=== PATIENT | female | born 1990 | race Caucasian/White ===

== ENCOUNTER → 2020-03-11 13:27 | Outpatient (BNVA) | payer OTHER, SELFPAY | PROVIDERS: PCP Internal Medicine; Referring Provider Internal Medicine; Visit Provider Nurse Practitioner | DX: K90.41 Non-celiac gluten sensitivity (principal); K58.9 Irritable bowel syndrome, unspecified; R10.9 Unspecified abdominal pain; R11.0 Nausea; K64.9 Unspecified hemorrhoids | CPT/HCPCS: 99214 ==

== ENCOUNTER → 2020-04-02 14:13 | Outpatient (BNVA) | payer OTHER, SELFPAY | PROVIDERS: PCP Internal Medicine; Visit Provider Nurse Practitioner | DX: K58.9 Irritable bowel syndrome, unspecified (principal); K90.41 Non-celiac gluten sensitivity; K62.89 Other specified diseases of anus and rectum; R11.0 Nausea; K64.9 Unspecified hemorrhoids | CPT/HCPCS: 99212 ==

== ENCOUNTER → 2020-09-30 09:20 | Outpatient (BNVA) | payer OTHER, SELFPAY | PROVIDERS: PCP Internal Medicine; Referring Provider Internal Medicine; Visit Provider Psychiatry & Neurology Neurology | DX: G47.00 Insomnia, unspecified (principal); G47.62 Sleep related leg cramps; G47.19 Other hypersomnia | CPT/HCPCS: 99202 ==

== ENCOUNTER → 2020-11-05 20:01 | Outpatient (REF) | payer OTHER, SELFPAY | LOC: HO.SL 20:01 | PROVIDERS: Visit Provider Psychiatry & Neurology Neurology | DX: G47.00 Insomnia, unspecified (principal); G47.19 Other hypersomnia; G47.62 Sleep related leg cramps | CPT/HCPCS: 95810 ==

== ENCOUNTER → 2020-12-16 08:35 | Outpatient (BNVA) | payer OTHER, SELFPAY | PROVIDERS: PCP Internal Medicine; Visit Provider Psychiatry & Neurology Neurology ==

== ENCOUNTER → 2020-12-23 13:14 | Outpatient (BNVA) | payer OTHER, SELFPAY | PROVIDERS: Visit Provider Nurse Practitioner ==

== ENCOUNTER 2021-05-12 06:43 | Outpatient (REF) | payer OTHER, SELFPAY ==
[2021-05-12 11:25] LABS: MANUAL DIFF FLAG NO
[2021-05-12 11:36] LABS: Basophils Absolute Auto 0.1 X10*3/uL (0.0-0.2); Basophils Percent Auto 0.4 % (0-2); Eosinophils Absolute Auto 0.3 X10*3/uL (0.0-0.4); Eosinophils Percent Auto 2.6 % (0-4); Hematocrit 42.6 % (37.0-47.0); Hemoglobin 14.6 g/dl (12.0-16.0); Imm Gran Abs Auto 0.03 X10*3/uL (0.00-0.03); Imm Gran Pct Auto 0.3 % (0.0-0.4); Lymphocytes Absolute Auto 4.6 X10*3/uL (1.2-4.9); Mean Corpuscular HGB Conc 34.3 g/dl (31.0-35.0); Mean Corpuscular Hemoglobin 31.3 pg (27.0-33.0); Mean Corpuscular Volume 91.4 fL (80.0-98.0); Monocytes Absolute Auto 0.6 X10*3/uL (0.1-1.2); Monocytes Percent Auto 5.3 % (2-11); Neutrophils Absolute Auto 6.4 x10*3/uL (2.0-8.3); Neutrophils Percent Auto 53.4 % (45-73); Platelet Count 386 X10*3/uL (160-400); Red Blood Count 4.66 X10*6/uL (4.20-5.50); Red Cell Distribution Width 12.5 % (11.0-16.0)
[2021-05-12 12:06] LABS: Alanine Aminotransferase 15 U/L (0-31); Albumin Level 4.3 g/dL (3.5-5.0); Alkaline Phosphatase 36 U/L (39-117); Anion Gap 13 (12-20); Aspartate Amino Transferase 12 U/L (5-31); Bilirubin Total 0.8 mg/dL (0.0-1.0); Blood Urea Nitrogen 8 mg/dL (9-16); Calcium 9.7 mg/dL (8.4-10.2); Carbon Dioxide 25 mmol/L (22-29); Chloride 108 mmol/L (96-108); Cholesterol 188 mg/dL; Estimated Glomerular Filt Rate > 60; Glucose Fasting 79 mg/dL (60-99); HDL Cholesterol 34 mg/dL; LDL Cholesterol Calculated 133 mg/dl; Potassium 4.2 mmol/L (3.3-5.1); Sodium 142 mmol/L (135-145); Total Protein 7.4 g/dL (6.5-8.0); Triglycerides 105 mg/dL
[2021-05-12 12:28] LABS: TSH reflex Free T4 1.72 uIU/mL (0.32-4.0)
== END 2021-05-12 06:44 | disposition home or self-care (01) ==
LOC: HO.HMGCLDS 06:43
PROVIDERS: PCP Internal Medicine; Visit Provider Internal Medicine
DX: E66.01 Morbid (severe) obesity due to excess calories (principal); G44.89 Other headache syndrome; M45.9 Ankylosing spondylitis of unspecified sites in spine; R52 Pain, unspecified
CPT/HCPCS: 36415; 80053; 80061; 84443; 85025

== ENCOUNTER 2022-10-09 10:45 | Outpatient (REF) | payer BC, SELFPAY ==
[2022-10-09 13:30] LABS: MANUAL DIFF FLAG NO
[2022-10-09 13:33] LABS: Basophils Absolute Auto 0.1 X10*3/uL (0.0-0.2); Basophils Percent Auto 0.7 % (0-2); Eosinophils Absolute Auto 0.1 X10*3/uL (0.0-0.4); Eosinophils Percent Auto 1.9 % (0-4); Hematocrit 41.9 % (37.0-47.0); Hemoglobin 14.4 g/dl (12.0-16.0); Imm Gran Abs Auto 0.02 X10*3/uL (0.00-0.03); Imm Gran Pct Auto 0.3 % (0.0-0.4); Lymphocytes Absolute Auto 3.3 X10*3/uL (1.2-4.9); Lymphocytes Percent Auto 44.8 % (20-40); Mean Corpuscular HGB Conc 34.4 g/dl (31.0-35.0); Mean Corpuscular Hemoglobin 30.6 pg (27.0-33.0); Mean Corpuscular Volume 89.1 fL (80.0-98.0); Mean Platelet Volume 9.3 fL (9.4-12.3); Monocytes Absolute Auto 0.5 X10*3/uL (0.1-1.2); Neutrophils Absolute Auto 3.3 x10*3/uL (2.0-8.3); Neutrophils Percent Auto 45.3 % (45-73); Platelet Count 323 X10*3/uL (160-400); Red Cell Distribution Width 12.4 % (11.0-16.0); White Blood Count 7.3 X10*3/uL (4.8-10.8)
[2022-10-09 14:00] LABS: Alanine Aminotransferase 27 U/L (0-31); Albumin Level 4.3 g/dL (3.5-5.0); Alkaline Phosphatase 35 U/L (39-117); Anion Gap 13 (12-20); Aspartate Amino Transferase 19 U/L (5-31); Bilirubin Total 0.9 mg/dL (0.0-1.0); Blood Urea Nitrogen 9 mg/dL (9-16); Calcium 9.7 mg/dL (8.4-10.2); Carbon Dioxide 25 mmol/L (22-29); Chloride 107 mmol/L (96-108); Cholesterol 189 mg/dL; Estimated Glomerular Filt Rate > 60; Glucose Fasting 86 mg/dL (60-99); HDL Cholesterol 36 mg/dL; LDL Cholesterol Calculated 130 mg/dl; Potassium 4.5 mmol/L (3.3-5.1); Sodium 140 mmol/L (135-145); Total Protein 7.2 g/dL (6.5-8.0); Triglycerides 115 mg/dL
[2022-10-09 14:15] LABS: TSH reflex Free T4 1.21 uIU/mL (0.32-4.0)
== END 2022-10-09 10:46 | disposition home or self-care (01) ==
LOC: HO.HMGCLDS 10:45
PROVIDERS: PCP Internal Medicine; Visit Provider Internal Medicine
DX: E66.09 Other obesity due to excess calories (principal); F33.9 Major depressive disorder, recurrent, unspecified; F41.1 Generalized anxiety disorder; F43.10 Post-traumatic stress disorder, unspecified; G89.29 Other chronic pain; M45.9 Ankylosing spondylitis of unspecified sites in spine; Z91.09 Other allergy status, other than to drugs and biological substances
CPT/HCPCS: 36415; 80053; 80061; 84443; 85025

== ENCOUNTER 2023-01-14 07:46 | Outpatient (AMB) | payer BC, SELFPAY ==
[2023-01-14 07:49] VITALS: BP 106/64; PULSE 84; O2SAT 98; BMI 44.5
--- NOTE | 2023-01-14 07:49 | MHC.PC.OV ---
Vital Signs 01/14/23 07:49 Height 5 ft Weight 228 lb BMI 44.5 BP 106/64 Blood Pressure Location Rt brachial Position Sitting Pulse 84 Pulse Source Pulse Oximeter Pulse Oximetry (%) 98 Oxygen Delivery Method Room Air Intake Visit Reasons: 3m follow up- need earliest Intake Note: Pt is here today for 3 months follow up visit. Allergies naproxen Allergy (Mild, Verified 01/14/23 07:51) hives etanercept [Enbrel] Adverse Reaction (Mild, Verified 01/14/23 07:51) injection site reaction methotrexate Adverse Reaction (Mild, Verified 01/14/23 07:51) rash, hairloss tizanidine Adverse Reaction (Mild, Verified 01/14/23 07:51) Unknown Medication List - Last Reconciled 01/14/23 by Jah Rodríguez MD adalimumab (Humira) 40 mg subcut Q2W cetirizine 10 mg PO DAILY 90 days clotrimazole-betamethasone 1-0.05 % 1 appl topical ONCE 30 days dicyclomine 20 mg (2 x 10 mg) PO QID 30 days L norgest/e.estradiol-e.estrad 0.15 mg-30 mcg (84)/10 mcg (7) 1 tab PO DAILY lamotrigine 200 mg PO DAILY lamotrigine 25 mg PO DAILY montelukast 10 mg PO DAILY 90 days ondansetron HCl 4 mg PO Q8H PRN pregabalin 150 mg PO BID propranolol 20 mg PO BID PRN 90 days tramadol 50 mg PO DAILY 90 days tramadol 50 mg PO DAILY 90 days Tobacco use date assessed: 01/14/23 Dental Screening Dental Screen Date: 01/14/23 Did you have a dental visit in the last 12 months?: Yes Did you have a dental problem in the last 6 months where you did not have access to dental care?: No Was dental information given to patient?: Patient has dentist HPI 3m follow up- need earliest HPI Details Patient is a 32-year-old female came in for 3 month follow-up appointment on pain management She is in a process to make appointment with Dr. Haskins Rheumatology at [facility], currently taking Humira Patient is on tramadol 50 mg daily for lower back pain secondary to ankylosing spondylitis? Medication has been helping her she is complying with the treatment plan.? Her IBS is flaring off and on causing bloating sensation in the abdomen diarrhea alternating with constipation She said that she was evaluated by Gastroenterology 2 years ago and she would like to go back and talk to them. Referral placed. Her other medications are propranolol for anxiety through Psychiatry Montelukast for allergies Lamotrigine through Psychiatry Maddie, by the air crew officer in [place]. Until she get establish with new air crew officer Dicyclomine for IBS Cetirizine for allergies Patient's BMI is above 40, she is requesting assistance , I have sent message to our dietitian to book appointment for the patient Patient is to return for follow-up in 3 months [facility] Medical History Ankylosing spondylitis Anxiety, generalized Chronic pain Depression, major, recurrent Difficulty sleeping Encounter for control pills maintenance Headache syndrome Pain management PTSD (post-traumatic stress disorder) Surgical History History of carpal tunnel surgery of right wrist History of wisdom tooth extraction Hx of cholecystectomy Hx of colonoscopy (~2011) Family History Father Obesity HTN (hypertension) Mother Asthma Obesity HTN (hypertension) Atrial fibrillation Stomach problems Brother No problems noted. 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 1. Little interest or pleasure in doing things: several days 2. Feeling down, depressed, or hopeless: several days 3. Trouble falling or staying asleep, or sleeping too much: nearly every day 4. Feeling tired or having little energy: nearly every day 5. Poor appetite or overeating: more than half the days 6. Feeling bad about yourself - or that you are a failure or have let yourself or your family down: not at all 7. Trouble concentrating on things, such as reading the newspaper or watching television: more than half the days 8. Moving or speaking so slowly that other people could have noticed. Or the opposite - being so fidgety or restless that you have been moving around a lot more than usual: not at all 9. Thoughts that you would be better off or of hurting yourself in some way: not at all Total score: 12 Depression Screening Interpretation: Positive 80741 - PHQ-9 Billing: Yes Source: Developed by Drs. Rosas Ravi, Nelly Jacobs, Corey Wallace and colleagues, with an educational parveen from [employer]. Thrive Questionnaire Date Thrive assessed: 07/01/21 JESSICA-7 AMB Questionnaire JESSICA-7 Date JESSICA - 7 assessed: 07/01/21 Source: Developed by Drs. Rosas Ravi, Nelly Jacobs, Corey Wallace and colleagues, with an educational parveen from [employer]. Review of Systems Const Denies chills and Denies fever(s) ENT Denies epistaxis and Denies nasal discharge Card Denies chest pain Resp Denies chest congestion, Denies cough and Denies hemoptysis Skin/Breast Denies rash Neuro Reports no additional complaints Psych Reports no additional complaints Endo Reports no additional complaints Physical exam (Primary Care) Vital Signs: Last Vital Signs Pulse 84 01/14/23 07:49 BP 106/64 01/14/23 07:49 Pulse Ox 98 01/14/23 07:49 Oxygen Delivery Method Room Air 01/14/23 07:49 BMI result Body Mass Index 44.5 Tobacco/Smoking Status: Tobacco use Status Tobacco use date assessed 10/06/22 10/06/22 13:26 Patient Tobacco Use Status Former Tobacco user 11/03/22 08:40 e-Cigarette/Vaping Use Currently Using 10/06/22 13:26 Depression Screening Interpretation: Positive Thrive Assessment: Date of Thrive Assessment Date Thrive assessed 07/01/21 10/06/22 13:26 Const General: cooperative, comfortable and no acute distress Orientation/consciousness: patient oriented x3 HENMT Head: Yes normocephalic Eyes General: appearance normal, both eyes and all related structures Neck Neck: Yes supple Resp Effort & Inspection: normal respiratory effort, no cough and no stridor Cardio Rhythm: regular rhythm Heart sounds: S1 normal heart sound present and S2 normal heart sound present Skin General skin exam: turgor normal Neuro General: patient oriented x3, tone normal and moves all extremities Extrem Right lower extremity: no edema Left lower extremity: no edema Assessment and Plan Assessment & Plan (1) Chronic pain: Code(s): G89.29 - Other chronic pain Qualifiers: Chronic pain type: chronic pain syndrome Qualified Code(s): G89.4 - Chronic pain syndrome (2) Ankylosing spondylitis: Comment: Management through air crew officer Code(s): M45.9 - Ankylosing spondylitis of unspecified sites in spine Qualifiers: Ankylosing spondylitis location: lumbar region Qualified Code(s): M45.6 - Ankylosing spondylitis lumbar region (3) Depression, major, recurrent: Comment: Management through Psychiatry Code(s): F33.9 - Major depressive disorder, recurrent, unspecified (4) Anxiety, generalized: Comment: Management through Psychiatry Code(s): F41.1 - Generalized anxiety disorder (5) Pain management: Code(s): R52 - Pain, unspecified (6) Environmental allergies: Code(s): Z91.09 - Other allergy status, other than to drugs and biological substances (7) PTSD (post-traumatic stress disorder): Code(s): F43.10 - Post-traumatic stress disorder, unspecified (8) IBS (irritable bowel syndrome): Code(s): K58.9 - Irritable bowel syndrome without diarrhea Qualifiers: Irritable bowel syndrome type: with both diarrhea and constipation Qualified Code(s): K58.2 - Mixed irritable bowel syndrome (9) Morbid obesity due to excess calories: Code(s): E66.01 - Morbid (severe) obesity due to excess calories (10) Bloating symptom: Code(s): R14.0 - Abdominal distension (gaseous) Plan Patient is a 32-year-old female came in for 3 month follow-up appointment on pain management She is in a process to make appointment with Dr. Haskins Rheumatology at [facility], currently taking Humira Patient is on tramadol 50 mg daily for lower back pain secondary to ankylosing spondylitis? Medication has been helping her she is complying with the treatment plan.? Her IBS is flaring off and on causing bloating sensation in the abdomen diarrhea alternating with constipation She said that she was evaluated by Gastroenterology 2 years ago and she would like to go back and talk to them. Referral placed. Her other medications are propranolol for anxiety through Psychiatry Montelukast for allergies Lamotrigine through Psychiatry Maddie, by the air crew officer in [place]. Until she get establish with new air crew officer Dicyclomine for IBS Cetirizine for allergies Patient's BMI is above 40, she is requesting assistance , I have sent message to our dietitian to book appointment for the patient Patient is to return for follow-up in 3 months Orders: Referrals Gastroenterology Referral K58.9 - Irritable bowel syndrome without diarrhea, R14.0 - Abdominal distension (gaseous) Medications: Refilled tramadol 50 mg PO DAILY 90 days 90 tabs 0RF G44.89 - Other headache syndrome, K58.9 - Irritable bowel syndrome without diarrhea, M45.9 - Ankylosing spondylitis of unspecified sites in spine, R52 - Pain, unspecified Coding Level of Care Code Est Pt Level 4 (52481) Diagnoses Chronic pain G89.4 Chronic pain type: chronic pain syndrome Ankylosing spondylitis M45.6 Ankylosing spondylitis location: lumbar region Depression, major, recurrent F33.9 Anxiety, generalized F41.1 Pain management R52 Environmental allergies Z91.09 PTSD (post-traumatic stress disorder) F43.10 IBS (irritable bowel syndrome) K58.2 Irritable bowel syndrome type: with both diarrhea and constipation Morbid obesity due to excess calories E66.01 Bloating symptom R14.0
== END 2023-01-14 09:00 | disposition home or self-care (01) ==
PROVIDERS: PCP Internal Medicine; Visit Provider Internal Medicine
DX: K58.2 Mixed irritable bowel syndrome (principal); F33.9 Major depressive disorder, recurrent, unspecified; F43.10 Post-traumatic stress disorder, unspecified; E66.01 Morbid (severe) obesity due to excess calories; M45.6 Ankylosing spondylitis lumbar region; Z91.09 Other allergy status, other than to drugs and biological substances; Z68.41 Body mass index [BMI] 40.0-44.9, adult; G89.4 Chronic pain syndrome; F41.1 Generalized anxiety disorder; R52 Pain, unspecified; R14.0 Abdominal distension (gaseous)
CPT/HCPCS: 99214

== ENCOUNTER 2023-02-11 14:42 | Outpatient (AMB) | payer BC, SELFPAY ==
[2023-02-11 15:35] VITALS: BP 122/90; PULSE 74; O2SAT 98; BMI 46.5
--- NOTE | 2023-02-11 15:35 | AM.OFFWIN_ITS ---
Intake Vital Signs 02/11/23 15:35 Height 5 ft Weight 238 lb BMI 46.5 BP 122/90 H Blood Pressure Location Rt brachial Position Sitting Pulse 74 Pulse Source Pulse Oximeter Pulse Oximetry (%) 98 Oxygen Delivery Method Room Air Intake Visit Reasons: EP LT Foot infection Intake Note: Patient here for left foot toes infected for a while. she had very bad eczema on the left foot and after that was treated she developed yellowing toe nails. pt denies any pain, Patient Tobacco Use Status: Former Tobacco user Quit Date: 2018 Allergies naproxen Allergy (Mild, Verified 02/11/23 15:38) hives etanercept [Enbrel] Adverse Reaction (Mild, Verified 02/11/23 15:38) injection site reaction methotrexate Adverse Reaction (Mild, Verified 02/11/23 15:38) rash, hairloss tizanidine Adverse Reaction (Mild, Verified 02/11/23 15:38) Unknown Do you need a note to return to daycare/school/sports/work: No HPI HPI Comments History of Present Illness Details This is a 32-year-old female who presents to the office today for sick visit. Patient complaining of yellowing of her toenails for the past several weeks to months. She states she was treated for eczema on her foot several months ago and that seemed to resolve. However, she started to get worsening yellowing of her toenails since then. She otherwise feels well. [facility] Medical History Ankylosing spondylitis Anxiety, generalized Chronic pain Depression, major, recurrent Difficulty sleeping Encounter for control pills maintenance Headache syndrome Pain management PTSD (post-traumatic stress disorder) Surgical History History of carpal tunnel surgery of right wrist History of wisdom tooth extraction Hx of cholecystectomy Hx of colonoscopy (~2011) Family History Father Obesity HTN (hypertension) Mother Asthma Obesity HTN (hypertension) Atrial fibrillation Stomach problems Brother No problems noted. 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 Cognitive needs: No Hearing needs: No Vision needs: Yes Review of Systems Const All systems reviewed & are unremarkable except as noted in HPI and below Reports no additional complaints Eyes Reports no additional complaints ENT Reports no additional complaints Card Reports no additional complaints Resp Reports no additional complaints GI Reports no additional complaints Reports no additional complaints Musc Reports no additional complaints Skin/Breast Reports system reviewed and no additional complaints, except as documented Neuro Reports no additional complaints Psych Reports no additional complaints Endo Reports no additional complaints Abhishek/Lymph Reports no additional complaints Aller/Immun Reports no additional complaints Physical Exam Vital Signs: Last Vital Signs Pulse 74 02/11/23 15:35 BP 122/90 H 02/11/23 15:35 Pulse Ox 98 02/11/23 15:35 Oxygen Delivery Method Room Air 02/11/23 15:35 BMI result Body Mass Index 46.5 Const Other: Vital signs reviewed. Constitutional: Non-toxic appearing. No acute distress. Well-developed and well-nourished. HEENT: Normocephalic and atraumatic. Skin: Warm and dry. No rashes or lesions noted. Yellowing of all 5 toenails of the right foot. No erythema. No drainage. No paronychia. Neck: Full and painless range of motion. No cervical lymphadenopathy. Cardio: Regular rate and rhythm. No murmurs, gallops, or rubs. No lower extremity edema. No JVD. Pulmonary: No respiratory distress. No accessory muscle usage. Clear to auscultation bilaterally without wheezing, crackles, or rhonchi. Gastrointestinal: Soft, nontender, and nondistended in all 4 quadrants. Normoactive bowel sounds in all 4 quadrants. Genitourinary: No CVA tenderness. Musculoskeletal: Normal range of motion in joints throughout the body. No deformity or other signs of injury. Neuro: Alert and oriented x4. Cranial nerves 2-12 grossly intact. No focal deficits appreciated. Psych: Normal mood and affect. Assessment & Plan Assessment & Plan (1) Onychomycosis: Code(s): B35.1 - Tinea unguium Plan: This is a 32-year-old female presenting with yellowing of all 5 of her right toenails. History and physical most consistent with onychomycosis. Patient sent home on p.o. terbinafine 250 mg daily times 12 weeks. Patient advised to follow- up here or go to the emergency room for persistent/ worsening symptoms. Patient verbalizes her understanding and she is in agreement with the plan. Medications: New terbinafine HCl 250 mg PO DAILY 84 tabs 0RF Coding Level of Care Code Est Pt Level 3 (73081) Diagnoses Onychomycosis B35.1
== END 2023-02-11 16:17 | disposition home or self-care (01) ==
PROVIDERS: PCP Internal Medicine; Visit Provider Physician Assistant Medical
DX: B35.1 Tinea unguium (principal)
CPT/HCPCS: 99213

== ENCOUNTER 2023-02-16 07:47 | Outpatient (AMB) | payer BC, SELFPAY ==
--- NOTE | 2023-02-16 07:53 | MHC.OFFVIS ---
Intake Vital Signs 02/16/23 07:59 Height 5 ft Weight 227 lb BMI 44.3 BP 137/77 Blood Pressure Location Lt brachial Position Sitting Pulse 75 Intake Visit Reasons: follow up Intake Note: Patient follow up for cramping. Patient cc: abdominal cramping with bloating, between diarrhea and constipation and swallowing problems on and off. Arterial Embalmer Required: No Accompanied by: Self / Same As Patient Allergies naproxen Allergy (Mild, Verified 02/16/23 07:52) hives etanercept [Enbrel] Adverse Reaction (Mild, Verified 02/16/23 07:52) injection site reaction methotrexate Adverse Reaction (Mild, Verified 02/16/23 07:52) rash, hairloss tizanidine Adverse Reaction (Mild, Verified 02/16/23 07:52) Unknown HPI follow up HPI Details Assessment & Plan (1) IBS (irritable bowel syndrome): Code(s): K58.9 - Irritable bowel syndrome without diarrhea Plan: She tells me that she has been doing fairly well. Lately she has been more constipated than having diarrhea which she says is better for her point use. She asks why this could be and I tell her variety of factors could be a play including diet, hydration, stress levels or even new medications. She seems to think that it may have something to do with new medications. She has requesting a refill of her dicyclomine 10 mg which is always been effective for her for cramping. She takes 1 and sometimes 2 at a time so we will give her the 10 mg dose and I have no problem keeping this in her tool belt. Despite the increased constipation she has not had more trouble with hemorrhoids. At this time she has had no weight loss and no alarm signs and no other symptoms and is satisfied with the regimen. She is agreeable to a 6 month follow-up (2) Hemorrhoids: Code(s): K64.9 - Unspecified hemorrhoids (3) Abdominal pain: Code(s): R10.9 - Unspecified abdominal pain Qualifiers: Abdominal location: right upper quadrant Qualified Code(s): R10.11 - Right upper quadrant pain (4) Gluten intolerance: Code(s): K90.41 - Non-celiac gluten sensitivity (5) Abdominal cramping: Code(s): R10.9 - Unspecified abdominal pain (6) Nausea: Code(s): R11.0 - Nausea Medications: New dicyclomine 20 mg (2 x 10 mg) PO QID 30 days 240 caps 6RF K58.9 - Irritable bowel syndrome wit hout diarrhea, R10 .9 - Unspecified a bdominal pain TODAY'S VISIT Pt has been lost to follow up since 2020.. She had moved to [place] with a romantic partner but that did not work out she has returned to this area. 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 She says the bentyl helps when she has cramps but does not address all of her sx. She has a constant urge to defecate, and she is making multiple trips to the and she has constant bloating. If she moves her bowels immediately it will be watery stools, but if she holds it CIC will start, then she may not have a BM for 2 days and when she does move her bowels it is of varying consistencies but not very hard. If she takes the bentyl regularly she will have diarrhea which interferes with her work. She cut out gluten and this helped somewhat with cramping. She is s/p alva. I will start a trial of cholestyramine qd, get RAST testing, panc elastase, TTGA. Consider if creon is needed depending on her response. 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 She certainly seems to have some disorganization of the bowels that may be due to bile irritation or may be due to poor digestion. ROV 4 weeks. [facility] Medical History Ankylosing spondylitis Anxiety, generalized Chronic pain Depression, major, recurrent Difficulty sleeping Encounter for control pills maintenance Headache syndrome Pain management PTSD (post-traumatic stress disorder) Surgical History History of carpal tunnel surgery of right wrist History of wisdom tooth extraction Hx of cholecystectomy Hx of colonoscopy (~2011) Family History Father Obesity HTN (hypertension) Mother Asthma Obesity HTN (hypertension) Atrial fibrillation Stomach problems Brother No problems noted. 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 Cognitive needs: No Hearing needs: No Vision needs: Yes Review of Systems Const Denies fatigue, Denies fever(s), Denies night sweats, Denies poor appetite and Denies weight loss Eyes Details: glasses Reports requires corrective lenses ENT Reports Normal hearing present, Denies dental pain, Denies dysphagia, Denies hearing loss, Denies mouth pain, Denies odynophagia, Denies throat swelling, Denies tongue swelling and Reports other (Dentition adequate) Card Reports no additional complaints Resp Reports no additional complaints GI Denies abdominal pain, Denies melena, Reports bloating, Denies hematochezia, Reports constipation, Denies GI cramping, Denies dysphagia, Reports excessive flatus, Denies early satiety, Denies heartburn, Reports diarrhea, Denies nausea, Denies odynophagia, Denies vomiting and Denies hematemesis Skin/Breast Denies pruritus, Denies lesions, Denies rash and Denies jaundice Neuro Reports Normal hearing present and Denies Abnormal speech present Endo Denies fatigue Aller/Immun Denies throat swelling and Denies tongue swelling Physical Exam Vital Signs: Last Vital Signs Pulse 75 02/16/23 07:59 BP 137/77 02/16/23 07:59 BMI result Body Mass Index 44.3 Const General: cooperative, no acute distress, well developed and well groomed Nutritional Appearance: well nourished and obese morbidly obese Orientation/consciousness: oriented to person, oriented to place and oriented to time Limitations: No language barrier HEENT Head: Yes normocephalic and Yes atraumatic Eyes General: appearance normal, both eyes and all related structures Pupils: Equal, round and reactive pupils present Neck Neck: Yes normal visual inspection and Yes no lymphadenopathy Thyroid: Thyroid normal Resp Effort & Inspection: normal respiratory effort and able to speak in complete sentences Auscultation: clear to auscultation bilaterally Cardio Rate: regular rate Rhythm: regular rhythm Heart sounds: Normal, physiologic split S2 sound present Peripheral pulses: radial pulses present and posterior tibial pulses present GI Inspection: No distended, Yes Abdominal panniculus present and Yes obesity Palpation (GI): Soft to palpation, nontender, no guarding, not rigid and No hepatosplenomegaly present Percussion: Yes normal to percussion Auscultation: normal bowel sounds Rectal Exam - Female: deferred Skin General skin exam: no rashes or lesions noted, turgor normal, skin not dry, no jaundice, No spider nevi and no striae Rashes: no rashes Nails: normal Neuro General: oriented to person, oriented to place and oriented to time Cranial nerves: Yes Equal, round and reactive pupils present and Yes Normal hearing present Speech: No Abnormal speech present Extrem General: Yes normal to inspection, No clubbing, No cyanosis and No edema Psych Appearance: grossly normal and well kempt Mental Status: mental status grossly normal Speech and movement: Normal speech and movement present Affect: normal affect Attitude: cooperative Thought process: Normal thought process present and not confabulating Thought content: Normal thought content present Insight: Fair insight present (Psych) Judgement: Fair judgement present (Psych) Assessment & Plan Assessment & Plan (1) IBS (irritable bowel syndrome): Code(s): K58.9 - Irritable bowel syndrome without diarrhea Qualifiers: Irritable bowel syndrome type: with both diarrhea and constipation Qualified Code(s): K58.2 - Mixed irritable bowel syndrome Plan: .Pt has been lost to follow up since 2020.. She had moved to [place] with a romantic partner but that did not work out she has returned to this area. 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 She says the bentyl helps when she has cramps but does not address all of her sx. She has a constant urge to defecate, and she is making multiple trips to the [place] and she has constant bloating. If she moves her bowels immediately it will be watery stools, but if she holds it CIC will start, then she may not have a BM for 2 days and when she does move her bowels it is of varying consistencies but not very hard. If she takes the bentyl regularly she will have diarrhea which interferes with her work. She cut out gluten and this helped somewhat with cramping. She is s/p alva. I will start a trial of cholestyramine qd, get RAST testing, panc elastase, TTGA. Consider if creon is needed depending on her response. 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 She certainly seems to have some disorganization of the bowels that may be due to bile irritation or may be due to poor digestion. ROV 4 weeks. (2) Abdominal cramping: Code(s): R10.9 - Unspecified abdominal pain (3) Gluten intolerance: Code(s): K90.41 - Non-celiac gluten sensitivity (4) Diarrhea: Code(s): R19.7 - Diarrhea, unspecified Orders: Orders Transglutaminase IgA Today R19.7 - Diarrhea, unspecified Gliadin Ab Panel Today R19.7 - Diarrhea, unspecified Rast Allergen Today R19.7 - Diarrhea, unspecified Pancreatic Elastase-1 Today R19.7 - Diarrhea, unspecified Transglutaminase Ab IgG Today R19.7 - Diarrhea, unspecified Medications: New cholestyramine (with sugar) 4 gram administer w/meal; avoid other meds within 1hr before or 4-6hr after dose 4 grams PO DAILY 378 grams 0RF K58.9 - Irritable bowel syndrome without diarrhea Coding Level of Care Code Est Pt Level 4 (57364) Diagnoses Irritable bowel syndrome with both constipation and diarrhea K58.2 Irritable bowel syndrome type: with both diarrhea and constipation Abdominal cramping R10.9 Gluten intolerance K90.41 Diarrhea R19.7
[2023-02-16 07:59] VITALS: BP 137/77; PULSE 75; BMI 44.3
== END 2023-02-16 08:24 | disposition home or self-care (01) ==
PROVIDERS: PCP Internal Medicine; Visit Provider Nurse Practitioner
DX: K58.2 Mixed irritable bowel syndrome (principal); R10.9 Unspecified abdominal pain; K90.41 Non-celiac gluten sensitivity; R19.7 Diarrhea, unspecified
CPT/HCPCS: 99214

== ENCOUNTER → 2023-02-16 07:47 | Outpatient (BNVA) | payer BC, SELFPAY | PROVIDERS: PCP Internal Medicine; Visit Provider Nurse Practitioner ==

== ENCOUNTER 2023-03-12 08:26 | Outpatient (REF) | payer BC, OTHER, SELFPAY ==
[2023-03-14 18:24] LABS: Gliadin Deamidated IgA Ab <1.0 U/mL; Gliadin Deamidated IgG Ab <1.0 U/mL; Transglutaminase Ab IgG <1.0 U/mL; Transglutaminase IgA <1.0 U/mL
== END 2023-03-12 08:27 | disposition home or self-care (01) ==
LOC: HO.HMGCLDS 08:26
PROVIDERS: PCP Internal Medicine; Visit Provider Nurse Practitioner
DX: R19.7 Diarrhea, unspecified (principal)
CPT/HCPCS: 36415; 86003; 86258; 86364

== ENCOUNTER 2023-03-13 15:45 | Outpatient (REF) | payer BC, SELFPAY | END 2023-03-13 15:46 | disposition home or self-care (01) | LOC: HO.HMGCLNP 15:45 | PROVIDERS: Visit Provider Nurse Practitioner | DX: Z13.89 Encounter for screening for other disorder (principal) ==

== ENCOUNTER 2023-03-14 07:27 | Outpatient (REF) | payer BC, SELFPAY | END 2023-03-14 07:28 | disposition home or self-care (01) | LOC: HO.HMGCLNP 07:27 | PROVIDERS: Visit Provider Nurse Practitioner | DX: R19.7 Diarrhea, unspecified (principal) | CPT/HCPCS: 82656 ==

== ENCOUNTER → 2023-04-13 15:37 | Outpatient (BNVA) | payer BC, SELFPAY | PROVIDERS: PCP Internal Medicine; Visit Provider Nurse Practitioner ==

== ENCOUNTER → 2023-04-13 15:37 | Outpatient (AMB) | payer BC, OTHER, SELFPAY ==
--- NOTE | 2023-04-13 15:45 | A.OFFVIS_ITS ---
Intake Vital Signs 04/13/23 15:47 Height 5 ft Weight 234 lb 2.095 oz BMI 45.7 BP 133/80 Blood Pressure Location Lt brachial Position Sitting Pulse 72 Intake Visit Reasons: 2 month follow up Intake Note: Patient returns to in office visit today in 2 months follow up of labs. CC: Patient reports she continues to have abdominal cramping, diarrhea, bloating, and occasional choking with foods. She states she has not been able to take medications prescribed d/t conflict with other medications. Oncology Technician Required: No Accompanied by: Self / Same As Patient Allergies naproxen Allergy (Mild, Verified 05/25/23 10:28) hives etanercept [Enbrel] Adverse Reaction (Mild, Verified 05/25/23 10:28) injection site reaction methotrexate Adverse Reaction (Mild, Verified 05/25/23 10:28) rash, hairloss tizanidine Adverse Reaction (Mild, Verified 05/25/23 10:28) Unknown HPI 2 month follow up HPI Details Assessment & Plan (1) IBS (irritable bowel syndrome): Code(s): K58.9 - Irritable bowel syndrome without diarrhea Qualifiers: Irritable bowel syndrome type: with both diarrhea and constipation Qualified Code(s): K58.2 - Mixed irritable bowel syndrome Plan: .Pt has been lost to follow up since .. She had moved to [place] with a romantic partner but that did not work out she has returned to this area. 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 She says the bentyl helps when she has cramps but does not address all of her sx. She has a constant urge to defecate, and she is making multiple trips to the [place] and she has constant bloating. If she moves her bowels immediately it will be watery stools, but if she holds it CIC will start, then she may not have a BM for 2 days and when she does move her bowels it is of varying consistencies but not very hard. If she takes the bentyl regularly she will have diarrhea which interferes with her work. She cut out gluten and this helped somewhat with cramping. She is s/p alva. I will start a trial of cholestyramine qd, get RAST testing, panc elastase, TTGA. Consider if creon is needed depending on her response. 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 She certainly seems to have some disorganization of the bowels that may be due to bile irritation or may be due to poor digestion. ROV 4 weeks. (2) Abdominal cramping: Code(s): R10.9 - Unspecified abdominal pain (3) Gluten intolerance: Code(s): K90.41 - Non-celiac gluten sensitivity (4) Diarrhea: Code(s): R19.7 - Diarrhea, unspecified Orders: Orders Transglutaminase I gA Today R19.7 - Diarrhea, unspecified Gliadin Ab Panel Today R19.7 - Diarrhea, unspecified Rast Allergen Today R19.7 - Diarrhea, unspecified Pancreatic Elastas e-1 Today R19.7 - Diarrhea, unspecified Transglutaminase A b IgG Today R19.7 - Diarrhea, unspecified Medications: New cholestyramine ( sugar) 4 gram administer w/beverly l; avoid other med s within 1hr befor e or 4-6hr after d ose 4 grams PO DAILY 378 grams 0RF K58.9 - Irritable bowel syndrome wit hout diarrhea LABS: Laboratory Tests 03/12/23 08:38 Tiss Transglutamin IgG <1.0 Tiss Transglutamin IgA <1.0 Anti-Gliadin IgG A b <1.0 Gliadin (Deamidat) IgA <1.0 RAST panel shows only a mild allergy to sesame seeds 03/14/23-[address]: ORDERED: Pancr Elastase Test Result Flag Refere nce Si te Pancr Elastase SEE NOTE QU M PANCREATI C ELASTASE-1 >500 mcg/g TODAY'S VISIT She felt better with the cholestyramine, but with her extensive meds she had trouble getting the bid doses in. But it did help with the bloating. We will go to viji as his plays better with other meds. Obviously this would be a problem for Tristian as well. She will have occasional CIC,so viji may be a better player for this reason as well. What she experiences is feeling of incomplete evacuation and possible gas trapping. Try bentyl bid starting on her day off social know how it affects her. Stop cholestyramine for now. ROV 6 weeks. COUNT INCLUDES THE [facility] Medical History Pain management Headache syndrome Encounter for control pills maintenance PTSD (post-traumatic stress disorder) Difficulty sleeping Chronic pain Anxiety, generalized Depression, major, recurrent Ankylosing spondylitis Surgical History History of carpal tunnel surgery of right wrist History of wisdom tooth extraction Hx of cholecystectomy Hx of colonoscopy (~2011) Family History Father Obesity HTN (hypertension) Mother Asthma Obesity HTN (hypertension) Atrial fibrillation Stomach problems Brother No problems noted. 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 Cognitive needs: No Hearing needs: No Vision needs: Yes Review of Systems Const Denies fatigue, Denies fever(s), Denies night sweats, Denies poor appetite and Denies weight loss Eyes Details: glasses Reports requires corrective lenses ENT Reports Normal hearing present, Denies dental pain, Denies dysphagia, Denies hearing loss, Denies mouth pain, Denies odynophagia, Denies throat swelling, Denies tongue swelling and Reports other (Dentition adequate) Card Reports no additional complaints Resp Reports no additional complaints GI Denies abdominal pain, Denies melena, Reports bloating, Denies hematochezia, Reports constipation, Denies GI cramping, Denies dysphagia, Denies excessive flatus, Denies early satiety, Denies heartburn, Reports diarrhea, Denies nausea, Denies odynophagia, Denies vomiting and Denies hematemesis Skin/Breast Denies pruritus, Denies lesions, Denies rash and Denies jaundice Neuro Reports Normal hearing present and Denies Abnormal speech present Endo Denies fatigue Aller/Immun Denies throat swelling and Denies tongue swelling Physical Exam Vital Signs: Last Vital Signs Pulse 72 04/13/23 15:47 BP 133/80 04/13/23 15:47 BMI result Body Mass Index 45.7 Const General: cooperative, no acute distress, well developed and well groomed Nutritional Appearance: well nourished and obese morbidly obese Orientation/consciousness: oriented to person, oriented to place and oriented to time Limitations: No language barrier HEENT Head: Yes normocephalic and Yes atraumatic Eyes General: appearance normal, both eyes and all related structures Pupils: Equal, round and reactive pupils present Neck Neck: Yes normal visual inspection and Yes no lymphadenopathy Thyroid: Thyroid normal Resp Effort & Inspection: normal respiratory effort and able to speak in complete sentences Auscultation: clear to auscultation bilaterally Cardio Rate: regular rate Rhythm: regular rhythm Heart sounds: Normal, physiologic split S2 sound present Peripheral pulses: radial pulses present and posterior tibial pulses present GI Inspection: No distended, Yes Abdominal panniculus present and Yes obesity Palpation (GI): Soft to palpation, nontender, no guarding, not rigid and No hepatosplenomegaly present Percussion: Yes normal to percussion Auscultation: normal bowel sounds Rectal Exam - Female: deferred Skin General skin exam: no rashes or lesions noted, turgor normal, skin not dry, no jaundice, No spider nevi and no striae Rashes: no rashes Nails: normal Neuro General: oriented to person, oriented to place and oriented to time Cranial nerves: Yes Equal, round and reactive pupils present and Yes Normal hearing present Speech: No Abnormal speech present Extrem General: Yes normal to inspection, No clubbing, No cyanosis and No edema Psych Appearance: grossly normal and well kempt Mental Status: mental status grossly normal Speech and movement: Normal speech and movement present Affect: normal affect Attitude: cooperative Thought process: Normal thought process present and not confabulating Thought content: Normal thought content present Insight: Limited insight present (Psych) Judgement: Limited judgement present (Psych) Results Reviewed Results Reviewed: Laboratory Tests 03/12/23 08:38 Tiss Transglutamin IgG <1.0 Tiss Transglutamin IgA <1.0 Anti-Gliadin IgG Ab <1.0 Gliadin (Deamidat) IgA <1.0 RAST panel shows only a mild allergy to sesame seeds 03/14/23-[address]: ORDERED: Pancr Elastase Test Result Flag Reference Site Pancr Elastase SEE NOTE QUM PANCREATIC ELASTASE-1 >500 mcg/g Assessment & Plan Assessment & Plan (1) Diarrhea: Code(s): R19.7 - Diarrhea, unspecified Medications: New [id number] 36,000-114,000- 180,000 unit (Creon) administer with meals and/or snacks 2 caps PO BID 60 caps 6RF R19.7 - Diarrhea, unspecified Coding Level of Care Code Est Pt Level 3 (59199) Diagnoses Diarrhea R19.7
[2023-04-13 15:47] VITALS: BP 133/80; PULSE 72; BMI 45.7
== END ==
PROVIDERS: PCP Internal Medicine; Referring Provider Internal Medicine; Visit Provider Nurse Practitioner
DX: R19.7 Diarrhea, unspecified (principal)
CPT/HCPCS: 99213

== ENCOUNTER 2023-04-20 09:23 | Outpatient (AMB) | payer BC, SELFPAY ==
[2023-04-20 09:25] VITALS: BP 106/70; PULSE 90; O2SAT 98; BMI 46.1
--- NOTE | 2023-04-20 09:25 | A.OFFPC_ITS ---
Vital Signs 04/20/23 09:25 Height 5 ft Weight 236 lb BMI 46.1 BP 106/70 Blood Pressure Location Lt brachial Position Sitting Pulse 90 Pulse Source Pulse Oximeter Pulse Oximetry (%) 98 Oxygen Delivery Method Room Air Intake Visit Reasons: 3 month fu Allergies naproxen Allergy (Mild, Verified 04/20/23 09:25) hives etanercept [Enbrel] Adverse Reaction (Mild, Verified 04/20/23 09:25) injection site reaction methotrexate Adverse Reaction (Mild, Verified 04/20/23 09:25) rash, hairloss tizanidine Adverse Reaction (Mild, Verified 04/20/23 09:25) Unknown Medication List - Last Reconciled 04/20/23 by Jah Rodríguez MD adalimumab (Humira) 40 mg subcut QWEEK cetirizine 10 mg PO DAILY 90 days clotrimazole-betamethasone 1-0.05 % 1 appl topical ONCE 30 days dicyclomine 20 mg (2 x 10 mg) PO QID 30 days L norgest/e.estradiol-e.estrad 0.15 mg-30 mcg (84)/10 mcg (7) 1 tab PO DAILY lamotrigine 200 mg PO DAILY lamotrigine 25 mg PO DAILY shclov-aijfrucx-lpbmoko 36,000-114,000- 180,000 unit (Creon) 2 caps PO BID methylprednisolone 4 mg PO DAILY PRN montelukast 10 mg PO DAILY 90 days pregabalin 150 mg PO BID propranolol 20 mg PO BID PRN 90 days terbinafine HCl 250 mg PO DAILY tramadol 50 mg PO DAILY 90 days Tobacco use date assessed: 04/20/23 Dental Screening Dental Screen Date: 04/20/23 Did you have a dental visit in the last 12 months?: No Did you have a dental problem in the last 6 months where you did not have access to dental care?: No Was dental information given to patient?: Patient has dentist HPI 3 month fu HPI Details Patient is a 32-year-old female came in for 3 month follow-up appointment on pain management Ankylosing spondylitis: Treated by Dr. Haskins [facility] at [facility], currently taking Humira Patient is on tramadol 50 mg daily for lower back pain secondary to ankylosing spondylitis? Medication has been helping her she is complying with the treatment plan.? Her IBS is flaring off and on causing bloating sensation in the abdomen diarrhea alternating with constipation BMI is 46.1 patient is struggling with weight We discussed phentermine side effects today patient will read on it and will get back to me She is aware that this is a controlled medication and will require monthly visit for monitoring. She already had visit with dietitian Her other medications are propranolol for anxiety through Psychiatry Montelukast for allergies Lamotrigine through Psychiatry Lyrica, by the automatic data processing planner Dicyclomine for IBS Cetirizine for allergies She also have discolored toenails, patient was seen in urgent care and was given terbinafine for 2 months Patient says that she has finished the medication however still have discoloration. Explained to her that we do not start terbinafine before confirming the diagnosis with nail clipping And getting baseline labs to monitor liver function as medication can cause problem. And after that periodic labs are needed, usually it takes 4-6 months for toenail fungus to resolve with this medication. [facility] Medical History Pain management Headache syndrome Encounter for control pills maintenance PTSD (post-traumatic stress disorder) Difficulty sleeping Chronic pain Anxiety, generalized Depression, major, recurrent Ankylosing spondylitis Surgical History History of carpal tunnel surgery of right wrist History of wisdom tooth extraction Hx of cholecystectomy Hx of colonoscopy (~2011) Family History Father Obesity HTN (hypertension) Mother Asthma Obesity HTN (hypertension) Atrial fibrillation Stomach problems Brother No problems noted. 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 1. Little interest or pleasure in doing things: several days 2. Feeling down, depressed, or hopeless: not at all 3. Trouble falling or staying asleep, or sleeping too much: nearly every day 4. Feeling tired or having little energy: nearly every day 5. Poor appetite or overeating: more than half the days 6. Feeling bad about yourself - or that you are a failure or have let yourself or your family down: not at all 7. Trouble concentrating on things, such as reading the newspaper or watching television: nearly every day 8. Moving or speaking so slowly that other people could have noticed. Or the opposite - being so fidgety or restless that you have been moving around a lot more than usual: more than half the days 9. Thoughts that you would be better off or of hurting yourself in some way: not at all Total score: 14 Depression Screening Interpretation: Positive Depression Screening Follow-up: Existing condition and In treatment Depression Screening Done: Yes 36484 - PHQ-9 Billing: Yes Source: Developed by Drs. Rosas Ravi, Nelly Jacobs, Corey Wallace and colleagues, with an educational parveen from [employer]. Thrive Questionnaire Date Thrive assessed: 07/01/21 AUDIT C Alcohol Use Questionnaire (AUDIT-C) 1. How often do you have a drink containing alcohol?: Never 3. How often do you have six or more drinks on one occasion?: Never Total Score: 0 Score Reviewed/Action Taken: Yes JESSICA-7 AMB Questionnaire JESSICA-7 Date JESSICA - 7 assessed: 04/20/23 Feeling nervous, anxious, or on edge: 1 = Several days Not being able to stop or control worryin = Several days Worrying too much about different things: 1 = Several days Trouble relaxin = Several days Being so restless that it is hard to sit still: 2 = More than half the days Becoming easily annoyed or irritable: 1 = Several days Feeling afraid as if something awful might happen: 0 = Not at all Total JESSICA-7 score (0-4 normal; 5-9 mild; 10-14 moderate; 15-21 severe): 7 Source: Developed by Drs. Rosas Ravi, Corey Belloenke and colleagues, with an educational parveen from [employer]. JESSICA-7 Assessment Billing JESSICA-7 Assessment Tool: JESSICA-7 Assessment 87702 Review of Systems Const Denies chills and Denies fever(s) ENT Denies epistaxis and Denies nasal discharge Card Denies chest pain Resp Denies chest congestion, Denies cough and Denies hemoptysis GI Denies diarrhea and Denies nausea Skin/Breast Denies rash Neuro Reports no additional complaints Psych Reports no additional complaints Endo Reports no additional complaints Physical exam (Primary Care) Vital Signs: Last Vital Signs Pulse 90 04/20/23 09:25 BP 106/70 04/20/23 09:25 Pulse Ox 98 04/20/23 09:25 Oxygen Delivery Method Room Air 04/20/23 09:25 BMI result Body Mass Index 46.1 Tobacco/Smoking Status: Tobacco use Status Tobacco use date assessed 04/20/23 04/20/23 09:28 Patient Tobacco Use Status Former Tobacco user 04/20/23 09:28 e-Cigarette/Vaping Use Currently Using 04/20/23 09:28 PHQ-9: PHQ-9 Score PHQ-9: Total score 14 04/20/23 10:24 Depression Screening Interpretation: Positive Depression Screening Follow-up: Existing condition and In treatment Thrive Assessment: Date of Thrive Assessment Date Thrive assessed 07/01/21 04/20/23 09:28 Const General: cooperative, comfortable and no acute distress Orientation/consciousness: patient oriented x3 HENMT Head: Yes normocephalic Eyes General: appearance normal, both eyes and all related structures Neck Neck: Yes supple Resp Effort & Inspection: normal respiratory effort, no cough and no stridor Cardio Rhythm: regular rhythm Heart sounds: S1 normal heart sound present and S2 normal heart sound present Skin General skin exam: turgor normal Neuro General: patient oriented x3, tone normal and moves all extremities Extrem Right lower extremity: no edema Left lower extremity: no edema Assessment and Plan Assessment & Plan (1) Mood disorder: Code(s): F39 - Unspecified mood [affective] disorder (2) Ankylosing spondylitis: Comment: Management through automatic data processing planner Code(s): M45.9 - Ankylosing spondylitis of unspecified sites in spine Qualifiers: Ankylosing spondylitis location: lumbar region Qualified Code(s): M45.6 - Ankylosing spondylitis lumbar region (3) Morbid obesity due to excess calories: Code(s): E66.01 - Morbid (severe) obesity due to excess calories (4) Environmental allergies: Code(s): Z91.09 - Other allergy status, other than to drugs and biological substances (5) IBS (irritable bowel syndrome): Code(s): K58.9 - Irritable bowel syndrome without diarrhea Qualifiers: Irritable bowel syndrome type: with both diarrhea and constipation Qualified Code(s): K58.2 - Mixed irritable bowel syndrome (6) Mycotic toenails: Code(s): B35.1 - Tinea unguium Orders: Orders Complete Blood Count Auto Diff Today E66.01 - Morbid (severe) obesity due to excess calories, E66.09 - Other obesity due to excess calories, F39 - Unspecified mood [affective] disorder, K58.9 - Irritable bowel syndrome without diarrhea, M45.9 - Ankylosing spondylitis of unspecified sites in spine, Z91.09 - Other allergy status, other than to drugs and biological substances Comprehensive Met. Panel Today E66.01 - Morbid (severe) obesity due to excess calories, E66.09 - Other obesity due to excess calories, F39 - Unspecified mood [affective] disorder, K58.9 - Irritable bowel syndrome without diarrhea, M45.9 - Ankylosing spondylitis of unspecified sites in spine, Z91.09 - Other allergy status, other than to drugs and biological substances Medications: Refilled tramadol 50 mg PO DAILY 90 tabs 0RF 90 days G44.89 - Other headache syndrome, K58.9 - Irritable bowel syndrome without diarrhea, M45.9 - Ankylosing spondylitis of unspecified sites in spine, R52 - Pain, unspecified Coding Level of Care Code Est Pt Level 4 (04896) Diagnoses Mood disorder F39 Ankylosing spondylitis of lumbar region M45.6 Ankylosing spondylitis location: lumbar region Morbid obesity due to excess calories E66.01 Environmental allergies Z91.09 Irritable bowel syndrome with both constipation and diarrhea K58.2 Irritable bowel syndrome type: with both diarrhea and constipation Mycotic toenails B35.1 Additional Codes JESSICA-7 Assessment Billing - JESSICA-7 Assessment Tool: JESSICA-7 Assessment [id number] ([id number])
== END 2023-04-20 09:51 | disposition home or self-care (01) ==
PROVIDERS: PCP Internal Medicine; Visit Provider Internal Medicine
DX: M45.6 Ankylosing spondylitis lumbar region (principal); F39 Unspecified mood [affective] disorder; E66.01 Morbid (severe) obesity due to excess calories; Z68.42 Body mass index [BMI] 45.0-49.9, adult; Z91.09 Other allergy status, other than to drugs and biological substances; K58.2 Mixed irritable bowel syndrome; B35.1 Tinea unguium
CPT/HCPCS: 99214

== ENCOUNTER 2023-04-23 11:33 | Outpatient (REF) | payer BC, OTHER, SELFPAY ==
[2023-04-23 13:39] LABS: MANUAL DIFF FLAG NO
[2023-04-23 13:47] LABS: Basophils Percent Auto 0.5 % (0-2); Eosinophils Absolute Auto 0.2 X10*3/uL (0.0-0.4); Eosinophils Percent Auto 2.5 % (0-4); Hematocrit 43.4 % (37.0-47.0); Hemoglobin 14.9 g/dl (12.0-16.0); Imm Gran Abs Auto 0.01 X10*3/uL (0.00-0.03); Imm Gran Pct Auto 0.1 % (0.0-0.4); Lymphocytes Absolute Auto 3.5 X10*3/uL (1.2-4.9); Lymphocytes Percent Auto 41.7 % (20-40); Mean Corpuscular HGB Conc 34.3 g/dl (31.0-35.0); Mean Corpuscular Hemoglobin 30.8 pg (27.0-33.0); Mean Corpuscular Volume 89.7 fL (80.0-98.0); Mean Platelet Volume 8.9 fL (9.4-12.3); Monocytes Absolute Auto 0.5 X10*3/uL (0.1-1.2); Monocytes Percent Auto 6.4 % (2-11); Neutrophils Absolute Auto 4.1 x10*3/uL (2.0-8.3); Neutrophils Percent Auto 48.8 % (45-73); Platelet Count 323 X10*3/uL (160-400); Red Blood Count 4.84 X10*6/uL (4.20-5.50); Red Cell Distribution Width 12.4 % (11.0-16.0); White Blood Count 8.4 X10*3/uL (4.8-10.8)
[2023-04-23 13:54] LABS: Alanine Aminotransferase 24 U/L (0-31); Albumin Level 4.3 g/dL (3.5-5.0); Alkaline Phosphatase 39 U/L (39-117); Anion Gap 12 (12-20); Aspartate Amino Transferase 23 U/L (5-31); Bilirubin Total 0.5 mg/dL (0.0-1.0); Blood Urea Nitrogen 7 mg/dL (9-16); Calcium 9.7 mg/dL (8.4-10.2); Carbon Dioxide 25 mmol/L (22-29); Chloride 107 mmol/L (96-108); Estimated Glomerular Filt Rate > 60; Glucose Random 90 mg/dL (60-115); Potassium 4.4 mmol/L (3.3-5.1); Sodium 140 mmol/L (135-145); Total Protein 7.7 g/dL (6.5-8.0)
== END 2023-04-23 11:34 | disposition home or self-care (01) ==
LOC: HO.HMGCLDS 11:33
PROVIDERS: PCP Internal Medicine; Visit Provider Internal Medicine
DX: F39 Unspecified mood [affective] disorder (principal); E66.09 Other obesity due to excess calories; M45.9 Ankylosing spondylitis of unspecified sites in spine; E66.01 Morbid (severe) obesity due to excess calories; K58.9 Irritable bowel syndrome, unspecified; Z91.09 Other allergy status, other than to drugs and biological substances
CPT/HCPCS: 36415; 80053; 85025

== ENCOUNTER 2023-05-25 07:52 | Outpatient (AMB) | payer BC, MEDICAID, SELFPAY ==
--- NOTE | 2023-05-25 08:06 | MHC.OFFVIS ---
Intake Vital Signs 05/25/23 08:09 Height 5 ft Weight 229 lb 4.492 oz BMI 44.8 BP 127/73 Blood Pressure Location Lt brachial Position Sitting Pulse 75 Intake Visit Reasons: 6 week follow up Intake Note: Kayley presents in the office as a 6 week follow up. CC: She states that everything seems to be feeling better! Allergies naproxen Allergy (Mild, Verified 05/25/23 10:28) hives etanercept [Enbrel] Adverse Reaction (Mild, Verified 05/25/23 10:28) injection site reaction methotrexate Adverse Reaction (Mild, Verified 05/25/23 10:28) rash, hairloss tizanidine Adverse Reaction (Mild, Verified 05/25/23 10:28) Unknown HPI 6 week follow up HPI Details She felt better with the cholestyramine, but with her extensive meds she had trouble getting the bid doses in. But it did help with the bloating. [facility] will [facility] as his plays better with other meds. She will have occasional CIC,so creon may be a better player. She does have incomplete evac adn gas trapping. Try bentyl bid on day off. Stop cholestyramine for now. ROV 6 weeks. Assessment & Plan (1) Diarrhea: Code(s): R19.7 - Diarrhea, unspecified Medications: New nbcuab-gdfhdabk-of ylase 36,000-114,0 00- 180,000 unit ( Creon) administ er with meals and/ or snacks 2 caps PO BID 60 caps 6RF R19.7 - Diarrhea, unspecified TODAY'S VISIT She is doing fairly well with the meds except for trouble with the dosing schedule of the Creon. This prompts me to educate her that she can take 2 capsules in the morning and 2 caps at night if she wishes because study seem to indicate that this works well. She also continues on her dicyclomine with good control of her cramping. Return office visit in 6 months [facility] Medical History Pain management Headache syndrome Encounter for control pills maintenance PTSD (post-traumatic stress disorder) Difficulty sleeping Chronic pain Anxiety, generalized Depression, major, recurrent Ankylosing spondylitis Surgical History History of carpal tunnel surgery of right wrist History of wisdom tooth extraction Hx of cholecystectomy Hx of colonoscopy (~2011) Family History Father Obesity HTN (hypertension) Mother Asthma Obesity HTN (hypertension) Atrial fibrillation Stomach problems Brother No problems noted. 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 Cognitive needs: No Hearing needs: No Vision needs: Yes Review of Systems Const Denies fatigue, Denies fever(s), Denies night sweats, Denies poor appetite and Denies weight loss ENT Reports Normal hearing present, Denies dental pain, Denies dysphagia, Denies hearing loss, Denies mouth pain, Denies odynophagia, Denies throat swelling, Denies tongue swelling and Reports other (Dentition adequate) Card Reports no additional complaints Resp Reports no additional complaints GI Denies abdominal pain, Denies melena, Reports bloating, Denies hematochezia, Denies constipation, Denies GI cramping, Denies dysphagia, Denies excessive flatus, Denies early satiety, Reports heartburn, Denies diarrhea, Denies nausea, Denies odynophagia, Denies vomiting and Denies hematemesis Skin/Breast Denies pruritus, Denies lesions, Denies rash and Denies jaundice Neuro Reports Normal hearing present and Denies Abnormal speech present Endo Denies fatigue Aller/Immun Denies throat swelling and Denies tongue swelling Physical Exam Vital Signs: Last Vital Signs Pulse 75 05/25/23 08:09 BP 127/73 05/25/23 08:09 BMI result Body Mass Index 44.8 Const General: cooperative, no acute distress, well developed and well groomed Nutritional Appearance: well nourished and obese Orientation/consciousness: oriented to person, oriented to place and oriented to time Limitations: No language barrier HEENT Head: Yes normocephalic and Yes atraumatic Eyes General: appearance normal, both eyes and all related structures Pupils: Equal, round and reactive pupils present Neck Neck: Yes normal visual inspection and Yes no lymphadenopathy Thyroid: Thyroid normal Resp Effort & Inspection: normal respiratory effort and able to speak in complete sentences Auscultation: clear to auscultation bilaterally Cardio Rate: regular rate Rhythm: regular rhythm Heart sounds: Normal, physiologic split S2 sound present Peripheral pulses: radial pulses present and posterior tibial pulses present GI Inspection: No distended, Yes Abdominal panniculus present and Yes obesity Palpation (GI): Soft to palpation, nontender, no guarding, not rigid and No hepatosplenomegaly present Percussion: Yes normal to percussion Auscultation: normal bowel sounds Rectal Exam - Female: deferred Skin General skin exam: no rashes or lesions noted, turgor normal, skin not dry, no jaundice, No spider nevi and no striae Rashes: no rashes Nails: normal Neuro General: oriented to person, oriented to place and oriented to time Cranial nerves: Yes Equal, round and reactive pupils present and Yes Normal hearing present Speech: No Abnormal speech present Extrem General: Yes normal to inspection, No clubbing, No cyanosis and No edema Psych Appearance: grossly normal and well kempt Mental Status: mental status grossly normal Speech and movement: Normal speech and movement present Affect: normal affect Attitude: cooperative Thought process: Normal thought process present and not confabulating Thought content: Normal thought content present Insight: Fair insight present (Psych) Judgement: Fair judgement present (Psych) Assessment & Plan Assessment & Plan (1) Diarrhea: Code(s): R19.7 - Diarrhea, unspecified (2) Bloating symptom: Code(s): R14.0 - Abdominal distension (gaseous) (3) IBS (irritable bowel syndrome): Code(s): K58.9 - Irritable bowel syndrome without diarrhea Qualifiers: Irritable bowel syndrome type: with both diarrhea and constipation Qualified Code(s): K58.2 - Mixed irritable bowel syndrome Plan She is doing fairly well with the meds except for trouble with the dosing schedule of the Creon. This prompts me to educate her that she can take 2 capsules in the morning and 2 caps at night if she wishes because study seem to indicate that this works well. She also continues on her dicyclomine with good control of her cramping. Return office visit in 6 months Medications: Changed From wkjfhr-qloljpgl-zbblfzs 36,000-114,000- 180,000 unit administer with meals and/or snacks 2 caps PO BID 60 caps 6RF R19.7 - Diarrhea, unspecified To yxdyon-dqnmuvtu-rmwklgh 36,000-114,000- 180,000 unit (Creon) administer with meals and/or snacks 2 caps PO BID 60 caps 6RF R19.7 - Diarrhea, unspecified Refilled dicyclomine 20 mg (2 x 10 mg) PO QID 240 caps 6RF 30 days K58.9 - Irritable bowel syndrome without diarrhea, R10.9 - Unspecified abdominal pain Coding Level of Care Code Est Pt Level 3 (41110) Diagnoses Diarrhea R19.7 Bloating symptom R14.0 Irritable bowel syndrome with both constipation and diarrhea K58.2 Irritable bowel syndrome type: with both diarrhea and constipation
[2023-05-25 08:09] VITALS: BP 127/73; PULSE 75; BMI 44.8
== END 2023-05-25 08:48 | disposition home or self-care (01) ==
PROVIDERS: PCP Internal Medicine; Referring Provider Internal Medicine; Visit Provider Nurse Practitioner
DX: R19.7 Diarrhea, unspecified (principal); R14.0 Abdominal distension (gaseous); K58.2 Mixed irritable bowel syndrome
CPT/HCPCS: 99213

== ENCOUNTER → 2023-05-25 07:52 | Outpatient (BNVA) | payer BC, MEDICAID, SELFPAY | PROVIDERS: PCP Internal Medicine; Visit Provider Nurse Practitioner ==

== ENCOUNTER 2023-05-25 10:23 | Outpatient (AMB) | payer BC, OTHER, SELFPAY ==
--- NOTE | 2023-05-25 10:27 | MHC.PC.OV ---
Vital Signs 05/25/23 10:28 Height 5 ft Weight 229 lb BMI 44.7 BP 122/80 Blood Pressure Location Rt brachial Position Sitting Pulse 76 Pulse Source Pulse Oximeter Pulse Oximetry (%) 99 Oxygen Delivery Method Room Air Intake Visit Reasons: Follow Up~ Allergies naproxen Allergy (Mild, Verified 05/25/23 10:28) hives etanercept [Enbrel] Adverse Reaction (Mild, Verified 05/25/23 10:28) injection site reaction methotrexate Adverse Reaction (Mild, Verified 05/25/23 10:28) rash, hairloss tizanidine Adverse Reaction (Mild, Verified 05/25/23 10:28) Unknown Medication List - Last Reconciled 05/25/23 by Jah Rodríguez MD adalimumab (Humira) 40 mg subcut QWEEK cetirizine 10 mg PO DAILY 90 days clotrimazole-betamethasone 1-0.05 % 1 appl topical ONCE 30 days dicyclomine 20 mg (2 x 10 mg) PO QID 30 days L norgest/e.estradiol-e.estrad 0.15 mg-30 mcg (84)/10 mcg (7) 1 tab PO DAILY lamotrigine 200 mg PO DAILY lamotrigine 25 mg PO DAILY twzmhy-waezkqiz-yecwtqz 36,000-114,000- 180,000 unit (Creon) 2 caps PO BID methylprednisolone 4 mg PO DAILY PRN montelukast 10 mg PO DAILY 90 days phentermine 15 mg PO DAILY pregabalin 150 mg PO BID propranolol 20 mg PO BID PRN 90 days tramadol 50 mg PO DAILY 90 days Tobacco use date assessed: 05/25/23 Dental Screening Dental Screen Date: 05/25/23 HPI Follow Up~ HPI Details Patient is a 32-year-old female Currently she is taking phentermine 15 mg as a weight loss medication and has managed to lose weight since last visit she was 236 and now she is 229 lb Patient is tolerating medication no side effects no shortness a breath no chest pains no nausea vomiting diarrhea. Patient has ankylosing spondylitis and is seeing Dr. Haskins Rheumatology at [facility] she is taking Humira, and lamotrigine Patient is on tramadol 50 mg daily for lower back pain .? Terminal is through PCP office Abuse treatment is through Gastroenterology Her other medications are propranolol for anxiety through Psychiatry Montelukast for allergies Lamotrigine through Psychiatry Dicyclomine for IBS Cetirizine for allergies She has appointment next month for physical exam. I have sent 30 days of phentermine patient will call me when she is due for refill [facility] Medical History Pain management Headache syndrome Encounter for control pills maintenance PTSD (post-traumatic stress disorder) Difficulty sleeping Chronic pain Anxiety, generalized Depression, major, recurrent Ankylosing spondylitis Surgical History History of carpal tunnel surgery of right wrist History of wisdom tooth extraction Hx of cholecystectomy Hx of colonoscopy (~2011) Family History Father Obesity HTN (hypertension) Mother Asthma Obesity HTN (hypertension) Atrial fibrillation Stomach problems Brother No problems noted. 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 1. Little interest or pleasure in doing things: several days 2. Feeling down, depressed, or hopeless: not at all 3. Trouble falling or staying asleep, or sleeping too much: nearly every day 4. Feeling tired or having little energy: nearly every day 5. Poor appetite or overeating: more than half the days 6. Feeling bad about yourself - or that you are a failure or have let yourself or your family down: several days 7. Trouble concentrating on things, such as reading the newspaper or watching television: more than half the days 8. Moving or speaking so slowly that other people could have noticed. Or the opposite - being so fidgety or restless that you have been moving around a lot more than usual: more than half the days 9. Thoughts that you would be better off or of hurting yourself in some way: not at all Total score: 14 Depression Screening Interpretation: Positive Depression Screening Follow-up: Existing condition and In treatment Depression Screening Done: Yes Source: Developed by Drs. Rosas Ravi, Nelly Jacobs, Corey Wallace and colleagues, with an educational parveen from [employer]. Thrive Questionnaire Date Thrive assessed: 05/25/23 I am a: Patient What is your living situation today?: I have a steady place to live Within the past 12 months, did the food you bought not last and you didn't have the money to get more?: Never true Within the past 12 months, did you worry whether your food would run out before you got money to buy more?: Never true Do you have trouble paying for medicines?: No Do you have trouble getting transportation to medical appointments?: No Do you have trouble paying your heating and electricity bill?: No Do you have trouble taking care of your child, family member or friend?: No Do you have trouble with day-to-day activities such as bathing, preparing meals, shopping, managing finances, etc.?: No Are you currently unemployed and looking for a job?: No Are you interested in more education?: No Please select the resources that you would like help with: None Currently or been in a relationship where the following occur: no concerns reported AUDIT C Alcohol Use Questionnaire (AUDIT-C) 1. How often do you have a drink containing alcohol?: Monthly or less 2. How many drinks containing alcohol do you have on a typical day when you are drinking?: 1 or 2 3. How often do you have six or more drinks on one occasion?: Never Total Score: 1 Score Reviewed/Action Taken: No JESSICA-7 AMB Questionnaire JESSICA-7 Date JESSICA - 7 assessed: 05/25/23 Feeling nervous, anxious, or on edge: 1 = Several days Not being able to stop or control worryin = Several days Worrying too much about different things: 1 = Several days Trouble relaxin = Several days Being so restless that it is hard to sit still: 2 = More than half the days Becoming easily annoyed or irritable: 2 = More than half the days Feeling afraid as if something awful might happen: 0 = Not at all Total JESSICA-7 score (0-4 normal; 5-9 mild; 10-14 moderate; 15-21 severe): 8 Source: Developed by Drs. Rosas Ravi, Nelly Jacobs, Corey Wallace and colleagues, with an educational parveen from [employer]. JESSICA-7 Assessment Billing JESSICA-7 Assessment Tool: JESSICA-7 Assessment 47139 Review of Systems Const Denies chills and Denies fever(s) ENT Denies epistaxis and Denies nasal discharge Card Denies chest pain Resp Denies chest congestion, Denies cough and Denies hemoptysis GI Denies diarrhea and Denies nausea Skin/Breast Denies rash Neuro Reports no additional complaints Psych Reports no additional complaints Endo Reports no additional complaints Physical exam (Primary Care) Vital Signs: Last Vital Signs Pulse 76 05/25/23 10:28 BP 122/80 05/25/23 10:28 Pulse Ox 99 05/25/23 10:28 Oxygen Delivery Method Room Air 05/25/23 10:28 BMI result Body Mass Index 44.7 Tobacco/Smoking Status: Tobacco use Status Tobacco use date assessed 05/25/23 05/25/23 10:29 Patient Tobacco Use Status Former Tobacco user 05/25/23 10:29 e-Cigarette/Vaping Use Former Use 05/25/23 10:34 Depression Screening Interpretation: Positive Depression Screening Follow-up: Existing condition and In treatment Thrive Assessment: Date of Thrive Assessment Date Thrive assessed 05/25/23 05/25/23 10:34 Currently or been in a relationship where the following occur: no concerns reported Const General: cooperative, comfortable and no acute distress Orientation/consciousness: patient oriented x3 HENMN Head: Yes normocephalic Eyes General: appearance normal, both eyes and all related structures Neck Neck: Yes supple Resp Effort & Inspection: normal respiratory effort, no cough and no stridor Cardio Rhythm: regular rhythm Heart sounds: S1 normal heart sound present and S2 normal heart sound present Skin General skin exam: turgor normal Neuro General: patient oriented x3, tone normal and moves all extremities Extrem Right lower extremity: no edema Left lower extremity: no edema Assessment and Plan Assessment & Plan (1) Morbid obesity due to excess calories: Code(s): E66.01 - Morbid (severe) obesity due to excess calories (2) Mood disorder: Code(s): F39 - Unspecified mood [affective] disorder (3) Ankylosing spondylitis: Comment: Management through fall intern Code(s): M45.9 - Ankylosing spondylitis of unspecified sites in spine Qualifiers: Ankylosing spondylitis location: lumbar region Qualified Code(s): M45.6 - Ankylosing spondylitis lumbar region (4) Environmental allergies: Code(s): Z91.09 - Other allergy status, other than to drugs and biological substances (5) IBS (irritable bowel syndrome): Code(s): K58.9 - Irritable bowel syndrome without diarrhea Qualifiers: Irritable bowel syndrome type: with both diarrhea and constipation Qualified Code(s): K58.2 - Mixed irritable bowel syndrome (6) Chronic pain: Code(s): G89.29 - Other chronic pain Qualifiers: Chronic pain type: chronic pain syndrome Qualified Code(s): G89.4 - Chronic pain syndrome (7) Depression, major, recurrent: Comment: Management through Psychiatry Code(s): F33.9 - Major depressive disorder, recurrent, unspecified Qualifiers: Active/Remission status: in partial remission Qualified Code(s): F33.41 - Major depressive disorder, recurrent, in partial remission (8) Anxiety, generalized: Comment: Management through Psychiatry Code(s): F41.1 - Generalized anxiety disorder (9) Pain management: Code(s): R52 - Pain, unspecified (10) PTSD (post-traumatic stress disorder): Comment: Management through Psychiatry Code(s): F43.10 - Post-traumatic stress disorder, unspecified Plan Patient is a 32-year-old female Currently she is taking phentermine 15 mg as a weight loss medication and has managed to lose weight since last visit she was 236 and now she is 229 lb Patient is tolerating medication no side effects no shortness a breath no chest pains no nausea vomiting diarrhea. Patient has ankylosing spondylitis and is seeing Dr. Haskins Rheumatology at [facility] she is taking Humira, and lamotrigine Patient is on tramadol 50 mg daily for lower back pain .? Terminal is through PCP office Abuse treatment is through Gastroenterology Her other medications are propranolol for anxiety through Psychiatry Montelukast for allergies Lamotrigine through Psychiatry Dicyclomine for IBS Cetirizine for allergies She has appointment next month for physical exam. I have sent 30 days of phentermine patient will call me when she is due for refill Medications: Refilled phentermine must administer 2 hours after breakfast 15 mg PO DAILY 30 caps 0RF montelukast 10 mg PO DAILY 90 days 30 tabs 0RF Z91.09 - Other allergy status, other than to drugs and biological substances montelukast 10 mg PO DAILY 90 days 30 tabs 0RF Z91.09 - Other allergy status, other than to drugs and biological substances Coding Level of Care Code Est Pt Level 4 (93075) Diagnoses Morbid obesity due to excess calories E66.01 Mood disorder F39 Ankylosing spondylitis of lumbar region M45.6 Ankylosing spondylitis location: lumbar region Environmental allergies Z91.09 Irritable bowel syndrome with both constipation and diarrhea K58.2 Irritable bowel syndrome type: with both diarrhea and constipation Chronic pain syndrome G89.4 Chronic pain type: chronic pain syndrome Recurrent major depressive disorder, in partial remission F33.41 Active/Remission status: in partial remission Anxiety, generalized F41.1 Pain management R52 PTSD (post-traumatic stress disorder) F43.10 Additional Codes JESSICA-7 Assessment Billing - JESSICA-7 Assessment Tool: JESSICA-7 Assessment 07995 ([id number])
[2023-05-25 10:28] VITALS: BP 122/80; PULSE 76; O2SAT 99; BMI 44.7
== END 2023-05-25 12:18 | disposition home or self-care (01) ==
PROVIDERS: PCP Internal Medicine; Visit Provider Internal Medicine
DX: M45.6 Ankylosing spondylitis lumbar region (principal); E66.01 Morbid (severe) obesity due to excess calories; F39 Unspecified mood [affective] disorder; Z68.41 Body mass index [BMI] 40.0-44.9, adult; F33.41 Major depressive disorder, recurrent, in partial remission; Z91.09 Other allergy status, other than to drugs and biological substances; K58.2 Mixed irritable bowel syndrome; G89.4 Chronic pain syndrome; F41.1 Generalized anxiety disorder; R52 Pain, unspecified; F43.10 Post-traumatic stress disorder, unspecified
CPT/HCPCS: 99214

== ENCOUNTER 2023-06-25 10:00 | Outpatient (AMB) | payer BC, OTHER, SELFPAY ==
[2023-06-25 10:48] VITALS: BP 122/80; PULSE 80; TEMP 36.7; O2SAT 98
--- NOTE | 2023-06-25 10:48 | AM.OFFWIN_ITS ---
Intake Vital Signs 06/25/23 10:48 Height 5 ft BMI Reason not done Patient refused/unable BP 122/80 Blood Pressure Location Rt brachial Position Sitting Pulse 80 Pulse Source Pulse Oximeter Temp 98.0 F Temp Source Oral Pulse Oximetry (%) 98 Oxygen Delivery Method Room Air Intake Visit Reasons: EP congestion runny nose ears/headache [id number] Intake Note: pt is here for c.o congestion, runny nose, headache, sore throat Patient Tobacco Use Status: Former Tobacco user Quit Date: 2018 Allergies naproxen Allergy (Mild, Verified 06/25/23 10:49) hives etanercept [Enbrel] Adverse Reaction (Mild, Verified 06/25/23 10:49) injection site reaction methotrexate Adverse Reaction (Mild, Verified 06/25/23 10:49) rash, hairloss tizanidine Adverse Reaction (Mild, Verified 06/25/23 10:49) Unknown Do you need a note to return to daycare/school/sports/work: Yes HPI HPI Comments History of Present Illness Details This is a 32-year-old female who presents to the office complaining of viral URI symptoms x2 days. She reports mild nasal/sinus congestion, rhinorrhea, sore throat, and headache. She denies any fevers. 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 She recently tested positive for COVID-19 approximately 3 weeks ago. She states that those symptoms actually resolved with she then started to develop viral URI symptoms again yesterday. [facility] Medical History Pain management Headache syndrome Encounter for control pills maintenance PTSD (post-traumatic stress disorder) Difficulty sleeping Chronic pain Anxiety, generalized Depression, major, recurrent Ankylosing spondylitis Surgical History History of carpal tunnel surgery of right wrist History of wisdom tooth extraction Hx of cholecystectomy Hx of colonoscopy (~2011) Family History Father Obesity HTN (hypertension) Mother Asthma Obesity HTN (hypertension) Atrial fibrillation Stomach problems Brother No problems noted. 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 Cognitive needs: No Hearing needs: No Vision needs: Yes Review of Systems Const All systems reviewed & are unremarkable except as noted in HPI and below Reports no additional complaints Eyes Reports no additional complaints ENT Reports no additional complaints Card Reports no additional complaints Resp Reports no additional complaints GI Reports no additional complaints Reports no additional complaints Musc Reports no additional complaints Skin/Breast Reports system reviewed and no additional complaints, except as documented Neuro Reports no additional complaints Psych Reports no additional complaints Endo Reports no additional complaints Abhishek/Lymph Reports no additional complaints Aller/Immun Reports no additional complaints Physical Exam Vital Signs: Last Vital Signs Temp 98.0 F 06/25/23 10:48 Pulse 80 06/25/23 10:48 BP 122/80 06/25/23 10:48 Pulse Ox 98 06/25/23 10:48 Oxygen Delivery Method Room Air 06/25/23 10:48 Const Other: Vital signs reviewed. Constitutional: Non-toxic appearing. No acute distress. Well-developed and well-nourished. HEENT: Normocephalic and atraumatic. Mild effusion behind bilateral tympanic membranes with tympanic membranes are not erythematous or edematous. She has mild posterior pharyngeal erythema without exudates, swelling, or masses. Skin: Warm and dry. No rashes or lesions noted. Neck: Full and painless range of motion. No cervical lymphadenopathy. Cardio: Regular rate and rhythm. No murmurs, gallops, or rubs. No lower extremity edema. No JVD. Pulmonary: No respiratory distress. No accessory muscle usage. Clear to auscultation bilaterally without wheezing, crackles, or rhonchi. Gastrointestinal: Soft, nontender, and nondistended in all 4 quadrants. Musculoskeletal: Normal range of motion in joints throughout the body. No deformity or other signs of injury. Neuro: Alert and oriented x4. Cranial nerves 2-12 grossly intact. No focal deficits appreciated. Psych: Normal mood and affect. Assessment & Plan Assessment & Plan (1) Viral URI: Code(s): J06.9 - Acute upper respiratory infection, unspecified Plan: This is a 32-year-old female who presented to the office complaining of recurrent viral URI symptoms x2 days. On physical examination, she has a small amount of fluid behind bilateral tympanic membranes as well as mild posterior pharyngeal erythema but her physical exam is otherwise benign and her vital signs are stable. Patient was reassured that this is likely a viral illness and this is likely self-limiting. Recommended symptomatic management including rest, increased fluids, advil/tylenol for pain/fever, and over the counter throat lozenges/decongestants. COVID/flu/RSV sent. Patient advised to follow up here or go to the emergency room for worsening/persistent symptoms. Patient verbalized understanding and is agreeable with the plan. Orders: Orders SARS-CoV2/FLU/RSV Today R09.89 - Other specified symptoms and signs involving the circulatory and respiratory systems Coding Level of Care Code Est Pt Level 3 (71790) Diagnoses Viral URI J06.9
== END 2023-06-25 12:24 | disposition home or self-care (01) ==
PROVIDERS: PCP Internal Medicine; Visit Provider Physician Assistant Medical
DX: J06.9 Acute upper respiratory infection, unspecified (principal)
CPT/HCPCS: 99213

== ENCOUNTER 2023-06-25 13:43 | Outpatient (REF) | payer BC, OTHER, SELFPAY ==
[2023-06-25 14:44] LABS: Influenza A PCR NEGATIVE (Negative); Influenza B PCR NEGATIVE (Negative); Resp Syncy Virus RNA Qual PCR NEGATIVE (Negative); SARS COV2 PCR INHOUSE POSITIVE (Negative)
== END 2023-06-25 13:44 | disposition home or self-care (01) ==
LOC: HO.LNP 13:43
PROVIDERS: Visit Provider Physician Assistant Medical
DX: Z11.52 Encounter for screening for COVID-19 (principal); Z20.822 Contact with and (suspected) exposure to COVID-19; R09.89 Other specified symptoms and signs involving the circulatory and respiratory systems
CPT/HCPCS: 0241U

== ENCOUNTER 2023-07-19 08:51 | Outpatient (AMB) | payer BC, SELFPAY ==
[2023-07-19 08:54] VITALS: BP 126/84; PULSE 91; O2SAT 99; BMI 43.2
--- NOTE | 2023-07-19 08:54 | MHC.PC.OV ---
Vital Signs 07/19/23 08:54 Height 5 ft Weight 221 lb BMI 43.2 BP 126/84 Blood Pressure Location Rt brachial Position Sitting Pulse 91 Pulse Source Pulse Oximeter Pulse Oximetry (%) 99 Oxygen Delivery Method Room Air Intake Visit Reasons: PE Allergies naproxen Allergy (Mild, Verified 07/19/23 08:56) hives etanercept [Enbrel] Adverse Reaction (Mild, Verified 07/19/23 08:56) injection site reaction methotrexate Adverse Reaction (Mild, Verified 07/19/23 08:56) rash, hairloss tizanidine Adverse Reaction (Mild, Verified 07/19/23 08:56) Unknown Medication List - Last Reconciled 07/19/23 by Jah Rodríguez MD adalimumab (Humira) 40 mg subcut QWEEK cetirizine 10 mg PO DAILY 90 days clotrimazole-betamethasone 1-0.05 % 1 appl topical ONCE 30 days dicyclomine 20 mg (2 x 10 mg) PO QID 30 days L norgest/e.estradiol-e.estrad 0.15 mg-30 mcg (84)/10 mcg (7) 1 tab PO DAILY lamotrigine 200 mg PO DAILY lamotrigine 25 mg PO DAILY unbpqy-hmglyekl-kcyoltc 36,000-114,000- 180,000 unit (Creon) 2 caps PO BID methylprednisolone 4 mg PO DAILY PRN montelukast 10 mg PO DAILY 90 days phentermine 15 mg PO DAILY pregabalin 150 mg PO BID propranolol 20 mg PO BID PRN 90 days tramadol 50 mg PO DAILY 90 days Tobacco use date assessed: 07/19/23 Dental Screening Dental Screen Date: 07/19/23 Did you have a dental visit in the last 12 months?: No Did you have a dental problem in the last 6 months where you did not have access to dental care?: No Was dental information given to patient?: Patient has dentist HPI PE HPI Details Patient is a 33-year-old female came in today for physical examination Patient says that she has noticed she is getting a more acne and also excessive facial hair She would like hormone checked Patient has appointment with OBPOLLYN coming up, she will talk about PCOS Currently she is taking phentermine 15 mg as a weight loss medication patient is tolerating medication She is gradually losing weight Patient has ankylosing spondylitis and is seeing Dr. Haskins Rheumatology at [facility] she is taking Humira, and lamotrigine Patient is on tramadol 50 mg daily for lower back pain .? Terminal is through PCP office Her other medications are propranolol for anxiety through Psychiatry Montelukast for allergies Lamotrigine through Psychiatry Dicyclomine for IBS through Gastroenterology Cetirizine for allergies Patient says that her allergies are not controlled even though she is taking 2 medications she constantly having clear nasal discharge She would like to see an door core assembler for allergy testing Follow-up 4 weeks for weight management 1 year for physical exam [facility] Medical History Pain management Headache syndrome Encounter for control pills maintenance PTSD (post-traumatic stress disorder) Difficulty sleeping Chronic pain Anxiety, generalized Depression, major, recurrent Ankylosing spondylitis Surgical History History of carpal tunnel surgery of right wrist History of wisdom tooth extraction Hx of cholecystectomy Hx of colonoscopy (~2011) Family History Father Obesity HTN (hypertension) Mother Asthma Obesity HTN (hypertension) Atrial fibrillation Stomach problems Brother No problems noted. 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 1. Little interest or pleasure in doing things: several days 2. Feeling down, depressed, or hopeless: not at all 3. Trouble falling or staying asleep, or sleeping too much: nearly every day 4. Feeling tired or having little energy: nearly every day 5. Poor appetite or overeating: more than half the days 6. Feeling bad about yourself - or that you are a failure or have let yourself or your family down: not at all 7. Trouble concentrating on things, such as reading the newspaper or watching television: several days 8. Moving or speaking so slowly that other people could have noticed. Or the opposite - being so fidgety or restless that you have been moving around a lot more than usual: several days 9. Thoughts that you would be better off or of hurting yourself in some way: not at all Total score: 11 Depression Screening Interpretation: Positive Depression Screening Follow-up: Existing condition and In treatment Depression Screening Done: Yes 83550 - PHQ-9 Billing: Yes Source: Developed by Drs. Rosas Ravi, Nelly Jacobs, Corey Wallace and colleagues, with an educational parveen from [employer] Reviewed. Thrive Questionnaire Date Thrive assessed: 07/19/23 I am a: Patient What is your living situation today?: I have a steady place to live Within the past 12 months, did the food you bought not last and you didn't have the money to get more?: Never true Within the past 12 months, did you worry whether your food would run out before you got money to buy more?: Never true Do you have trouble paying for medicines?: No Do you have trouble getting transportation to medical appointments?: No Do you have trouble paying your heating and electricity bill?: No Do you have trouble taking care of your child, family member or friend?: No Do you have trouble with day-to-day activities such as bathing, preparing meals, shopping, managing finances, etc.?: No Are you currently unemployed and looking for a job?: No Are you interested in more education?: No Please select the resources that you would like help with: None Currently or been in a relationship where the following occur: no concerns reported THRIVE Score: 0 AUDIT C Alcohol Use Questionnaire (AUDIT-C) 1. How often do you have a drink containing alcohol?: Monthly or less 2. How many drinks containing alcohol do you have on a typical day when you are drinking?: 1 or 2 3. How often do you have six or more drinks on one occasion?: Never Total Score: 1 Score Reviewed/Action Taken: Yes JESSICA-7 AMB Questionnaire JESSICA-7 Date JESSIAC - 7 assessed: 07/19/23 Feeling nervous, anxious, or on edge: 1 = Several days Not being able to stop or control worryin = Several days Worrying too much about different things: 1 = Several days Trouble relaxin = More than half the days Being so restless that it is hard to sit still: 2 = More than half the days Becoming easily annoyed or irritable: 1 = Several days Feeling afraid as if something awful might happen: 0 = Not at all Total JESSICA-7 score (0-4 normal; 5-9 mild; 10-14 moderate; 15-21 severe): 8 Source: Developed by Drs. Rosas Ravi, Nelly Jacobs, Corey Wallace and colleagues, with an educational parveen from [employer] Reviewed. JESSICA-7 Assessment Billing JESSICA-7 Assessment Tool: JESSICA-7 Assessment 78243 (In treatment) Review of Systems Const Denies chills, Denies fever(s) and Denies headache(s) Eyes Denies blurry vision ENT Denies headache(s), Denies nasal discharge, Denies nasal obstruction, Denies odynophagia and Denies sinus pain Card Denies chest pain at rest and Denies chest pain with activity Resp Denies cough and Denies hemoptysis GI Denies odynophagia, Denies vomiting and Denies hematemesis Reports as per HPI Musc Denies abnormal gait Skin/Breast Reports as per HPI Neuro Denies Neuro-related abnormal movements, Denies Abnormal speech present, Denies abnormal gait, Denies headache(s) and Denies Sensory deficit (Neuro) Psych Denies mood swings and Denies paranoia Endo Reports as per HPI Abhishek/Lymph Reports as per HPI Aller/Immun Reports as per HPI Physical exam (Primary Care) Vital Signs: Last Vital Signs Pulse 91 07/19/23 08:54 BP 126/84 07/19/23 08:54 Pulse Ox 99 07/19/23 08:54 Oxygen Delivery Method Room Air 07/19/23 08:54 BMI result Body Mass Index 43.2 Tobacco/Smoking Status: Tobacco use Status Tobacco use date assessed 07/19/23 07/19/23 08:58 Patient Tobacco Use Status Former Tobacco user 07/19/23 08:58 e-Cigarette/Vaping Use Former Use 07/19/23 08:58 PHQ-9: PHQ-9 Score PHQ-9: Total score 11 07/19/23 09:29 Depression Screening Interpretation: Positive Depression Screening Follow-up: Existing condition and In treatment Thrive Assessment: Date of Thrive Assessment Date Thrive assessed 07/19/23 07/19/23 09:29 Currently or been in a relationship where the following occur: no concerns reported Const General: cooperative, comfortable and no acute distress Orientation/consciousness: patient oriented x3 HENMT Head: Yes normocephalic and Yes atraumatic Eyes General: appearance normal, both eyes and all related structures Pupils: Equal, round and reactive pupils present EOM: EOMs intact bilaterally Neck Neck: Yes supple and No lymphadenopathy Thyroid: Thyroid normal Lymphatic: no lymphadenopathy noted Resp Effort & Inspection: normal respiratory effort and able to speak in complete sentences Auscultation: clear to auscultation bilaterally Cardio Heart sounds: S1 normal heart sound present and S2 normal heart sound present GI Palpation (GI): Soft to palpation and nontender Auscultation: normal bowel sounds General: Yes no CVA tenderness Back/Spine/Pelvis Back: no CVA tenderness Skin General skin exam: elasticity normal and turgor normal Neuro General: patient oriented x3 and gait normal Cranial nerves: Yes Equal, round and reactive pupils present Speech: No Abnormal speech present Sensory Exam: No Sensory deficit (Neuro) Coordination: tandem gait normal and Romberg test negative Extrem General: Yes normal exam except as noted and No edema Assessment and Plan Assessment & Plan (1) Encounter for general adult medical examination with abnormal findings: Code(s): Z00.01 - Encounter for general adult medical examination with abnormal findings (2) Morbid obesity due to excess calories: Code(s): E66.01 - Morbid (severe) obesity due to excess calories (3) Mood disorder: Code(s): F39 - Unspecified mood [affective] disorder (4) Ankylosing spondylitis: Comment: Management through infant caregiver Code(s): M45.9 - Ankylosing spondylitis of unspecified sites in spine Qualifiers: Ankylosing spondylitis location: lumbar region Qualified Code(s): M45.6 - Ankylosing spondylitis lumbar region (5) Environmental allergies: Code(s): Z91.09 - Other allergy status, other than to drugs and biological substances (6) IBS (irritable bowel syndrome): Code(s): K58.9 - Irritable bowel syndrome without diarrhea Qualifiers: Irritable bowel syndrome type: with both diarrhea and constipation Qualified Code(s): K58.2 - Mixed irritable bowel syndrome (7) Chronic pain: Code(s): G89.29 - Other chronic pain Qualifiers: Chronic pain type: chronic pain syndrome Qualified Code(s): G89.4 - Chronic pain syndrome (8) Depression, major, recurrent: Comment: Management through Psychiatry Code(s): F33.9 - Major depressive disorder, recurrent, unspecified Qualifiers: Active/Remission status: in partial remission Qualified Code(s): F33.41 - Major depressive disorder, recurrent, in partial remission (9) Anxiety, generalized: Comment: Management through Psychiatry Code(s): F41.1 - Generalized anxiety disorder (10) Pain management: Code(s): R52 - Pain, unspecified (11) PTSD (post-traumatic stress disorder): Comment: Management through Psychiatry Code(s): F43.10 - Post-traumatic stress disorder, unspecified (12) Hirsutism: Code(s): L68.0 - Hirsutism Plan Patient is a 33-year-old female came in today for physical examination Patient says that she has noticed she is getting a more acne and also excessive facial hair She would like hormone checked Patient has appointment with OBKAYE coming up, she will talk about PCOS Currently she is taking phentermine 15 mg as a weight loss medication patient is tolerating medication She is gradually losing weight Patient has ankylosing spondylitis and is seeing Dr. Haskins Rheumatology at [facility] she is taking Humira, and lamotrigine Patient is on tramadol 50 mg daily for lower back pain .? Terminal is through PCP office Her other medications are propranolol for anxiety through Psychiatry Montelukast for allergies Lamotrigine through Psychiatry Dicyclomine for IBS through Gastroenterology Cetirizine for allergies Patient says that her allergies are not controlled even though she is taking 2 medications she constantly having clear nasal discharge She would like to see an door core assembler for allergy testing Follow-up 4 weeks for weight management 1 year for physical exam Orders: Orders Testosterone, Total Today L68.0 - Hirsutism Complete Blood Count Auto Diff Today L68.0 - Hirsutism Comprehensive Met. Panel Today L68.0 - Hirsutism 17 Hydroxyprogesterone Today E66.01 - Morbid (severe) obesity due to excess calories, F39 - Unspecified mood [affective] disorder, L68.0 - Hirsutism LDL Cholesterol Direct Today L68.0 - Hirsutism TSH reflex Free T4 Today L68.0 - Hirsutism Medications: Refilled phentermine must administer 2 hours after breakfast 15 mg PO DAILY 30 caps 0RF tramadol 50 mg PO DAILY 90 tabs 0RF 90 days G44.89 - Other headache syndrome, K58.9 - Irritable bowel syndrome without diarrhea, M45.9 - Ankylosing spondylitis of unspecified sites in spine, R52 - Pain, unspecified Coding Level of Care Code Est Pt Prev Care 18-39y(18925) Diagnoses Encounter for general adult medical examination with abnormal findings Z00.01 Morbid obesity due to excess calories E66.01 Mood disorder F39 Ankylosing spondylitis of lumbar region M45.6 Ankylosing spondylitis location: lumbar region Environmental allergies Z91.09 Irritable bowel syndrome with both constipation and diarrhea K58.2 Irritable bowel syndrome type: with both diarrhea and constipation Chronic pain syndrome G89.4 Chronic pain type: chronic pain syndrome Recurrent major depressive disorder, in partial remission F33.41 Active/Remission status: in partial remission Anxiety, generalized F41.1 Pain management R52 PTSD (post-traumatic stress disorder) F43.10 Hirsutism L68.0 Additional Codes JESSICA-7 Assessment Billing - JESSICA-7 Assessment Tool: JESSICA-7 Assessment [id number] ([id number])
== END 2023-07-19 09:25 | disposition home or self-care (01) ==
PROVIDERS: PCP Internal Medicine; Visit Provider Internal Medicine
DX: Z00.00 Encounter for general adult medical examination without abnormal findings (principal); E66.01 Morbid (severe) obesity due to excess calories; Z68.41 Body mass index [BMI] 40.0-44.9, adult; F39 Unspecified mood [affective] disorder; M45.6 Ankylosing spondylitis lumbar region; F33.41 Major depressive disorder, recurrent, in partial remission; Z91.09 Other allergy status, other than to drugs and biological substances; K58.2 Mixed irritable bowel syndrome; G89.4 Chronic pain syndrome; F41.1 Generalized anxiety disorder; R52 Pain, unspecified; F43.10 Post-traumatic stress disorder, unspecified
CPT/HCPCS: 99395

== ENCOUNTER 2023-08-04 08:17 | Outpatient (REF) | payer BC, OTHER, SELFPAY ==
[2023-08-05 13:55] LABS: BV Int Neg Control Negative (Negative); BV Int Pos Control Positive (Positive)
== END 2023-08-04 08:18 | disposition home or self-care (01) ==
LOC: HO.LAB 08:17
PROVIDERS: PCP Internal Medicine; Visit Provider Advanced Practice Midwife
DX: N76.0 Acute vaginitis (principal); B96.89 Other specified bacterial agents as the cause of diseases classified elsewhere; N92.0 Excessive and frequent menstruation with regular cycle
CPT/HCPCS: 87480; 87510; 87660

== ENCOUNTER 2023-08-04 08:17 | Outpatient (AMB) | payer BC, OTHER, SELFPAY ==
[2023-08-04 08:19] VITALS: BP 120/80; BMI 42.6
--- NOTE | 2023-08-04 08:19 | A.OFFVIS_ITS ---
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 Doing well with concerns: vaginal odor, prone to BV, difficulty losing, facial hair growth and acne for 2 yrs. She been taking control as a teen, stopped for 2 months in 2019-she reports her menses were horrible with heavy bleeding. Currently cycling continuously. She reports she was advised from her PCP to do a workup for PCOS here, although lab order placed by PCP. Admits to migraine headaches without aura. She tries to eat healthy, no regular exercise. Currently is not sexually active. STI screening offered; she declines-neg. last yr. and admits no exposure. FH colon, breast cancer. Last pap smear 2020-neg., 2022 pt. reports in [place] was negative. She denies any contraindications to control such as: migraines with aura, history of DVT or pulmonary emboli, high blood pressure, liver disease, thrombolic disorders, Lupus, +AGATHA, breast cancer, or smoking. [facility] Medical History Pain management Headache syndrome Encounter for control pills maintenance PTSD (post-traumatic stress disorder) Difficulty sleeping Chronic pain Anxiety, generalized Depression, major, recurrent Ankylosing spondylitis Surgical History History of carpal tunnel surgery of right wrist History of wisdom tooth extraction Hx of cholecystectomy Hx of colonoscopy (~2011) Family History Father Obesity HTN (hypertension) Mother Asthma Obesity HTN (hypertension) Atrial fibrillation Stomach problems Brother No problems noted. 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 Cognitive needs: No Hearing needs: No Vision needs: Yes Female Reproductive History Menstrual control method: pills Total pregnancies: 0 Date of last pap smear: 05/23/22 (neg pap and hpv) History of abnormal pap smear: No Review of Systems Const All systems reviewed & are unremarkable except as noted in HPI and below Reports as per HPI Eyes Reports no additional complaints ENT Reports no additional complaints Card Reports no additional complaints Resp Reports no additional complaints GI Reports as per HPI and Reports no additional complaints Reports as per HPI Musc Reports no additional complaints Skin/Breast Reports as per HPI Neuro Reports no additional complaints Psych Reports no additional complaints Endo Reports no additional complaints Abhishek/Lymph Reports no additional complaints Aller/Immun Reports no additional complaints Physical Exam Vital Signs: Last Vital Signs BP 120/80 08/04/23 08:19 BMI result Body Mass Index 42.6 Const General: cooperative, healthy appearing, no acute distress, well developed and alert Orientation/consciousness: patient oriented x3 HEENT Head: Yes normal to inspection Eyes General: appearance normal, both eyes and all related structures Neck Neck: Yes normal visual inspection Thyroid: Thyroid normal Chest Chest palpation & inspection: normal inspection of the chest and other (no puckering, dimpling, peau de orange, retraction, discharge, masses) Breast/axilla inspection: normal inspection of the breasts Breast/axilla palpation: normal palpation of the breasts Resp Effort & Inspection: normal respiratory effort GI Inspection: Yes normal to inspection Palpation (GI): Soft to palpation Rectal Exam - Female: deferred General: Yes bladder normal to palpation External Female Exam: normal external appearance and normal appearance of the urethra Speculum Exam - Vagina: normal appearance of the vagina, normal palpation and normal vaginal discharge Speculum Exam - Cervix: normal appearance of the cervix and normal palpation Bimanual exam- vagina & uterus: normal bimanual exam, normal palpation, uterine size normal, bladder normal to palpation, normal palpation and non-tender Bimanual Exam- Adnexa, other: no masses Skin General skin exam: no rashes or lesions noted Rashes: no rashes Neuro General: patient oriented x3 Cognition (Neuro): normal cognition Extrem General: Yes normal to inspection Psych Attitude: cooperative Thought process: Normal thought process present Assessment & Plan Assessment & Plan (1) Encounter for well woman exam with routine gynecological exam: Code(s): Z01.419 - Encounter for gynecological examination (general) (routine) without abnormal findings (2) Heavy menses: Code(s): N92.0 - Excessive and frequent menstruation with regular cycle Qualifiers: Menorrhagia type: premenopausal Qualified Code(s): N92.4 - Excessive bleeding in the premenopausal period Plan Discussed: Current recommendations for pap smears per ASCCP guidelines. Breast awareness and periodic breast exams. Maintain a healthy lifestyle including a well balanced diet and routine exercise. Use condoms for STI and prevention. Plan ultrasound, history of heavy menstrual bleeding. Labs pre ordered by PCP. Follow up for ultrasound results and discussion of control at next visit. Patient reports she has refills for control at this time. Patient verbalizes understanding and agrees to the plan of care. She was given opportunity to ask questions and all questions were answered to the best of my ability. 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 This note is constructed using voice recognition software. While every effort has been made to ensure accuracy, load planner errors may have been included. Orders: Orders Bacterial Vaginosis Panel Today B96.89 - Other specified bacterial agents as the cause of diseases classified elsewhere, N76.0 - Acute vaginitis, N92.0 - Excessive and frequent menstruation with regular cycle US pelvic and transvaginal Today N92.0 - Excessive and frequent menstruation with regular cycle Coding Level of Care Code New Pt Prev Care 18-39yr([id number] Diagnoses Encounter for well woman exam with routine gynecological exam Z01.419 Excessive bleeding in premenopausal period N92.4 Menorrhagia type: premenopausal
== END 2023-08-04 09:08 | disposition home or self-care (01) ==
PROVIDERS: PCP Internal Medicine; Visit Provider Advanced Practice Midwife
DX: Z01.419 Encounter for gynecological examination (general) (routine) without abnormal findings (principal); N92.4 Excessive bleeding in the premenopausal period
CPT/HCPCS: 99385

== ENCOUNTER 2023-08-23 09:49 | Outpatient (REF) | payer BC, OTHER, SELFPAY ==
--- NOTE | ~2023-08-23 | US_ITS ---
EXAMINATION: US PELVIS CLINICAL INFORMATION: Excessive and frequent menses; the last menstrual period is uncertain. COMPARISON: Pelvic ultrasound dated 07/12/2015; MRI pelvis dated 06/15/2018. TECHNIQUE: Ultrasound of the pelvis is performed using both transabdominal and transvaginal transducers along with Doppler. Transvaginal imaging is performed due to inadequate visualization transabdominally. FINDINGS: Uterus: The uterus is anteverted and measures 7.1 x 3.0 x 4.7 cm. A Nabothian cyst is seen within the cervix. The double wall endometrial thickness is 6 mm. The uterus is smooth in contour and has normal myometrial echogenicity. No visible fibroid. Adnexa: Both ovaries are visualized. There is normal color flow to the adnexa. There is no ovarian torsion. There is trace left adnexal free fluid. Right ovary measures 2.6 x 2.4 x 1.6 cm, volume 5.2 mL. Physiologic follicles are noted. Left ovary measures 3.3 x 2.6 x 2.8 cm, volume 12.6 mL. There is a 2.2 cm involuting corpus luteum cyst. This requires no imaging follow-up. US/US pelvic and transvaginal IMPRESSION: 1. A nabothian cyst is seen within the cervix. 2. There is trace left adnexal free fluid.
== END 2023-08-23 09:50 | disposition home or self-care (01) ==
LOC: HO.US 09:49
PROVIDERS: PCP Internal Medicine; Visit Provider Advanced Practice Midwife
DX: N92.0 Excessive and frequent menstruation with regular cycle (principal)
CPT/HCPCS: 76830; 76856

== ENCOUNTER 2023-08-23 09:53 | Outpatient (AMB) | payer BC, OTHER, SELFPAY ==
[2023-08-23 10:11] VITALS: BP 128/86; PULSE 86; O2SAT 98; BMI 41.9
--- NOTE | 2023-08-23 10:11 | MHC.PC.OV ---
Vital Signs 08/23/23 10:11 Height 5 ft Weight 214 lb 8 oz BMI 41.9 BP 128/86 Blood Pressure Location Lt brachial Position Sitting Pulse 86 Pulse Source Pulse Oximeter Pulse Oximetry (%) 98 Oxygen Delivery Method Room Air Intake Visit Reasons: 1 month follow up Allergies naproxen Allergy (Mild, Verified 08/23/23 10:11) hives etanercept [Enbrel] Adverse Reaction (Mild, Verified 08/23/23 10:11) injection site reaction methotrexate Adverse Reaction (Mild, Verified 08/23/23 10:11) rash, hairloss tizanidine Adverse Reaction (Mild, Verified 08/23/23 10:11) Unknown Medication List - Last Reconciled 08/23/23 by Jah Rodríguez MD adalimumab (Humira) 40 mg subcut QWEEK cetirizine 10 mg PO DAILY 90 days dicyclomine 20 mg (2 x 10 mg) PO QID 30 days L norgest/e.estradiol-e.estrad 0.15 mg-30 mcg (84)/10 mcg (7) 1 tab PO DAILY lamotrigine 200 mg PO DAILY lamotrigine 25 mg PO DAILY [id number] 36,000-114,000- 180,000 unit (Creon) 2 caps PO BID montelukast 10 mg PO DAILY 90 days phentermine 15 mg PO DAILY pregabalin 150 mg PO BID propranolol 20 mg PO BID PRN 90 days tramadol 50 mg PO DAILY 90 days Tobacco use date assessed: 08/23/23 Dental Screening Dental Screen Date: 08/23/23 Did you have a dental visit in the last 12 months?: Yes Did you have a dental problem in the last 6 months where you did not have access to dental care?: No Was dental information given to patient?: Patient has dentist HPI 1 month follow up HPI Details Patient is doing well Gradually losing weight, she is tolerating phentermine no side effects She weighs 214 lb and 8 oz today We started the medication in April when her weight was 236 lb Patient will return next month for her medication refill FORMERLY [facility] Medical History Pain management Headache syndrome Encounter for control pills maintenance PTSD (post-traumatic stress disorder) Difficulty sleeping Chronic pain Anxiety, generalized Depression, major, recurrent Ankylosing spondylitis Surgical History History of carpal tunnel surgery of right wrist History of wisdom tooth extraction Hx of cholecystectomy Hx of colonoscopy (~2011) Family History Father Obesity HTN (hypertension) Mother Asthma Obesity HTN (hypertension) Atrial fibrillation Stomach problems Brother No problems noted. 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 1. Little interest or pleasure in doing things: several days 2. Feeling down, depressed, or hopeless: several days 3. Trouble falling or staying asleep, or sleeping too much: nearly every day 4. Feeling tired or having little energy: nearly every day 5. Poor appetite or overeating: several days 6. Feeling bad about yourself - or that you are a failure or have let yourself or your family down: not at all 7. Trouble concentrating on things, such as reading the newspaper or watching television: nearly every day 8. Moving or speaking so slowly that other people could have noticed. Or the opposite - being so fidgety or restless that you have been moving around a lot more than usual: not at all 9. Thoughts that you would be better off or of hurting yourself in some way: not at all Total score: 12 Depression Screening Interpretation: Positive Depression Screening Follow-up: Existing condition and In treatment Depression Screening Done: Yes 10539 - PHQ-9 Billing: Yes Source: Developed by Drs. Rosas Ravi, Nelly Jacobs, Corey Wallace and colleagues, with an educational parveen from [employer]. Thrive Questionnaire Date Thrive assessed: 08/23/23 I am a: Patient What is your living situation today?: I have a steady place to live Within the past 12 months, did the food you bought not last and you didn't have the money to get more?: Never true Within the past 12 months, did you worry whether your food would run out before you got money to buy more?: Never true Do you have trouble paying for medicines?: No Do you have trouble getting transportation to medical appointments?: No Do you have trouble paying your heating and electricity bill?: No Do you have trouble taking care of your child, family member or friend?: No Do you have trouble with day-to-day activities such as bathing, preparing meals, shopping, managing finances, etc.?: No Are you currently unemployed and looking for a job?: No Are you interested in more education?: No Please select the resources that you would like help with: None Currently or been in a relationship where the following occur: no concerns reported THRIVE Score: 0 AUDIT C Alcohol Use Questionnaire (AUDIT-C) 1. How often do you have a drink containing alcohol?: Monthly or less 2. How many drinks containing alcohol do you have on a typical day when you are drinking?: 1 or 2 3. How often do you have six or more drinks on one occasion?: Less than monthly Total Score: 2 Score Reviewed/Action Taken: Yes JESSICA-7 AMB Questionnaire JESSICA-7 Date JESSICA - 7 assessed: 08/23/23 Feeling nervous, anxious, or on edge: 3 = Nearly every day Not being able to stop or control worryin = Several days Worrying too much about different things: 2 = More than half the days Trouble relaxin = Nearly every day Being so restless that it is hard to sit still: 3 = Nearly every day Becoming easily annoyed or irritable: 2 = More than half the days Feeling afraid as if something awful might happen: 0 = Not at all Total JESSICA-7 score (0-4 normal; 5-9 mild; 10-14 moderate; 15-21 severe): 14 Source: Developed by Drs. Rosas Ravi, Nelly Jacobs, Corey Wallace and colleagues, with an educational parveen from [employer]. JESSICA-7 Assessment Billing JESSICA-7 Assessment Tool: JESSICA-7 Assessment 19299 Review of Systems Const Denies chills and Denies fever(s) ENT Denies epistaxis and Denies nasal discharge Card Denies chest pain Resp Denies chest congestion, Denies cough and Denies hemoptysis GI Denies diarrhea and Denies nausea Skin/Breast Denies rash Neuro Reports no additional complaints Psych Reports no additional complaints Endo Reports no additional complaints Physical exam (Primary Care) Vital Signs: Last Vital Signs Pulse 86 08/23/23 10:11 BP 128/86 08/23/23 10:11 Pulse Ox 98 08/23/23 10:11 Oxygen Delivery Method Room Air 08/23/23 10:11 BMI result Body Mass Index 41.9 Tobacco/Smoking Status: Tobacco use Status Tobacco use date assessed 08/23/23 08/23/23 10:13 Patient Tobacco Use Status Former Tobacco user 08/23/23 10:13 e-Cigarette/Vaping Use Former Use 08/23/23 10:13 PHQ-9: PHQ-9 Score PHQ-9: Total score 12 08/23/23 10:13 Depression Screening Interpretation: Positive Depression Screening Follow-up: Existing condition and In treatment Thrive Assessment: Date of Thrive Assessment Date Thrive assessed 08/23/23 08/23/23 10:13 Currently or been in a relationship where the following occur: no concerns reported Const General: cooperative, comfortable and no acute distress Orientation/consciousness: patient oriented x3 HENMT Head: Yes normocephalic Eyes General: appearance normal, both eyes and all related structures Neck Neck: Yes supple Resp Effort & Inspection: normal respiratory effort, no cough and no stridor Cardio Rhythm: regular rhythm Heart sounds: S1 normal heart sound present and S2 normal heart sound present Skin General skin exam: turgor normal Neuro General: patient oriented x3, tone normal and moves all extremities Extrem Right lower extremity: no edema Left lower extremity: no edema Assessment and Plan Assessment & Plan (1) Morbid obesity due to excess calories: Code(s): E66.01 - Morbid (severe) obesity due to excess calories Plan Patient is doing well Gradually losing weight, she is tolerating phentermine no side effects She weighs 214 lb and 8 oz today We started the medication in April when her weight was 236 lb Patient will return next month for her medication refill Medications: Refilled phentermine must administer 2 hours after breakfast 15 mg PO DAILY 30 caps 0RF Coding Level of Care Code Est Pt Level 3 (08451) Diagnoses Morbid obesity due to excess calories E66.01 Additional Codes JESSICA-7 Assessment Billing - JESSICA-7 Assessment Tool: JESSICA-7 Assessment 24263 ([id number])
== END 2023-08-23 11:23 | disposition home or self-care (01) ==
PROVIDERS: PCP Internal Medicine; Visit Provider Internal Medicine
DX: E66.01 Morbid (severe) obesity due to excess calories (principal); Z68.41 Body mass index [BMI] 40.0-44.9, adult
CPT/HCPCS: 99213

== ENCOUNTER 2023-08-27 11:43 | Outpatient (REF) | payer BC, OTHER, SELFPAY ==
[2023-08-27 13:23] LABS: MANUAL DIFF FLAG NO
[2023-08-27 13:26] LABS: Basophils Absolute Auto 0.1 X10*3/uL (0.0-0.2); Basophils Percent Auto 0.5 % (0-2); Eosinophils Absolute Auto 0.5 X10*3/uL (0.0-0.4); Eosinophils Percent Auto 5.1 % (0-4); Hematocrit 43.2 % (37.0-47.0); Hemoglobin 15.1 g/dl (12.0-16.0); Imm Gran Abs Auto 0.03 X10*3/uL (0.00-0.03); Imm Gran Pct Auto 0.3 % (0.0-0.4); Lymphocytes Absolute Auto 3.3 X10*3/uL (1.2-4.9); Lymphocytes Percent Auto 34.5 % (20-40); Mean Corpuscular Hemoglobin 31.5 pg (27.0-33.0); Mean Corpuscular Volume 90.2 fL (80.0-98.0); Mean Platelet Volume 8.9 fL (9.4-12.3); Monocytes Absolute Auto 0.6 X10*3/uL (0.1-1.2); Monocytes Percent Auto 6.3 % (2-11); Neutrophils Absolute Auto 5.1 x10*3/uL (2.0-8.3); Neutrophils Percent Auto 53.3 % (45-73); Platelet Count 314 X10*3/uL (160-400); Red Blood Count 4.79 X10*6/uL (4.20-5.50); Red Cell Distribution Width 12.6 % (11.0-16.0); White Blood Count 9.6 X10*3/uL (4.8-10.8)
[2023-08-27 13:45] LABS: Alanine Aminotransferase 20 U/L (0-31); Albumin Level 4.5 g/dL (3.5-5.0); Alkaline Phosphatase 47 U/L (39-117); Anion Gap 11 (12-20); Aspartate Amino Transferase 14 U/L (5-31); Bilirubin Total 0.6 mg/dL (0.0-1.0); Blood Urea Nitrogen 14 mg/dL (9-16); Calcium 9.9 mg/dL (8.4-10.2); Carbon Dioxide 26 mmol/L (22-29); Chloride 107 mmol/L (96-108); Estimated Glomerular Filt Rate > 60; Glucose Random 91 mg/dL (60-115); Potassium 4.2 mmol/L (3.3-5.1); Sodium 140 mmol/L (135-145); Total Protein 8.2 g/dL (6.5-8.0)
[2023-08-27 14:00] LABS: TSH reflex Free T4 1.12 uIU/mL (0.32-4.0)
[2023-08-29 23:03] LABS: LDL Cholesterol Direct 175 mg/dL (<100)
[2023-09-01 13:13] LABS: Testosterone, Total 16 ng/dL (2-45)
== END 2023-08-27 11:44 | disposition home or self-care (01) ==
LOC: HO.HMGCLDS 11:43
PROVIDERS: PCP Internal Medicine; Visit Provider Internal Medicine
DX: L68.0 Hirsutism (principal); E66.01 Morbid (severe) obesity due to excess calories; F39 Unspecified mood [affective] disorder
CPT/HCPCS: 36415; 80053; 83498; 83721; 84403; 84443; 85025

== ENCOUNTER 2023-09-05 08:04 | Outpatient (AMB) | payer BC, OTHER, SELFPAY ==
[2023-09-05 08:08] VITALS: BP 122/80; PULSE 76; TEMP 37.3; O2SAT 98; BMI 41.8
--- NOTE | 2023-09-05 08:08 | AM.OFFWIN_ITS ---
Intake Vital Signs 09/05/23 08:08 Height 5 ft Weight 214 lb BMI 41.8 BP 122/80 Blood Pressure Location Lt brachial Position Sitting Pulse 76 Pulse Source Pulse Oximeter Temp 99.2 F Temp Source Oral Pulse Oximetry (%) 98 Intake Visit Reasons: Sore throat& cough (lobby masked) Intake Note: pt is here for sore throat and cough Patient Tobacco Use Status: Former Tobacco user Quit Date: 2018 Allergies naproxen Allergy (Mild, Verified 09/05/23 08:08) hives etanercept [Enbrel] Adverse Reaction (Mild, Verified 09/05/23 08:08) injection site reaction methotrexate Adverse Reaction (Mild, Verified 09/05/23 08:08) rash, hairloss tizanidine Adverse Reaction (Mild, Verified 09/05/23 08:08) Unknown Do you need a note to return to daycare/school/sports/work: Yes HPI HPI Comments History of Present Illness Details Patient presents to the walk in for 2 days cough, sore throat and sinus congestion friend at home sick with same Denies fever, chest pain, shortness of breath, palpitations, syncope, weakness Has been taking OTC medications with minimal improvement. FORMERLY [facility], [facility] Medical History Pain management Headache syndrome Encounter for control pills maintenance PTSD (post-traumatic stress disorder) Difficulty sleeping Chronic pain Anxiety, generalized Depression, major, recurrent Ankylosing spondylitis Surgical History History of carpal tunnel surgery of right wrist History of wisdom tooth extraction Hx of cholecystectomy Hx of colonoscopy (~2011) Family History Father Obesity HTN (hypertension) Mother Asthma Obesity HTN (hypertension) Atrial fibrillation Stomach problems Brother No problems noted. 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 Answers questions appropriately. Fully engaged in examination. Skin: warm, dry, intact HEENT: TMs intact bilaterally, without erythema. Posterior pharynx without erythema or exudate. Sclera without icterus or injection. Cardiac: External chest normal in appearance. Respiratory: +cough. LSCTAB. Abdomen: without gross distension. Neurological: Oriented to person, place, time and situation. Thought process intact. Psychiatric: Appropriate mood and affect. Good judgment and insight. Results Reviewed Results Reviewed: Rapid strep negative Assessment & Plan Assessment & Plan (1) URI (upper respiratory infection): Code(s): J06.9 - Acute upper respiratory infection, unspecified Plan URI, no abx warranted. Rapid strep negative Benzonatate 100mg po bid as needed Rest, drink plenty of fluids, tylenol or motrin as needed. Recommend taking OTC nasal decongestants or flonase. Follow up with pcp or in clinic for any new or worsening symptoms. Go to ER for shortness of breath, chest pain, palpitations, weakness, dizziness. Medications: New benzonatate 100 mg PO BID PRN 20 caps 0RF cough Coding Level of Care Code Est Pt Level 3 (38522) Diagnoses URI (upper respiratory infection) J06.9
== END 2023-09-05 09:09 | disposition home or self-care (01) ==
PROVIDERS: PCP Internal Medicine; Visit Provider Registered Nurse Emergency
DX: J06.9 Acute upper respiratory infection, unspecified (principal); Z13.9 Encounter for screening, unspecified
CPT/HCPCS: 87880; 99213

== ENCOUNTER 2023-09-16 07:56 | Outpatient (AMB) | payer BC, OTHER, SELFPAY ==
[2023-09-16 07:57] VITALS: BP 112/70; BMI 41.8
--- NOTE | 2023-09-16 07:57 | A.OFFVIS_ITS ---
Vital Signs 09/16/23 07:57 Height 5 ft Weight 213 lb 13.574 oz BMI 41.8 BP 112/70 Intake Visit Reasons: ultra sound follow up Technical Sales Representative Required: No Information Interpreted: non-clinical & clinical Shift Coordinator: Shift Coordinator Present Accompanied by: Self / Same As Patient Allergies naproxen Allergy (Mild, Verified 09/16/23 07:57) hives etanercept [Enbrel] Adverse Reaction (Mild, Verified 09/16/23 07:57) injection site reaction methotrexate Adverse Reaction (Mild, Verified 09/16/23 07:57) rash, hairloss tizanidine Adverse Reaction (Mild, Verified 09/16/23 07:57) Unknown Medication List - Last Reconciled 09/16/23 by Antonette Corona CNM adalimumab (Humira) 40 mg subcut QWEEK benzonatate 100 mg PO BID PRN cetirizine 10 mg PO DAILY 90 days dicyclomine 20 mg (2 x 10 mg) PO QID 30 days L norgest/e.estradiol-e.estrad 0.15 mg-30 mcg (84)/10 mcg (7) 1 tab PO DAILY lamotrigine 200 mg PO DAILY lamotrigine 25 mg PO DAILY oexsby-pkudkrrm-ldzpovl 36,000-114,000- 180,000 unit (Creon) 2 caps PO BID montelukast 10 mg PO DAILY 90 days phentermine 15 mg PO DAILY pregabalin 150 mg PO BID propranolol 20 mg PO BID PRN 90 days tramadol 50 mg PO DAILY 90 days Is last menstrual period known: No HPI Comments Details: Is here today for a follow up ultrasound results. She had PCOS labs drawn by her primary care which were normal. History of irregular menses prior to control use. She reports long history of hair loss, coinciding with the start of Humira. She has seen Dermatology in the past for treatment. She is currently taking Junel and doing well using the medication continuously. She has not interested in and prefers not to have any withdrawal bleed. History of migraines without aura, denies any other contraindications to OCP use. FOR[facility]LY [facility] Medical History Pain management Headache syndrome Encounter for control pills maintenance PTSD (post-traumatic stress disorder) Difficulty sleeping Chronic pain Anxiety, generalized Depression, major, recurrent Ankylosing spondylitis Surgical History History of carpal tunnel surgery of right wrist History of wisdom tooth extraction Hx of cholecystectomy Hx of colonoscopy (~2011) Family History Father Obesity HTN (hypertension) Mother Asthma Obesity HTN (hypertension) Atrial fibrillation Stomach problems Brother No problems noted. 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 Cognitive needs: No Hearing needs: No Vision needs: Yes Review of Systems Const All systems reviewed & are unremarkable except as noted in HPI and below Endo Reports no additional complaints Physical Exam Vital Signs: Last Vital Signs BP 112/70 09/16/23 07:57 BMI result Body Mass Index 41.8 Const General: cooperative, healthy appearing and no acute distress Psych Appearance: well kempt Attitude: cooperative Thought process: Normal thought process present Results Reviewed Results Reviewed: [address] [address] Ultrasound Report Signed Patient: Kayley Reynolds MR#: [id number] : 1990 Acct:[id number] Age/Sex: 33 / F ADM Date: 08/23/23 Loc: HO.US Attending Dr: Antonette Corona CNM Ordering Physician: Antonette Corona CNM Date of Service: 08/23/23 Procedure(s): US pelvic and transvaginal Accession Number(s): [id number] cc: Jah Rodríguez MD; Antonette Corona CNM~ EXAMINATION: US PELVIS CLINICAL INFORMATION: Excessive and frequent menses; the last menstrual period is uncertain. COMPARISON: Pelvic ultrasound dated 07/12/2015; MRI pelvis dated 06/15/2018. TECHNIQUE: Ultrasound of the pelvis is performed using both transabdominal and transvaginal transducers along with Doppler. Transvaginal imaging is performed due to inadequate visualization transabdominally. FINDINGS: Uterus: The uterus is anteverted and measures 7.1 x 3.0 x 4.7 cm. A Nabothian cyst is seen within the cervix. The double wall endometrial thickness is 6 mm. The uterus is smooth in contour and has normal myometrial echogenicity. No visible fibroid. Adnexa: Both ovaries are visualized. There is normal color flow to the adnexa. There is no ovarian torsion. There is trace left adnexal free fluid. Right ovary measures 2.6 x 2.4 x 1.6 cm, volume 5.2 mL. Physiologic follicles are noted. Left ovary measures 3.3 x 2.6 x 2.8 cm, volume 12.6 mL. There is a 2.2 cm involuting corpus luteum cyst. This requires no imaging follow-up. US/US pelvic and transvaginal IMPRESSION: 1. A nabothian cyst is seen within the cervix. 2. There is trace left adnexal free fluid. Dictated By: Giovanny Musa MD Signed By: <Electronically signed by Giovanny Musa MD in OV> 08/26/23 1527 DD/ 1135 TD/TT: Advertising Columnist: LEELEE Assessment & Plan Assessment & Plan (1) Encounter to discuss test results: Code(s): Z71.2 - Person consulting for explanation of examination or test findings Plan Discussed: Ultrasound findings, does not have a polycystic appearance to ovaries. Continue with OCP use. control hormone use warnings: go to ER if and loss of vision, blindness, severe headache, chest pain or difficulty breathing, severe abdominal pain, or any pain or swelling in an extremity. Annual exam scheduled for July of 2024. All of her questions and concerns were addressed to the best of my ability. She is agreeable to the plan of care. This note is constructed using voice recognition software. While every effort has been made to ensure accuracy, community health specialist errors may have been included. Medications: Changed From L norgest/e.estradiol-e.estrad 0.15 mg-30 mcg (84)/10 mcg (7) 1 tab PO DAILY To L norgest/e.estradiol-e.estrad 0.15 mg-30 mcg (84)/10 mcg (7) Take continuous dosing, omit placebo pills 1 tab PO DAILY 90 ea 4RF Coding Level of Care Code Est Pt Level 3 (42127) Diagnoses Encounter to discuss test results Z71.2
== END 2023-09-16 08:56 | disposition home or self-care (01) ==
LOC: HO.HWS 07:56
PROVIDERS: PCP Internal Medicine; Visit Provider Advanced Practice Midwife
DX: Z71.2 Person consulting for explanation of examination or test findings (principal)
CPT/HCPCS: 99213

== ENCOUNTER → 2023-09-16 07:56 | Outpatient (BNVA) | payer BC, OTHER, SELFPAY | PROVIDERS: PCP Internal Medicine; Visit Provider Advanced Practice Midwife ==

== ENCOUNTER 2023-10-18 08:21 | Outpatient (AMB) | payer BC, SELFPAY ==
[2023-10-18 08:27] VITALS: BP 138/88; PULSE 94; O2SAT 98; BMI 41.7
--- NOTE | 2023-10-18 08:27 | A.OFFPC_ITS ---
Vital Signs 10/18/23 08:27 Height 5 ft Weight 213 lb 8 oz BMI 41.7 BP 138/88 Blood Pressure Location Rt brachial Position Sitting Pulse 94 Pulse Source Pulse Oximeter Pulse Oximetry (%) 98 Oxygen Delivery Method Room Air Intake Visit Reasons: 9 month fu Allergies naproxen Allergy (Mild, Verified 10/18/23 08:31) hives etanercept [Enbrel] Adverse Reaction (Mild, Verified 10/18/23 08:31) injection site reaction methotrexate Adverse Reaction (Mild, Verified 10/18/23 08:31) rash, hairloss tizanidine Adverse Reaction (Mild, Verified 10/18/23 08:31) Unknown Medication List - Last Reconciled 10/18/23 by Jah Rodríguez MD adalimumab (Humira) 40 mg subcut QWEEK benzonatate 100 mg PO BID PRN cetirizine 10 mg PO DAILY 90 days dicyclomine 20 mg (2 x 10 mg) PO QID 30 days L norgest/e.estradiol-e.estrad 0.15 mg-30 mcg (84)/10 mcg (7) 1 tab PO DAILY lamotrigine 200 mg PO DAILY lamotrigine ER 50 mg PO DAILY [id number] 36,000-114,000- 180,000 unit (Creon) 2 caps PO BID montelukast 10 mg PO DAILY 90 days phentermine 15 mg PO DAILY pregabalin 150 mg PO BID propranolol 20 mg PO BID PRN 90 days tramadol 50 mg PO DAILY 90 days Tobacco use date assessed: 10/18/23 Dental Screening Dental Screen Date: 10/18/23 Did you have a dental visit in the last 12 months?: No Did you have a dental problem in the last 6 months where you did not have access to dental care?: No Was dental information given to patient?: No HPI 9 month fu HPI Details Patient is a 33-year-old female came in today for weight management She is on phentermine currently Her weight has not changed since last couple of months Patient has been feeling more depressed, she is seeing a psychiatrist One of her depression medication more stabilize lamotrigine was increased from 25 mg to 50 mg Which has been helping. Patient says that she would like to try another month since she already have a prescription. She will send me a message in a month with her weight and we will decide whether to go further are not IBS is stable I have sent tramadol script for her chronic lower back pain secondary to ankylosing spondylitis Headaches are stable [facility] Medical History Pain management Headache syndrome Encounter for control pills maintenance PTSD (post-traumatic stress disorder) Difficulty sleeping Chronic pain Anxiety, generalized Depression, major, recurrent Ankylosing spondylitis Surgical History History of carpal tunnel surgery of right wrist History of wisdom tooth extraction Hx of cholecystectomy Hx of colonoscopy (~2011) Family History Father Obesity HTN (hypertension) Mother Asthma Obesity HTN (hypertension) Atrial fibrillation Stomach problems Brother No problems noted. 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 1. Little interest or pleasure in doing things: several days 2. Feeling down, depressed, or hopeless: several days 3. Trouble falling or staying asleep, or sleeping too much: nearly every day 4. Feeling tired or having little energy: nearly every day 5. Poor appetite or overeating: more than half the days 6. Feeling bad about yourself - or that you are a failure or have let yourself or your family down: several days 7. Trouble concentrating on things, such as reading the newspaper or watching television: several days 8. Moving or speaking so slowly that other people could have noticed. Or the opposite - being so fidgety or restless that you have been moving around a lot more than usual: several days 9. Thoughts that you would be better off or of hurting yourself in some way: not at all Total score: 13 Depression Screening Interpretation: Positive Depression Screening Follow-up: Existing condition and In treatment Depression Screening Done: Yes 38181 - PHQ-9 Billing: Yes Source: Developed by Drs. Rosas Ravi, Nelly Jacobs, Corey Wallace and colleagues, with an educational parveen from [employer]. Thrive Questionnaire Date Thrive assessed: 10/18/23 I am a: Patient What is your living situation today?: I have a steady place to live Within the past 12 months, did the food you bought not last and you didn't have the money to get more?: Never true Within the past 12 months, did you worry whether your food would run out before you got money to buy more?: Never true Do you have trouble paying for medicines?: No Do you have trouble getting transportation to medical appointments?: No Do you have trouble paying your heating and electricity bill?: No Do you have trouble taking care of your child, family member or friend?: No Do you have trouble with day-to-day activities such as bathing, preparing meals, shopping, managing finances, etc.?: No Are you currently unemployed and looking for a job?: No Are you interested in more education?: No Please select the resources that you would like help with: None Currently or been in a relationship where the following occur: no concerns reported THRIVE Score: 0 AUDIT C Alcohol Use Questionnaire (AUDIT-C) 1. How often do you have a drink containing alcohol?: Monthly or less 2. How many drinks containing alcohol do you have on a typical day when you are drinking?: 1 or 2 3. How often do you have six or more drinks on one occasion?: Less than monthly Total Score: 2 Score Reviewed/Action Taken: Yes JESSICA-7 AMB Questionnaire JESSICA-7 Date JESSICA - 7 assessed: 10/18/23 Feeling nervous, anxious, or on edge: 3 = Nearly every day Not being able to stop or control worryin = More than half the days Worrying too much about different things: 3 = Nearly every day Trouble relaxin = Several days Being so restless that it is hard to sit still: 2 = More than half the days Becoming easily annoyed or irritable: 1 = Several days Feeling afraid as if something awful might happen: 1 = Several days Total JESSICA-7 score (0-4 normal; 5-9 mild; 10-14 moderate; 15-21 severe): 13 Source: Developed by Drs. Rosas Ravi, Nelly Jacobs, Corey Wallace and colleagues, with an educational parveen from [employer]. JESSICA-7 Assessment Billing JESSICA-7 Assessment Tool: JESSICA-7 Assessment 30537 Review of Systems Const Denies chills and Denies fever(s) ENT Denies epistaxis and Denies nasal discharge Card Denies chest pain Resp Denies chest congestion, Denies cough and Denies hemoptysis GI Denies diarrhea and Denies nausea Skin/Breast Denies rash Neuro Reports no additional complaints Psych Reports no additional complaints Endo Reports no additional complaints Physical exam (Primary Care) Vital Signs: Last Vital Signs Pulse 94 10/18/23 08:27 BP 138/88 10/18/23 08:27 Pulse Ox 98 10/18/23 08:27 Oxygen Delivery Method Room Air 10/18/23 08:27 BMI result Body Mass Index 41.7 Tobacco/Smoking Status: Tobacco use Status Tobacco use date assessed 10/18/23 10/18/23 08:31 Patient Tobacco Use Status Former Tobacco user 10/18/23 08:31 e-Cigarette/Vaping Use Former Use 10/18/23 08:31 PHQ-9: PHQ-9 Score PHQ-9: Total score 13 10/18/23 08:49 Depression Screening Interpretation: Positive Depression Screening Follow-up: Existing condition and In treatment Thrive Assessment: Date of Thrive Assessment Date Thrive assessed 10/18/23 10/18/23 08:33 Currently or been in a relationship where the following occur: no concerns reported Const General: cooperative, comfortable and no acute distress Orientation/consciousness: patient oriented x3 HENMT Head: Yes normocephalic Eyes General: appearance normal, both eyes and all related structures Neck Neck: Yes supple Resp Effort & Inspection: normal respiratory effort, no cough and no stridor Cardio Rhythm: regular rhythm Heart sounds: S1 normal heart sound present and S2 normal heart sound present Skin General skin exam: turgor normal Neuro General: patient oriented x3, tone normal and moves all extremities Extrem Right lower extremity: no edema Left lower extremity: no edema Assessment and Plan Assessment & Plan (1) Morbid obesity due to excess calories: Code(s): E66.01 - Morbid (severe) obesity due to excess calories (2) PTSD (post-traumatic stress disorder): Comment: Management through Psychiatry Code(s): F43.10 - Post-traumatic stress disorder, unspecified (3) Ankylosing spondylitis: Comment: Management through defense travel administrator Code(s): M45.9 - Ankylosing spondylitis of unspecified sites in spine Qualifiers: Ankylosing spondylitis location: lumbar region Qualified Code(s): M45.6 - Ankylosing spondylitis lumbar region (4) IBS (irritable bowel syndrome): Code(s): K58.9 - Irritable bowel syndrome without diarrhea Qualifiers: Irritable bowel syndrome type: with both diarrhea and constipation Qualified Code(s): K58.2 - Mixed irritable bowel syndrome (5) Pain management: Code(s): R52 - Pain, unspecified Plan Patient is a 33-year-old female came in today for weight management She is on phentermine currently Her weight has not changed since last couple of months Patient has been feeling more depressed, she is seeing a psychiatrist One of her depression medication more stabilize lamotrigine was increased from 25 mg to 50 mg Which has been helping. Patient says that she would like to try another month since she already have a prescription. She will send me a message in a month with her weight and we will decide whether to go further are not IBS is stable I have sent tramadol script for her chronic lower back pain secondary to ankylosing spondylitis Headaches are stable Medications: Refilled tramadol 50 mg PO DAILY 90 tabs 0RF 90 days G44.89 - Other headache syndrome, K58.9 - Irritable bowel syndrome without diarrhea, M45.9 - Ankylosing spondylitis of unspecified sites in spine, R52 - Pain, unspecified Coding Level of Care Code Est Pt Level 3 (94791) Diagnoses Morbid obesity due to excess calories E66.01 PTSD (post-traumatic stress disorder) F43.10 Ankylosing spondylitis of lumbar region M45.6 Ankylosing spondylitis location: lumbar region Irritable bowel syndrome with both constipation and diarrhea K58.2 Irritable bowel syndrome type: with both diarrhea and constipation Pain management R52 Additional Codes JESSICA-7 Assessment Billing - JESSICA-7 Assessment Tool: JESSICA-7 Assessment 18644 ([id number])
== END 2023-10-18 09:51 | disposition home or self-care (01) ==
PROVIDERS: PCP Internal Medicine; Visit Provider Internal Medicine
DX: M45.6 Ankylosing spondylitis lumbar region (principal); E66.01 Morbid (severe) obesity due to excess calories; Z68.41 Body mass index [BMI] 40.0-44.9, adult; F43.10 Post-traumatic stress disorder, unspecified; K58.2 Mixed irritable bowel syndrome; R52 Pain, unspecified
CPT/HCPCS: 99213

== ENCOUNTER → 2023-12-09 16:23 | Outpatient (AMB) | payer BC, SELFPAY ==
--- NOTE | 2023-12-09 16:25 | A.OFFVIS_ITS ---
Vital Signs 12/09/23 16:30 Height 5 ft Weight 207 lb 3.752 oz BMI 40.5 BP 133/88 Blood Pressure Location Lt brachial Position Sitting Pulse 87 Intake Visit Reasons: 6 months follow up Intake Note: Kayley presents to in office 6 months follow up of constipation. CC: Patient c/o constipation and feeling that she is not emptying her bowels completely. Television Receiver Analyzer Required: No Accompanied by: Self / Same As Patient Allergies naproxen Allergy (Mild, Verified 01/17/24 08:31) hives etanercept [Enbrel] Adverse Reaction (Mild, Verified 01/17/24 08:31) injection site reaction methotrexate Adverse Reaction (Mild, Verified 01/17/24 08:31) rash, hairloss tizanidine Adverse Reaction (Mild, Verified 01/17/24 08:31) Unknown Medication List - Last Reconciled 12/09/23 by ELOINA Schmitt adalimumab (Humira) 40 mg subcut QWEEK ascorbate calcium (vitamin C) 500 mg PO DAILY biotin 5 mg PO DAILY cetirizine 10 mg PO DAILY 90 days chlorophyll copper complex 100 mg PO DAILY dicyclomine 20 mg (2 x 10 mg) PO QID 30 days [fish oil PO] L norgest/e.estradiol-e.estrad 0.15 mg-30 mcg (84)/10 mcg (7) 1 tab PO DAILY lamotrigine 200 mg PO DAILY lamotrigine ER 50 mg PO DAILY [lions magda PO] [id number]-zkabkjc 36,000-114,000- 180,000 unit (Creon) 2 caps PO BID [magnesium PO] montelukast 10 mg PO DAILY 90 days multivitamin 1 tab PO DAILY phentermine 37.5 mg PO DAILY [prebiotic PO DAILY] pregabalin 150 mg PO BID propranolol 20 mg PO BID PRN 90 days sennosides (senna) 25.8 mg PO BEDTIME tramadol 50 mg PO DAILY 90 days [vitamin A PO] [vitamin E PO DAILY] HPI HPI 6 months follow up: Details: Assessment & Plan (1) Diarrhea: Code(s): R19.7 - Diarrhea, unspecified (2) Bloating symptom: Code(s): R14.0 - Abdominal distension (gaseous) (3) IBS (irritable bowel syndrome): Code(s): K58.9 - Irritable bowel syndrome without diarrhea Qualifiers: Irritable bowel syndrome type: with both diarrhea and constipation Qualified Code(s): K58.2 - Mixed irritable bowel syndrome Plan She is doing fairly well with the meds except for trouble with the dosing schedule of the Creon. This prompts me to educate her that she can take 2 capsules in the morning and 2 caps at night if she wishes because study seem to indicate that this works well. She also continues on her dicyclomine with good control of her cramping. Return office visit in 6 months Medications: Changed From xxilkv-lxnvyqsd-glrkmjk 36,000-114,000- 180,000 unit administer with meals and/or snacks 2 caps PO BID 60 caps 6RF R19.7 - Diarrhea, unspecified To umhmfj-nswtefxo-mgotgtb 36,000-114,000- 180,000 unit (Creon) administer with meals and/or snacks 2 caps PO BID 60 caps 6RF R19.7 - Diarrhea, unspecified Refilled dicyclomine 20 mg (2 x 10 mg) PO QID 240 caps 6RF 30 days K58.9 - Irritable bowel syndrome without diarrhea, R10.9 - Unspecified abdominal pain TODAY'S VISIT She still has very uneven BM's at times no BM for days, then diarrhea but incomplete evacuation and difficultly getting out even normal formed stools. Creon helps with gas. Too much cramping with bisacodyl, taking senna 3 at night not good relief. Plan: either 4 senna day divided or together or LInzess 72mcg. ROV 6 week. [facility] Medical History Mood disorder Rash Diarrhea Pain management Abdominal cramping Encounter for routine gynecological examination Encounter for general adult medical examination with abnormal findings Headache syndrome Encounter for control pills maintenance PTSD (post-traumatic stress disorder) Chronic pain Anxiety, generalized Depression, major, recurrent Ankylosing spondylitis Surgical History History of carpal tunnel surgery of right wrist History of wisdom tooth extraction Hx of cholecystectomy Hx of colonoscopy (~2011) Family History Father Obesity HTN (hypertension) Mother Asthma Obesity HTN (hypertension) Atrial fibrillation Stomach problems Brother No problems noted. 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 Cognitive needs: No Hearing needs: No Vision needs: Yes Review of Systems Const Denies fatigue, Denies fever(s), Denies night sweats, Denies poor appetite and Denies weight loss ENT Reports Normal hearing present, Denies dental pain, Denies dysphagia, Denies hearing loss, Denies mouth pain, Denies odynophagia, Denies throat swelling, Denies tongue swelling and Reports other (Dentition adequate) Card Reports no additional complaints Resp Reports no additional complaints GI Details: Denies abdominal pain, Denies melena, Reports bloating, Denies hematochezia, Reports constipation, Denies GI cramping, Denies dysphagia, Denies excessive flatus, Denies early satiety, Denies heartburn, Denies diarrhea, Denies nausea, Denies odynophagia, Denies vomiting and Denies hematemesis Skin/Breast Denies pruritus, Denies lesions, Denies rash and Denies jaundice Neuro Reports Normal hearing present and Denies Abnormal speech present Endo Denies fatigue Aller/Immun Denies throat swelling and Denies tongue swelling Physical Exam Vital Signs: Last Vital Signs Pulse 87 12/09/23 16:30 BP 133/88 12/09/23 16:30 BMI result Body Mass Index 40.5 Const General: cooperative, no acute distress, well developed and well groomed Nutritional Appearance: well nourished and obese morbidly obese Orientation/consciousness: oriented to person, oriented to place and oriented to time Limitations: No language barrier HEENT Head: Yes normocephalic and Yes atraumatic Eyes General: appearance normal, both eyes and all related structures Pupils: Equal, round and reactive pupils present Neck Neck: Yes normal visual inspection and Yes no lymphadenopathy Thyroid: Thyroid normal Resp Effort & Inspection: normal respiratory effort and able to speak in complete sentences Auscultation: clear to auscultation bilaterally Cardio Rate: regular rate Rhythm: regular rhythm Heart sounds: Normal, physiologic split S2 sound present Peripheral pulses: radial pulses present and posterior tibial pulses present GI Inspection: No distended, Yes Abdominal panniculus present and Yes obesity Palpation (GI): Soft to palpation, nontender, no guarding, not rigid and No hepatosplenomegaly present Percussion: Yes normal to percussion Auscultation: normal bowel sounds Rectal Exam - Female: deferred Skin General skin exam: no rashes or lesions noted, turgor normal, skin not dry, no jaundice, No spider nevi and no striae Rashes: no rashes Nails: normal Neuro General: oriented to person, oriented to place and oriented to time Cranial nerves: Yes Equal, round and reactive pupils present and Yes Normal hearing present Speech: No Abnormal speech present Extrem General: Yes normal to inspection, No clubbing, No cyanosis and No edema Psych Appearance: grossly normal and well kempt Mental Status: mental status grossly normal Speech and movement: Normal speech and movement present Affect: normal affect Attitude: cooperative Thought process: Normal thought process present and not confabulating Thought content: Normal thought content present Insight: Limited insight present (Psych) Judgement: Limited judgement present (Psych) Assessment & Plan Assessment & Plan (1) IBS (irritable bowel syndrome): Code(s): K58.9 - Irritable bowel syndrome without diarrhea Category: Medical Qualifiers: Irritable bowel syndrome type: with both diarrhea and constipation Qualified Code(s): K58.2 - Mixed irritable bowel syndrome (2) Gluten intolerance: Code(s): K90.41 - Non-celiac gluten sensitivity Category: Medical Plan She still has very uneven BM's at times no BM for days, then diarrhea but incomplete evacuation and difficultly getting out even normal formed stools. Creon helps with gas. Too much cramping with bisacodyl, taking senna 3 at night not good relief. Plan: either 4 senna day divided or together or LInzess 72mcg. ROV 6 week. Medications: New linaclotide (Linzess) 72 mcg PO QAM 30 caps 3RF K58.2 - Mixed irritable bowel syndrome Coding Level of Care Code Est Pt Level 3 (70593) Diagnoses Irritable bowel syndrome with both constipation and diarrhea K58.2 Irritable bowel syndrome type: with both diarrhea and constipation Gluten intolerance K90.41
[2023-12-09 16:30] VITALS: BP 133/88; PULSE 87; BMI 40.5
== END ==
PROVIDERS: PCP Internal Medicine; Visit Provider Nurse Practitioner
DX: K58.2 Mixed irritable bowel syndrome (principal); K90.41 Non-celiac gluten sensitivity
CPT/HCPCS: 99213

== ENCOUNTER → 2023-12-09 16:23 | Outpatient (BNVA) | payer BC, SELFPAY | PROVIDERS: PCP Internal Medicine; Visit Provider Nurse Practitioner ==

== ENCOUNTER 2024-01-17 08:23 | Outpatient (AMB) | payer BC, SELFPAY ==
[2024-01-17 08:27] VITALS: BP 122/86; PULSE 113; O2SAT 97; BMI 40.1
--- NOTE | 2024-01-17 08:27 | MHC.PC.OV ---
Vital Signs 01/17/24 08:27 Height 5 ft Weight 205 lb 6 oz BMI 40.1 BP 122/86 Blood Pressure Location Rt brachial Position Sitting Pulse 113 H Pulse Oximetry (%) 97 Oxygen Delivery Method Room Air Intake Visit Reasons: 12 month fu Allergies naproxen Allergy (Mild, Verified 01/17/24 08:31) hives etanercept [Enbrel] Adverse Reaction (Mild, Verified 01/17/24 08:31) injection site reaction methotrexate Adverse Reaction (Mild, Verified 01/17/24 08:31) rash, hairloss tizanidine Adverse Reaction (Mild, Verified 01/17/24 08:31) Unknown Medication List - Last Reconciled 01/17/24 by Jah Rodríguez MD adalimumab (Humira) 40 mg subcut QWEEK ascorbate calcium (vitamin C) 500 mg PO DAILY biotin 5 mg PO DAILY cetirizine 10 mg PO DAILY 90 days chlorophyll copper complex 100 mg PO DAILY dicyclomine 20 mg (2 x 10 mg) PO QID 30 days [fish oil PO] L norgest/e.estradiol-e.estrad 0.15 mg-30 mcg (84)/10 mcg (7) 1 tab PO DAILY lamotrigine 200 mg PO DAILY lamotrigine ER 50 mg PO DAILY linaclotide (Linzess) 72 mcg PO QAM [lions magda PO] zigspb-ablyatky-ucatici 36,000-114,000- 180,000 unit (Creon) 2 caps PO BID [magnesium PO] montelukast 10 mg PO DAILY 90 days multivitamin 1 tab PO DAILY phentermine 37.5 mg PO DAILY [prebiotic PO DAILY] pregabalin 150 mg PO BID propranolol 20 mg PO BID PRN 90 days sennosides (senna) 25.8 mg PO BEDTIME tramadol 50 mg PO DAILY 90 days [vitamin A PO] [vitamin E PO DAILY] Tobacco use date assessed: 01/17/24 Dental Screening Dental Screen Date: 01/17/24 Did you have a dental visit in the last 12 months?: No Did you have a dental problem in the last 6 months where you did not have access to dental care?: No Was dental information given to patient?: Patient has dentist HPI 12 month fu HPI Details Patient is a 33-year-old female came in today for regular three-month follow-up appointment Patient is on phentermine for weight loss since May of this year She has been able to lose some weight but it is coming of slow Patient would like to continue medication, she is tolerating it no side effects Her heart rate is elevated today, patient says that she is feeling anxious She has no palpitations chest pain or shortness a breath She is exercising more and eating healthy, however exercises is causing more pain in her back She recently had labs and x-ray done through Rheumatology, x-rays were within normal limit hip and back Patient has ankylosing spondylitis and is seeing Dr. Haskins Rheumatology at [facility] she is taking Humira Patient is on tramadol 50 mg daily for lower back pain .? Through PCP office, refill sent Her other medications are propranolol for anxiety through Psychiatry Montelukast for allergies Lamotrigine through Psychiatry Dicyclomine for IBS through Gastroenterology Cetirizine for allergies Allergies flare-up off and on Follow-up 3 months PFS Medical History Mood disorder Rash Diarrhea Pain management Abdominal cramping Encounter for routine gynecological examination Encounter for general adult medical examination with abnormal findings Headache syndrome Encounter for control pills maintenance PTSD (post-traumatic stress disorder) Chronic pain Anxiety, generalized Depression, major, recurrent Ankylosing spondylitis Surgical History History of carpal tunnel surgery of right wrist History of wisdom tooth extraction Hx of cholecystectomy Hx of colonoscopy (~2011) Family History Father Obesity HTN (hypertension) Mother Asthma Obesity HTN (hypertension) Atrial fibrillation Stomach problems Brother No problems noted. 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 1. Little interest or pleasure in doing things: several days 2. Feeling down, depressed, or hopeless: several days 3. Trouble falling or staying asleep, or sleeping too much: more than half the days 4. Feeling tired or having little energy: more than half the days 5. Poor appetite or overeating: several days 6. Feeling bad about yourself - or that you are a failure or have let yourself or your family down: several days 7. Trouble concentrating on things, such as reading the newspaper or watching television: several days 8. Moving or speaking so slowly that other people could have noticed. Or the opposite - being so fidgety or restless that you have been moving around a lot more than usual: several days 9. Thoughts that you would be better off or of hurting yourself in some way: not at all Total score: 10 Depression Screening Interpretation: Positive Depression Screening Follow-up: Existing condition and In treatment Depression Screening Done: Yes 10516 - PHQ-9 Billing: Yes Source: Developed by Drs. Rosas Ravi, Nelly Jacobs, Corey Wallace and colleagues, with an educational parveen from [employer]. Thrive Questionnaire Date Thrive assessed: 01/17/24 I am a: Patient What is your living situation today?: I have a steady place to live Within the past 12 months, did the food you bought not last and you didn't have the money to get more?: Never true Within the past 12 months, did you worry whether your food would run out before you got money to buy more?: Never true Do you have trouble paying for medicines?: No Do you have trouble getting transportation to medical appointments?: No Do you have trouble paying your heating and electricity bill?: No Do you have trouble taking care of your child, family member or friend?: No Do you have trouble with day-to-day activities such as bathing, preparing meals, shopping, managing finances, etc.?: No Are you currently unemployed and looking for a job?: No Are you interested in more education?: No Please select the resources that you would like help with: None Currently or been in a relationship where the following occur: No concerns reported THRIVE Score: 0 AUDIT C Alcohol Use Questionnaire (AUDIT-C) 1. How often do you have a drink containing alcohol?: Monthly or less 2. How many drinks containing alcohol do you have on a typical day when you are drinking?: 1 or 2 3. How often do you have six or more drinks on one occasion?: Never Total Score: 1 Score Reviewed/Action Taken: Yes JESSICA-7 AMB Questionnaire JESSICA-7 Date JESSICA - 7 assessed: 01/17/24 Feeling nervous, anxious, or on edge: 2 = More than half the days Not being able to stop or control worryin = More than half the days Worrying too much about different things: 2 = More than half the days Trouble relaxin = Nearly every day Being so restless that it is hard to sit still: 3 = Nearly every day Becoming easily annoyed or irritable: 2 = More than half the days Feeling afraid as if something awful might happen: 0 = Not at all Total JESSICA-7 score (0-4 normal; 5-9 mild; 10-14 moderate; 15-21 severe): 14 Source: Developed by Drs. Rosas Ravi, Nelly Jacobs, Corey Wallace and colleagues, with an educational parveen from [employer]. JESSICA-7 Assessment Billing JESSCIA-7 Assessment Tool: JESSICA-7 Assessment 28490 Review of Systems Const Denies chills and Denies fever(s) ENT Denies epistaxis and Denies nasal discharge Card Denies chest pain Resp Denies chest congestion, Denies cough and Denies hemoptysis GI Denies diarrhea and Denies nausea Skin/Breast Denies rash Neuro Reports no additional complaints Psych Reports no additional complaints Endo Reports no additional complaints Physical exam (Primary Care) Vital Signs: Last Vital Signs Pulse 113 H 01/17/24 08:27 BP 122/86 01/17/24 08:27 Pulse Ox 97 01/17/24 08:27 Oxygen Delivery Method Room Air 01/17/24 08:27 BMI result Body Mass Index 40.1 Tobacco/Smoking Status: Tobacco use Status Tobacco use date assessed 01/17/24 01/17/24 08:31 Patient Tobacco Use Status Former Tobacco user 01/17/24 08:31 e-Cigarette/Vaping Use Former Use 01/17/24 08:31 PHQ-9: PHQ-9 Score PHQ-9: Total score 10 01/17/24 09:08 Depression Screening Interpretation: Positive Depression Screening Follow-up: Existing condition and In treatment Thrive Assessment: Date of Thrive Assessment Date Thrive assessed 01/17/24 01/17/24 08:45 Currently or been in a relationship where the following occur: No concerns reported Const General: cooperative, comfortable and no acute distress Orientation/consciousness: patient oriented x3 HENMT Head: Yes normocephalic Eyes General: appearance normal, both eyes and all related structures Neck Neck: Yes supple Resp Effort & Inspection: normal respiratory effort, no cough and no stridor Cardio Rhythm: regular rhythm Heart sounds: S1 normal heart sound present and S2 normal heart sound present Skin General skin exam: turgor normal Neuro General: patient oriented x3, tone normal and moves all extremities Extrem Right lower extremity: no edema Left lower extremity: no edema Assessment and Plan Assessment & Plan (1) Morbid obesity due to excess calories: Code(s): E66.01 - Morbid (severe) obesity due to excess calories (2) PTSD (post-traumatic stress disorder): Comment: Management through Psychiatry Code(s): F43.10 - Post-traumatic stress disorder, unspecified (3) Ankylosing spondylitis: Comment: Management through business intelligence consultant Code(s): M45.9 - Ankylosing spondylitis of unspecified sites in spine Qualifiers: Ankylosing spondylitis location: lumbar region Qualified Code(s): M45.6 - Ankylosing spondylitis lumbar region (4) IBS (irritable bowel syndrome): Code(s): K58.9 - Irritable bowel syndrome without diarrhea Qualifiers: Irritable bowel syndrome type: with both diarrhea and constipation Qualified Code(s): K58.2 - Mixed irritable bowel syndrome (5) Pain management: Code(s): R52 - Pain, unspecified (6) Environmental allergies: Code(s): Z91.09 - Other allergy status, other than to drugs and biological substances (7) Chronic pain: Code(s): G89.29 - Other chronic pain Qualifiers: Chronic pain type: chronic pain syndrome Qualified Code(s): G89.4 - Chronic pain syndrome (8) Depression, major, recurrent: Comment: Management through Psychiatry Code(s): F33.9 - Major depressive disorder, recurrent, unspecified Qualifiers: Active/Remission status: in partial remission Qualified Code(s): F33.41 - Major depressive disorder, recurrent, in partial remission (9) Anxiety, generalized: Comment: Management through Psychiatry Code(s): F41.1 - Generalized anxiety disorder Plan Patient is a 33-year-old female came in today for regular three-month follow-up appointment Patient is on phentermine for weight loss since May of this year She has been able to lose some weight but it is coming of slow Patient would like to continue medication, she is tolerating it no side effects Her heart rate is elevated today, patient says that she is feeling anxious She has no palpitations chest pain or shortness a breath She is exercising more and eating healthy, however exercises is causing more pain in her back She recently had labs and x-ray done through Rheumatology, x-rays were within normal limit hip and back Patient has ankylosing spondylitis and is seeing Dr. Haskins Rheumatology at [facility] she is taking Humira Patient is on tramadol 50 mg daily for lower back pain .? Through PCP office, refill sent Her other medications are propranolol for anxiety through Psychiatry Montelukast for allergies Lamotrigine through Psychiatry Dicyclomine for IBS through Gastroenterology Cetirizine for allergies Allergies flare-up off and on Follow-up 3 months Orders: Orders Complete Blood Count Auto Diff Today E66.01 - Morbid (severe) obesity due to excess calories, F33.41 - Major depressive disorder, recurrent, in partial remission, F41.1 - Generalized anxiety disorder, G89.4 - Chronic pain syndrome, K58.2 - Mixed irritable bowel syndrome, M45.6 - Ankylosing spondylitis lumbar region Comprehensive Met. Panel Today E66.01 - Morbid (severe) obesity due to excess calories, F33.41 - Major depressive disorder, recurrent, in partial remission, F41.1 - Generalized anxiety disorder, G89.4 - Chronic pain syndrome, K58.2 - Mixed irritable bowel syndrome, M45.6 - Ankylosing spondylitis lumbar region Medications: Refilled phentermine must administer 2 hours after breakfast further refills will need office visit 37.5 mg PO DAILY 30 caps 2RF tramadol 50 mg PO DAILY 90 tabs 0RF 90 days G44.89 - Other headache syndrome, K58.9 - Irritable bowel syndrome without diarrhea, M45.9 - Ankylosing spondylitis of unspecified sites in spine, R52 - Pain, unspecified Coding Level of Care Code Est Pt Level 4 (77046) Diagnoses Morbid obesity due to excess calories E66.01 PTSD (post-traumatic stress disorder) F43.10 Ankylosing spondylitis of lumbar region M45.6 Ankylosing spondylitis location: lumbar region Irritable bowel syndrome with both constipation and diarrhea K58.2 Irritable bowel syndrome type: with both diarrhea and constipation Pain management R52 Environmental allergies Z91.09 Chronic pain syndrome G89.4 Chronic pain type: chronic pain syndrome Recurrent major depressive disorder, in partial remission F33.41 Active/Remission status: in partial remission Anxiety, generalized F41.1 Additional Codes JESSICA-7 Assessment Billing - JESSICA-7 Assessment Tool: JESSICA-7 Assessment 42005 ([id number])
== END 2024-01-17 08:44 | disposition home or self-care (01) ==
PROVIDERS: PCP Internal Medicine; Visit Provider Internal Medicine
DX: M45.6 Ankylosing spondylitis lumbar region (principal); F33.41 Major depressive disorder, recurrent, in partial remission; Z68.41 Body mass index [BMI] 40.0-44.9, adult; E66.01 Morbid (severe) obesity due to excess calories; K58.2 Mixed irritable bowel syndrome; F43.10 Post-traumatic stress disorder, unspecified; R52 Pain, unspecified; G89.4 Chronic pain syndrome; Z91.09 Other allergy status, other than to drugs and biological substances; F41.1 Generalized anxiety disorder
CPT/HCPCS: 99214

== ENCOUNTER 2024-04-14 09:46 | Outpatient (REF) | payer BC, SELFPAY ==
[2024-04-14 11:03] LABS: MANUAL DIFF FLAG NO
[2024-04-14 11:05] LABS: Basophils Absolute Auto 0.1 X10*3/uL (0.0-0.2); Basophils Percent Auto 0.5 % (0-2); Eosinophils Absolute Auto 0.2 X10*3/uL (0.0-0.4); Eosinophils Percent Auto 2.6 % (0-4); Hematocrit 41.8 % (37.0-47.0); Hemoglobin 14.6 g/dl (12.0-16.0); Imm Gran Abs Auto 0.01 X10*3/uL (0.00-0.03); Imm Gran Pct Auto 0.1 % (0.0-0.4); Lymphocytes Absolute Auto 3.9 X10*3/uL (1.2-4.9); Lymphocytes Percent Auto 42.5 % (20-40); Mean Corpuscular HGB Conc 34.9 g/dl (31.0-35.0); Mean Corpuscular Hemoglobin 31.2 pg (27.0-33.0); Mean Corpuscular Volume 89.3 fL (80.0-98.0); Mean Platelet Volume 8.7 fL (9.4-12.3); Monocytes Absolute Auto 0.7 X10*3/uL (0.1-1.2); Monocytes Percent Auto 7.4 % (2-11); Neutrophils Absolute Auto 4.3 x10*3/uL (2.0-8.3); Neutrophils Percent Auto 46.9 % (45-73); Platelet Count 346 X10*3/uL (160-400); Red Blood Count 4.68 X10*6/uL (4.20-5.50); Red Cell Distribution Width 12.4 % (11.0-16.0); White Blood Count 9.2 X10*3/uL (4.8-10.8)
[2024-04-14 11:48] LABS: Alanine Aminotransferase 17 U/L (0-31); Albumin Level 4.4 g/dL (3.5-5.0); Alkaline Phosphatase 38 U/L (39-117); Anion Gap 10 (12-20); Aspartate Amino Transferase 16 U/L (5-31); Bilirubin Total 0.4 mg/dL (0.0-1.0); Blood Urea Nitrogen 11 mg/dL (9-16); Calcium 9.7 mg/dL (8.4-10.2); Carbon Dioxide 25 mmol/L (22-29); Chloride 109 mmol/L (96-108); Estimated Glomerular Filt Rate > 60; Glucose Random 92 mg/dL (60-115); Potassium 4.5 mmol/L (3.3-5.1); Sodium 139 mmol/L (135-145); Total Protein 7.7 g/dL (6.5-8.0)
== END 2024-04-14 09:47 | disposition home or self-care (01) ==
LOC: HO.HMGCLDS 09:46
PROVIDERS: PCP Internal Medicine; Visit Provider Internal Medicine
DX: E66.01 Morbid (severe) obesity due to excess calories (principal); F41.1 Generalized anxiety disorder; G89.4 Chronic pain syndrome; M45.6 Ankylosing spondylitis lumbar region; F33.41 Major depressive disorder, recurrent, in partial remission; K58.2 Mixed irritable bowel syndrome
CPT/HCPCS: 36415; 80053; 85025

== ENCOUNTER 2024-04-18 08:27 | Outpatient (AMB) | payer BC, SELFPAY ==
[2024-04-18 08:33] VITALS: BP 130/82; PULSE 120; TEMP 36.9; O2SAT 98; BMI 39.3
--- NOTE | 2024-04-18 08:33 | A.OFFPC_ITS ---
Vital Signs 04/18/24 08:33 Height 5 ft Weight 201 lb BMI 39.3 BP 130/82 Blood Pressure Location Rt brachial Position Sitting Pulse 120 H Pulse Source Pulse Oximeter Temp 98.4 F Temp Source Oral Pulse Oximetry (%) 98 Oxygen Delivery Method Room Air Intake Visit Reasons: 3 mon f/u Allergies naproxen Allergy (Mild, Verified 04/18/24 08:46) hives etanercept [Enbrel] Adverse Reaction (Mild, Verified 04/18/24 08:46) injection site reaction methotrexate Adverse Reaction (Mild, Verified 04/18/24 08:46) rash, hairloss tizanidine Adverse Reaction (Mild, Verified 04/18/24 08:46) Unknown Medication List - Last Reconciled 04/18/24 by Jah Rodríguez MD adalimumab (Humira) 40 mg subcut QWEEK ascorbate calcium (vitamin C) 500 mg PO DAILY biotin 5 mg PO DAILY cetirizine 10 mg PO DAILY 90 days chlorophyll copper complex 100 mg PO DAILY dicyclomine 20 mg (2 x 10 mg) PO QID 30 days [fish oil PO] L norgest/e.estradiol-e.estrad 0.15 mg-30 mcg (84)/10 mcg (7) 1 tab PO DAILY lamotrigine 200 mg PO DAILY lamotrigine ER 50 mg PO DAILY linaclotide (Linzess) 72 mcg PO QAM [lions magda PO] tyivvn-cswpwngp-heisned 36,000-114,000- 180,000 unit (Creon) 2 caps PO BID [magnesium PO] montelukast 10 mg PO DAILY 90 days multivitamin 1 tab PO DAILY phentermine 37.5 mg PO DAILY [prebiotic PO DAILY] pregabalin 150 mg PO BID propranolol 20 mg PO BID PRN 90 days sennosides (senna) 25.8 mg PO BEDTIME tramadol 50 mg PO DAILY 90 days [vitamin A PO] [vitamin E PO DAILY] Tobacco use date assessed: 04/18/24 Dental Screening Dental Screen Date: 04/18/24 Did you have a dental visit in the last 12 months?: Yes Did you have a dental problem in the last 6 months where you did not have access to dental care?: No Was dental information given to patient?: Patient has dentist HPI 3 mon f/u HPI Details Chief Complaint Patient presents with suspected influenza symptoms. Assessment and Plan 33-year-old female with history of possi ble influenza exposure presenting with symptoms suggestive of influenza onset. The patient reports feeling unwell since last night with suspected exposure from her workplace where multiple colleagues have the flu. The patient is vaccinated against influenza, which may result in a mild presentation if infected. No fever noted during the evaluation, and lungs are clear upon auscultation. The patient also reports recent weight loss of approximately 3 pounds with a history of phentermine use, questioning continued need and effectiveness of the medication. No shortness of breath or difficulty in breathing reported. She need refill on tramadol that she takes for ankylosing spondylitis pain. 1. Weight Loss intentional The patient should monitor her weight and consider dietary adjustments, . The weight loss was discussed in the context of phentermine usage, she is not sure if she would like to continue the medication She does have full prescription, she intends to finish that and then she will make up her mind 2. Opioid Medication Use Tramadol Need a refill on tramadol , refill sent 3. Influenza, Possible Exposure The patient is advised to undergo influenza testing due to workplace exposure. Given her immunization status, any potential infection is expected to be mild. Further monitoring for the development of flu symptoms is indicated, and the patient should self-isolate if symptoms such as coughing or fever develop. There is no current indication for antiviral medication, but this may be reconsidered if symptoms worsen. Problem List - Influenza, possible exposure - Weight loss due to use of phentermine - Opioid medication use (Tramadol) Patient Instructions - Undergo influenza testing as discussed . - Monitor for further symptoms of influe nza and self-isolate if needed. - Continue monitoring weight and dietary intake. - Use tramadol as needed, - Results of flu test will appear on the patient portal; patient may contact an on-call doctor if needed. - Seek further medical consultation if s ymptoms worsen or additional concerns arise. [facility] Medical History Mood disorder Rash Diarrhea Pain management Abdominal cramping Encounter for routine gynecological examination Encounter for general adult medical examination with abnormal findings Headache syndrome Encounter for control pills maintenance PTSD (post-traumatic stress disorder) Chronic pain Anxiety, generalized Depression, major, recurrent Ankylosing spondylitis Surgical History History of carpal tunnel surgery of right wrist History of wisdom tooth extraction Hx of cholecystectomy Hx of colonoscopy (~2011) Family History Father Obesity HTN (hypertension) Mother Asthma Obesity HTN (hypertension) Atrial fibrillation Stomach problems Brother No problems noted. 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 Cognitive needs: No Hearing needs: No Vision needs: Yes Questionnaire Thrive Questionnaire Date Thrive assessed: 01/17/24 I am a: Patient What is your living situation today?: I have a steady place to live Within the past 12 months, did the food you bought not last and you didn't have the money to get more?: Never true Within the past 12 months, did you worry whether your food would run out before you got money to buy more?: Never true Do you have trouble paying for medicines?: No Do you have trouble getting transportation to medical appointments?: No Do you have trouble paying your heating and electricity bill?: No Do you have trouble taking care of your child, family member or friend?: No Do you have trouble with day-to-day activities such as bathing, preparing meals, shopping, managing finances, etc.?: No Are you currently unemployed and looking for a job?: No Are you interested in more education?: No Please select the resources that you would like help with: None Currently or been in a relationship where the following occur: No concerns reported THRIVE Score: 0 AUDIT C Alcohol Use Questionnaire (AUDIT-C) 1. How often do you have a drink containing alcohol?: Monthly or less 2. How many drinks containing alcohol do you have on a typical day when you are drinking?: 1 or 2 3. How often do you have six or more drinks on one occasion?: Never Total Score: 1 Score Reviewed/Action Taken: Yes JESSICA-7 AMB Questionnaire JESSICA-7 Date JESSICA - 7 assessed: 01/17/24 Source: Developed by Drs. Rosas Ravi, Nelly Jacobs, Corey Wallace and colleagues, with an educational parveen from [employer]. Review of Systems Const Denies fever(s) ENT Denies epistaxis and Denies nasal discharge Card Denies chest pain Resp Denies chest congestion and Denies hemoptysis GI Denies diarrhea and Denies nausea Skin/Breast Denies rash Neuro Reports no additional complaints Psych Reports no additional complaints Endo Reports no additional complaints Physical exam (Primary Care) Vital Signs: Last Vital Signs Temp 98.4 F 04/18/24 08:33 Pulse 120 H 04/18/24 08:33 BP 130/82 04/18/24 08:33 Pulse Ox 98 04/18/24 08:33 Oxygen Delivery Method Room Air 04/18/24 08:33 BMI result Body Mass Index 39.3 Tobacco/Smoking Status: Tobacco use Status Tobacco use date assessed 04/18/24 04/18/24 08:46 Patient Tobacco Use Status Former Tobacco user 04/18/24 08:35 e-Cigarette/Vaping Use Former Use 04/18/24 08:35 Thrive Assessment: Date of Thrive Assessment Date Thrive assessed 01/17/24 04/18/24 08:35 Currently or been in a relationship where the following occur: No concerns reported Const General: cooperative, comfortable and no acute distress Orientation/consciousness: patient oriented x3 HENMT Head: Yes normocephalic Eyes General: appearance normal, both eyes and all related structures Neck Neck: Yes supple Resp Other: Clear to auscultation posteriorly bilateral Effort & Inspection: normal respiratory effort, no cough and no stridor Cardio Rhythm: regular rhythm Heart sounds: S1 normal heart sound present and S2 normal heart sound present Skin General skin exam: turgor normal Neuro General: patient oriented x3, tone normal and moves all extremities Extrem Right lower extremity: no edema Left lower extremity: no edema Coding Level of Care Code Est Pt Level 3 (81077) Diagnoses Exposure to influenza Z20.828 Acute laryngotracheitis J04.2 URI type: acute laryngotracheitis Ankylosing spondylitis of lumbar region M45.6 Ankylosing spondylitis location: lumbar region Morbid obesity due to excess calories E66.01 Assessment & Plan Assessment & Plan (1) Exposure to influenza: Code(s): Z20.828 - Contact with and (suspected) exposure to other viral communicable diseases Category: Medical (2) URI (upper respiratory infection): Code(s): J06.9 - Acute upper respiratory infection, unspecified Category: Medical Qualifiers: URI type: acute laryngotracheitis Qualified Code(s): J04.2 - Acute laryngotracheitis (3) Ankylosing spondylitis: 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 Assessment and Plan 33-year-old female with history of possible influenza exposure presenting with symptoms suggestive of influenza onset. The patient reports feeling unwell since last night with suspected exposure from her workplace where multiple colleagues have the flu. The patient is vaccinated against influenza, which may result in a mild presentation if infected. No fever noted during the evaluation, and lungs are clear upon auscultation. The patient also reports recent weight loss of approximately 3 pounds with a history of phentermine use, questioning continued need and effectiveness of the medication. No shortness of breath or difficulty in breathing reported. She need refill on tramadol that she takes for ankylosing spondylitis pain. 1. Weight Loss intentional The patient should monitor her weight and consider dietary adjustments, . The weight loss was discussed in the context of phentermine usage, she is not sure if she would like to continue the medication She does have full prescription, she intends to finish that and then she will make up her mind 2. Opioid Medication Use Tramadol Need a refill on tramadol , refill sent 3. Influenza, Possible Exposure The patient is advised to undergo influenza testing due to workplace exposure. Given her immunization status, any potential infection is expected to be mild. Further monitoring for the development of flu symptoms is indicated, and the patient should self-isolate if symptoms such as coughing or fever develop. There is no current indication for antiviral medication, but this may be reconsidered if symptoms worsen. Problem List - Influenza, possible exposure - Weight loss due to use of phentermine - Opioid medication use (Tramadol) Patient Instructions - Undergo influenza testing as discussed. - Monitor for further symptoms of influenza and self-isolate if needed. - Continue monitoring weight and dietary intake. - Use tramadol as needed, - Results of flu test will appear on the patient portal; patient may contact an on-call doctor if needed. - Seek further medical consultation if symptoms worsen or additional concerns arise. Orders: Orders SARS-CoV2/FLU/RSV Today R09.89 - Other specified symptoms and signs involving the circulatory and respiratory systems
== END 2024-04-18 09:08 | disposition home or self-care (01) ==
PROVIDERS: PCP Internal Medicine; Visit Provider Internal Medicine
DX: J04.2 Acute laryngotracheitis (principal); M45.6 Ankylosing spondylitis lumbar region; E66.01 Morbid (severe) obesity due to excess calories; Z68.39 Body mass index [BMI] 39.0-39.9, adult; Z20.828 Contact with and (suspected) exposure to other viral communicable diseases

== ENCOUNTER 2024-04-18 08:27 | Outpatient (REF) | payer BC, SELFPAY ==
[2024-04-18 11:16] LABS: Influenza A PCR NEGATIVE (Negative); Influenza B PCR NEGATIVE (Negative); Resp Syncy Virus RNA Qual PCR NEGATIVE (Negative); SARS COV2 PCR INHOUSE NEGATIVE (Negative)
== END 2024-04-18 08:28 | disposition home or self-care (01) ==
LOC: HO.LNP 08:27
PROVIDERS: PCP Internal Medicine; Visit Provider Internal Medicine
DX: R09.89 Other specified symptoms and signs involving the circulatory and respiratory systems (principal); J06.9 Acute upper respiratory infection, unspecified
CPT/HCPCS: 0241U

== ENCOUNTER 2024-05-17 13:21 | Outpatient (AMB) | payer BC, SELFPAY ==
[2024-05-17 13:26] VITALS: BP 118/70; BMI 39.3
--- NOTE | 2024-05-17 13:26 | A.OFFVIS_ITS ---
Vital Signs 05/17/24 13:26 Height 5 ft Weight 201 lb BMI 39.3 BP 118/70 Intake Visit Reasons: BC consult Name Plate Stamper Required: No Information Interpreted: clinical only Principal Systems Architect: Principal Systems Architect Present Allergies naproxen Allergy (Mild, Verified 05/17/24 13:28) hives etanercept [Enbrel] Adverse Reaction (Mild, Verified 05/17/24 13:28) injection site reaction methotrexate Adverse Reaction (Mild, Verified 05/17/24 13:28) rash, hairloss tizanidine Adverse Reaction (Mild, Verified 05/17/24 13:28) Unknown Medication List - Last Reconciled 05/17/24 by Stella Maher CNM adalimumab (Humira) 40 mg subcut QWEEK ascorbate calcium (vitamin C) 500 mg PO DAILY biotin 5 mg PO DAILY cetirizine 10 mg PO DAILY 90 days chlorophyll copper complex 100 mg PO DAILY dicyclomine 20 mg (2 x 10 mg) PO QID 30 days [fish oil PO] L norgest/e.estradiol-e.estrad 0.15 mg-30 mcg (84)/10 mcg (7) 1 tab PO DAILY lamotrigine 200 mg PO DAILY lamotrigine ER 50 mg PO DAILY linaclotide (Linzess) 72 mcg PO QAM [lions magda PO] ppfhkg-vmupstck-rjwnsuu 36,000-114,000- 180,000 unit (Creon) 2 caps PO BID [magnesium PO] montelukast 10 mg PO DAILY 90 days multivitamin 1 tab PO DAILY [prebiotic PO DAILY] pregabalin 150 mg PO BID propranolol 20 mg PO BID PRN 90 days sennosides (senna) 25.8 mg PO BEDTIME tramadol 50 mg PO DAILY 90 days [vitamin A PO] [vitamin E PO DAILY] Is last menstrual period known: Yes Last menstrual period: 05/03/24 HPI HPI BC consult: Details: Patient is here to discuss breakthrough bleeding and cramping that she has had ever since she switched to the newer formulation of control pills that she was given. She said she was prescribed them in August but she finished an older prescription that she had from a previous freight forwarder and so she did not switch the pills over until this last February. She says that she has been spotting ever since she switched the prescription and she had not had that problem before. She had presented to this practice wearing whether not she had PCOS because she was overweight she did have hirsute is Um and she had in the past had irregular and/or heavy long periods. In the past she was sexually active she is not currently and has not been for the last year she is not interested in ever having a baby but she is interested in control in her she is interested in controlling her bleeding pattern she says the other ones were working for her and she is not sure now why they were switched but there was a discussion about it. She does know that she has always been aware of her premenstrual symptoms and even if she did not get a full. She got other associated symptoms throughout her cycle so perhaps that was the reason. She wants to switch back to the formulation she was on before which she showed in her phone was norethindrone 1 mg/ethinyl as to do all 20 mcg with iron. The pills she started in February are norgestimate 1.5 mg/ethinyl estradiol 30 mcg. She wants to switch back to the original ones, and she would like to continue skipping the placebo pills,( although per our discussion she is willing to 1 full withdrawal bleed before switching the pills back.) [facility] Medical History Mood disorder Rash Diarrhea Pain management Abdominal cramping Encounter for routine gynecological examination Encounter for general adult medical examination with abnormal findings Headache syndrome Encounter for control pills maintenance PTSD (post-traumatic stress disorder) Chronic pain Anxiety, generalized Depression, major, recurrent Ankylosing spondylitis Surgical History History of carpal tunnel surgery of right wrist History of wisdom tooth extraction Hx of cholecystectomy Hx of colonoscopy (~2011) Family History Father Obesity HTN (hypertension) Mother Asthma Obesity HTN (hypertension) Atrial fibrillation Stomach problems Brother No problems noted. 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 Cognitive needs: No Hearing needs: No Vision needs: Yes Female Reproductive History Menstrual Age of Menarche: 11 Duration of menses: 3-5 days Date of last menstrual period: 05/03/24 control method: pills Total pregnancies: 0 Date of last pap smear: 04/12/21 (negative) Physical Exam Vital Signs: Last Vital Signs BP 118/70 05/17/24 13:26 BMI result Body Mass Index 39.3 Assessment & Plan Assessment & Plan (1) Breakthrough bleeding on OCPs: Code(s): N92.1 - Excessive and frequent menstruation with irregular cycle Category: Medical Plan Patient is here to discuss breakthrough bleeding and cramping that she has had ever since she switched to the newer formulation of control pills that she was given. She said she was prescribed them in August but she finished an older prescription that she had from a previous freight forwarder and so she did not switch the pills over until this last February. She says that she has been spotting ever since she switched the prescription and she had not had that problem before. She had presented to this practice wearing whether not she had PCOS because she was overweight she did have hirsute is Um and she had in the past had irregular and/or heavy long periods. In the past she was sexually active she is not currently and has not been for the last year she is not interested in ever having a baby but she is interested in control in her she is interested in controlling her bleeding pattern she says the other ones were working for her and she is not sure now why they were switched but there was a discussion about it. She does know that she has always been aware of her premenstrual symptoms and even if she did not get a full period. She got other associated symptoms throughout her cycle so perhaps that was the reason. She wants to switch back to the formulation she was on before which she showed in her phone was norethindrone 1 mg/ethinyl estradiol 20 mcg with iron. The pills she started in February are norgestimate 1.5 mg/ethinyl estradiol 30 mcg. She wants to switch back to the original ones, and she would like to continue skipping the placebo pills,( although per our discussion she is willing to 1 full withdrawal bleed before switching the pills back.) I recommend that she choose the day to stop this current pill pack allow herself at least 2-3 days of a good withdrawal bleed and then switch to the brand new pack and start on day 1 she can time it so that she does a Tuesday start. I do recommend that she do start the new pack in a timely fashion however to mimic the number of days she would be on placebo and not go any longer this way she will minimize her chances hopefully having a heavy breakthrough bleed been episode in the future. I do think that this all maybe a coincidence to the switch of the pills but nevertheless when someone's been on continuous OCPs for very long time the risk of breakthrough bleeding goes up and having at least 1 withdrawal bleed before starting fresh maybe helpful though I cautioned not to wait more than 3 days into the bleed before starting the new pills. Discussed possible changes to expect in addition the patient had wondered why in the past she had been given norethindrone and a different freight forwarder had commented on wondering about why she had but in reviewing the reasons the patient admits that she had been a smoker when she had been prescribed the norethindrone and that would have explained it regardless of any other reasons. Medications: New norethindrone-e.estradiol-iron 1 mg-20 mcg (24)/75 mg (4) 1 tab PO DAILY 84 tabs 4RF Discontinued L norgest/e.estradiol-e.estrad 0.15 mg-30 mcg (84)/10 mcg (7) Take continuous dosing, omit placebo pills Discontinued Reason: No Longer Medically Relevant 1 tab PO DAILY 90 ea 4RF Coding Level of Care Code Est Pt Level 3 (75507) Diagnoses Breakthrough bleeding on OCPs N92.1 Time Spent (min) 30 Comment 100% spent [id number] reviewing her history and symptoms and making plan.
== END 2024-05-17 14:18 | disposition home or self-care (01) ==
PROVIDERS: PCP Internal Medicine; Visit Provider Advanced Practice Midwife
DX: N92.1 Excessive and frequent menstruation with irregular cycle (principal)
CPT/HCPCS: 99213

== ENCOUNTER → 2024-05-17 13:21 | Outpatient (BNVA) | payer BC, SELFPAY | PROVIDERS: PCP Internal Medicine; Visit Provider Advanced Practice Midwife ==

== ENCOUNTER 2024-06-19 10:37 | Outpatient (REF) | payer BC, SELFPAY ==
[2024-06-19 17:45] LABS: MANUAL DIFF FLAG NO
[2024-06-19 17:47] LABS: Basophils Percent Auto 0.1 % (0-2); Hemoglobin 15.4 g/dl (12.0-16.0); Imm Gran Abs Auto 0.08 X10*3/uL (0.00-0.03); Imm Gran Pct Auto 0.5 % (0.0-0.4); Lymphocytes Percent Auto 13.4 % (20-40); Mean Corpuscular Hemoglobin 31.4 pg (27.0-33.0); Mean Corpuscular Volume 89.8 fL (80.0-98.0); Mean Platelet Volume 9.1 fL (9.4-12.3); Monocytes Absolute Auto 0.6 X10*3/uL (0.1-1.2); Monocytes Percent Auto 3.7 % (2-11); Neutrophils Absolute Auto 12.2 x10*3/uL (2.0-8.3); Neutrophils Percent Auto 82.3 % (45-73); Platelet Count 381 X10*3/uL (160-400); Red Cell Distribution Width 12.8 % (11.0-16.0); White Blood Count 14.8 X10*3/uL (4.8-10.8)
[2024-06-19 18:10] LABS: Aspartate Amino Transferase 18 U/L (5-31); C Reactive Protein < 0.04 mg/dL (< or = 0.50); Estimated Glomerular Filt Rate > 60
[2024-06-19 18:21] LABS: Alanine Aminotransferase 35 U/L (0-31)
[2024-06-19 18:34] LABS: Erythrocyte Sedimentation Rate 7 MM/HR (0-20)
[2024-06-20 03:36] LABS: HBS Num1 0.36 mIU/mL (0-7.99); HBc Num1 0.23 S/CO (0.00-0.79); HBsAGNum1 0.39 S/CO (0.00-0.99); Hepatitis B Core Antibody Nonreactive (Nonreactive); Hepatitis B Surface Antigen Negative (Negative); ~HepC Num1 0.07 S/CO (0.00-0.79); ~Hepatitis B Surface Antibody NONREACTIVE (Nonreactive); ~Hepatitis C Antibody Nonreactive (Nonreactive)
[2024-06-22 05:18] LABS: TS Negative Control Passed; TS Panel A 0; TS Panel B 0; TS Positive Control Passed; TSpotTB Negative (Negative)
== END 2024-06-19 10:38 | disposition home or self-care (01) ==
LOC: HO.HKASLDS 10:37
PROVIDERS: PCP Internal Medicine; Visit Provider Internal Medicine Rheumatology
DX: M54.6 Pain in thoracic spine (principal)
CPT/HCPCS: 36415; 82565; 84450; 84460; 85025; 85652; 86140; 86481; 86704; 86706; 86803; 87340

== ENCOUNTER 2024-06-19 10:37 | Outpatient (AMB) | payer BC, SELFPAY ==
[2024-06-19 10:55] VITALS: BP 134/78; PULSE 94; O2SAT 97; BMI 39.9
--- NOTE | 2024-06-19 10:55 | A.OFFVIS_ITS ---
Vital Signs 06/19/24 10:55 Height 5 ft Weight 204 lb 8 oz BMI 39.9 BP 134/78 Blood Pressure Location Lt brachial Position Sitting Pulse 94 Pulse Source Pulse Oximeter Pulse Oximetry (%) 97 Oxygen Delivery Method Room Air Intake Visit Reasons: spondylitis Intake Note: Patient presents for ankylosing spondylitis. She was internally referred by Dr. Rodríguez. Allergies adalimumab [From Humira] Allergy (Mild, Verified 06/19/24 11:00) Rash itcing, with hives naproxen Allergy (Mild, Verified 05/17/24 13:28) hives etanercept [Enbrel] Adverse Reaction (Mild, Verified 05/17/24 13:28) injection site reaction methotrexate Adverse Reaction (Mild, Verified 05/17/24 13:28) rash, hairloss tizanidine Adverse Reaction (Mild, Verified 05/17/24 13:28) Unknown HPI HPI spondylitis: Details: New patient. She has Ankylosing spondylitis (+[id number]) dx 2017 by PA. Jeremy Soliz then followed by Dr. Go treated with Humira for 7 years. She developed a diffuse rash the day after taking humira on 05/27/2024. She developed hive on right abdomen injection site, which spread to her extremities and face. She was prescribed prednisone 60mg qd 6 days by urgent care last dose last Tuesday and she took methylprednisolone 60mg qd 2 days for the last two days. She had methylprednisolone at home. She is on chronic certirizine x2 and loratadine daily for intermittent chronic utraria. She has seen HOWARD Arango's office in the past. Pruritus is uncontrolled. She has tried topical Benadryl and oral Benadryl at bedtime without benefit. She did not tolerate methotrexate in the past. She experienced rash, hair loss lethargy, nausea and just felt unwell. She has been given prednisone for flares. She had a reaction to Celebrex. She remembers being on meloxicam in the past. Naproxen caused hives. She had chronic lower back pain and lateral hip pain and and stiffness since being a teenage. She feels bone in hip is moving up when stepping limiting mobility and exercise at times. Failed trochanteric bursa injection 3 years ago. She has gone to physical therapy. She has headaches and neck pain. She has gone to PT. Pain and swelling in feet and ankles since age 11. She stopped Humira weekly. Increase stiffness in neck. Difficulty driving. She still had back pain and neck pain on humira but it is manageable. MS 1 hours. Stretching helps in the morning. She cannot stand or sit for a very long time. +Nocturnal pain every night. Sleep study did not reveal TAB. Neurologist felt pain at night was waking her up from sleep. Dactylitis right or left 2nd finger every few months for a day. Exacerbated with activity. No hx of PsO, IBD or family history, iritis. Uses 800mg daily and tylenol 500mg to 1000mg PRN She had an injection site reaction to enbrel. Right She thinks her father has but it is not confirmed. Father has FMS. 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 Rarely drinks alcohol. Smoked cigarettes 12-13 years 1 pack a week quit 2018 and vaping until 2022. [facility] Medical History Mood disorder Rash Diarrhea Pain management Abdominal cramping Encounter for routine gynecological examination Encounter for general adult medical examination with abnormal findings Headache syndrome Encounter for control pills maintenance PTSD (post-traumatic stress disorder) Chronic pain Anxiety, generalized Depression, major, recurrent Ankylosing spondylitis Surgical History History of carpal tunnel surgery of right wrist History of wisdom tooth extraction Hx of cholecystectomy Hx of colonoscopy (~2011) Family History Father Obesity HTN (hypertension) Mother Asthma Obesity HTN (hypertension) Atrial fibrillation Stomach problems Brother No problems noted. 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 Good respiratory effort Skin: hives on face and arms MSK: No tenderness of small joints in her hands. 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 Good range of motion of upper extremities. She has soft tissue swelling left MTPs with hives present around her foot. Tender bilateral trochanteric bursae. Tender right groin region. Negative JESUS. Tender to palpate bilateral SI joints and lumbar spine. Tender right gluteal muscles. Good lumbar flexion.. Tender cervical spine and paraspinal muscles and trapezius. Good cervical range of motion. Assessment & Plan Assessment & Plan (1) Ankylosing spondylitis: Comment: With inflammatory back pain, history of dactylitis and polyarthritis controlled on Humira. She has developed urticaria after last Humira injection 3 weeks ago. She has had no change in urticaria rash affecting her face and extremities on prednisone 60 mg for 5 days, chronic regimen of antihistamine, topical Benadryl and Benadryl 25-50 mg q.h.s.. We discussed using a longer course of prednisone and contacting her commercial designer to assist in managing urticaria. Code(s): M45.9 - Ankylosing spondylitis of unspecified sites in spine Category: Medical Qualifiers: Ankylosing spondylitis location: lumbar region Qualified Code(s): M45.6 - Ankylosing spondylitis lumbar region Plan: Prednisone course prescribed Patient will call public health microbiologist Dr. Arango's office for an appointment Baseline labs and x-rays ordered Return to clinic in 1 month. We will discuss DMARD therapy at follow-up visit. She will call office if back pain worsens off of Humira. I will consider alternative NSAID prescription. (2) Greater trochanteric bursitis of both hips: Comment: Bilateral. Pain is uncontrolled. Failed PT and bilateral trochanteric bursa injections in the past. She is agreeable to try physical therapy again. Code(s): M70.61 - Trochanteric bursitis, right hip; M70.62 - Trochanteric bursitis, left hip Category: Medical Plan: PT ordered Continue to use ibuprofen and Tylenol as needed Return to clinic in 1 month. (3) Muscle strain of right gluteal region: Comment: We discussed conservative management. Code(s): S76.011A - Strain of muscle, fascia and tendon of right hip, initial encounter Category: Medical Qualifiers: Encounter type: initial encounter Qualified Code(s): S76.011A - Strain of muscle, fascia and tendon of right hip, initial encounter Plan: PT ordered. She will continue to use ibuprofen and Tylenol as needed Return to clinic in 1 month. Orders: Orders Complete Blood Count Auto Diff Today M45.6 - Ankylosing spondylitis lumbar region XR sacroiliac joint min 3V Today M45.6 - Ankylosing spondylitis lumbar region Hepatitis B,C Profile Today M45.6 - Ankylosing spondylitis lumbar region T Spot TB Today M45.6 - Ankylosing spondylitis lumbar region Alanine Aminotransferase Today M45.6 - Ankylosing spondylitis lumbar region Aspartate Amino Transferase Today M45.6 - Ankylosing spondylitis lumbar region C Reactive Protein Today M45.6 - Ankylosing spondylitis lumbar region Creatinine Today M45.6 - Ankylosing spondylitis lumbar region Erythrocyte Sedimentation Rate Today M45.6 - Ankylosing spondylitis lumbar region XR lumbar spine 2-3V Today M45.6 - Ankylosing spondylitis lumbar region XR cervical spine 3V Today M45.6 - Ankylosing spondylitis lumbar region Medications: New prednisone Take 3 tablets BID for 2 weeks, 3 tablets AM and 2 tablets PM 1 week, 2 tablets BID 1 week, 2 tablets in AM and 1 tablet PM for 1 week, 1 tablet BID 1 week then 1 tablet daily 1 week then stop. Take prednisone with food. 10 mg PO DIRECTED 189 tabs 0RF Coding Level of Care Code New Pt Level 4 ([id number]) Diagnoses Ankylosing spondylitis of lumbar region M45.6 Ankylosing spondylitis location: lumbar region Greater trochanteric bursitis of both hips M70.61; M70.62 Muscle strain of right gluteal region, initial encounter S76.011A Encounter type: initial encounter
== END 2024-06-19 12:17 | disposition home or self-care (01) ==
PROVIDERS: PCP Internal Medicine; Visit Provider Internal Medicine Rheumatology
DX: M45.6 Ankylosing spondylitis lumbar region (principal); M70.61 Trochanteric bursitis, right hip; M70.62 Trochanteric bursitis, left hip; S76.011A Strain of muscle, fascia and tendon of right hip, initial encounter
CPT/HCPCS: 99204

== ENCOUNTER 2024-07-20 10:26 | Outpatient (REF) | payer BC, SELFPAY ==
--- NOTE | ~2024-07-20 | XR_ITS ---
. EXAMINATION: XR SACROILIAC JOINTS CLINICAL INFORMATION: M45.6 - Ankylosing spondylitis lumbar region COMPARISON: None available. TECHNIQUE: 3 views of the sacroiliac joints FINDINGS: Bones and soft tissues are normal. No fracture. Alignment is anatomic. Sacroiliac joint spaces are well-maintained without erosions or surrounding sclerosis. Spina bifida occulta S1, congenital.. XR/XR sacroiliac joint min 3V IMPRESSION: Normal sacroiliac joints. Electronically signed by: Tc Thao MD 07/23/2024 10:14 AM KENJI WILSON
--- NOTE | ~2024-07-20 | XR_ITS ---
EXAMINATION: XR LUMBOSACRAL SPINE CLINICAL INFORMATION: M45.6 - Ankylosing spondylitis lumbar region COMPARISON: August 16, 2016. TECHNIQUE: Three views of the lumbosacral spine. FINDINGS: No acute cortical disruption or malalignment. Spina bifida occulta S1. No lytic or blastic lesions. XR/XR lumbar spine 2-3V IMPRESSION: No acute fracture or listhesis. Electronically signed by: Tc Thao MD 07/23/2024 10:13 AM KENJI WILSON
--- NOTE | ~2024-07-20 | XR_ITS ---
.EXAMINATION: XR CERVICAL SPINE CLINICAL INFORMATION: Cervicalgia COMPARISON: August 16, 2016 TECHNIQUE: 3 views of the cervical spine were obtained. FINDINGS: Craniocervical junction is intact. No acute cortical disruption or gross malalignment. Loss of the physiologic lordosis. No lytic or blastic lesions. Upper airway is patent. XR/XR cervical spine 2V IMPRESSION: No acute fracture or listhesis. Loss of physiologic lordosis. Electronically signed by: Tc Thao MD 07/23/2024 10:19 AM KENJI WILSON
--- OUTSIDE RECORDS SUMMARY | 2024-07-20 11:49 | XMS_ITS | Clinical Summary ---
Author Organization [facility] Address [address] [place] [address] Care Team Providers Care Chief Deputy Coroner Name Role Phone MikaMelonie Barajas BRONWYN Primary Care Provider Surgical History Surgery Date Site/Laterality Comments CHOLECYSTECTOMY 2007 PROCEDURE: HISTORICAL CHOLECYSTECTOMY WISDOM TOOTH EXTRACTION PROCEDURE: HISTORICAL WISDOM TEETH EXTRACTION COLONOSCOPY 02/13/2010 PROCEDURE: [place] COLONOSCOPY FLX DX W/COLLJ SPEC WHEN PFRMD; COMMENT: Normal Medical History Medical History Date Comments Bipolar affective disorder (CMS/HCC) DX:Bipolar affective disorder (HCC); COMMENT: Dr. Angélica Hebert OCD (obsessive compulsive disorder) DX:OCD (obsessive compulsive disorder) Chronic headache disorder 03/15/2012 DX:Chr onic headache disorder Family History Medical History Relation Name Comments Breast cancer Maternal Grandmother Relation Name Status Comments Brother Alive healthy Father Alive depression Maternal Grandfather Maternal Grandmother breast cancer ?age Mother Alive depression, ast hma Paternal Grandfather [place] in 5 0's Paternal Grandmother DM, HTN Social History Tobacco Use Types Packs/Day Years Used Date Smoking Tobacco: Every Day Cigarettes Smokeless Tobacco: Never Alcohol Use Standard Drinks/Week Comments Yes 0 (1 standard drink = 0.6 oz pur e alcohol) Comments Unknown Sex and Gender Information Value Date Recorded Sex Assigned at Not on file Legal Sex Female 1:29 PM EST Gender Identity Not on file Sexual Orientation Not on file Obstetrics History Plan of Treatment Health Maintenance Due Date Last Done Comments Cervical Cancer Screening: Pap Smear 2010 DTaP,Tdap,and Td Vaccines (6 - Td or Tdap) 01/02/2012 01/01/2002, 09/03/1994, 01/17/1991, Additional history exists COVID-19 Vaccine ( season) 2024 Influenza Vaccine (#1) 2024 HIB Vaccines Completed 10/17/1990, 06/24, 04/25/1990 IPV Vaccines Completed 09/03/1994, 12/22, 10/17/1990, Additional history exists MMR Vaccines Completed 09/03/1994, 10/17/1990 Hepatitis B Vaccines Completed 01/19/2001, 08/18/2000, 07/21/2000 HPV Vaccines Aged Out No longer eligi ble based on patient's age to complete this topic Hepatitis A Vaccines Aged Out No long er eligible based on patient's age to complete this topic Meningococcal ACWY Vaccine Aged Out N o longer eligible based on patient's age to complete this topic Meningococcal B Vacine Aged Out No lo nger eligible based on patient's age to complete this topic Pneumococcal Vaccine: Pediatrics (0 to 5 Years) and At-Risk Patients (6 to 64 Years) Aged Out No longer eligible based on patient's age to complete this topic RSV Immunization Patients Under 20 months Aged Out No longer eligible based on patient's age to complete this topic Varicella Vaccines Aged Out No longer eligible based on patient's age to complete this topic Care Teams Chief Deputy Coroner Relationship Specialty Start Date End Date Melonie Ji FNP [address] [place] [address] Dr [place], [place] [id number] PCP - General Family Medicine 02/07/19
== END 2024-07-20 10:27 | disposition home or self-care (01) ==
LOC: HO.HMGCX 10:26
PROVIDERS: PCP Internal Medicine; Visit Provider Internal Medicine Rheumatology
DX: Z00.01 Encounter for general adult medical examination with abnormal findings (principal); M45.6 Ankylosing spondylitis lumbar region; F43.10 Post-traumatic stress disorder, unspecified; F41.1 Generalized anxiety disorder; K58.2 Mixed irritable bowel syndrome; K59.01 Slow transit constipation; F11.20 Opioid dependence, uncomplicated; R53.81 Other malaise; Z79.01 Long term (current) use of anticoagulants; Z82.49 Family history of ischemic heart disease and other diseases of the circulatory system
CPT/HCPCS: 72040; 72100; 72202; 96127

== ENCOUNTER → 2024-07-20 10:30 | Outpatient (BNV) | payer BC, SELFPAY | PROVIDERS: PCP Internal Medicine; Visit Provider Radiology Diagnostic Radiology | DX: M45.6 Ankylosing spondylitis lumbar region (principal); M54.2 Cervicalgia | CPT/HCPCS: 72040; 72100; 72202 ==

== ENCOUNTER 2024-07-20 11:05 | Outpatient (AMB) | payer BC, SELFPAY ==
[2024-07-20 11:12] VITALS: BP 130/76; PULSE 89; RESP 18; O2SAT 98; BMI 42.1
--- NOTE | 2024-07-20 11:12 | A.OFFPC_ITS ---
Vital Signs 07/20/24 11:12 Height 5 ft Weight 215 lb 8 oz BMI 42.1 BP 130/76 Blood Pressure Location Lt brachial Position Sitting Respiration 18 Pulse 89 Pulse Source Pulse Oximeter Pulse Oximetry (%) 98 Oxygen Delivery Method Room Air Intake Visit Reasons: Annual Allergies adalimumab [From Humira] Allergy (Mild, Verified 07/20/24 11:14) Rash itcing, with hives naproxen Allergy (Mild, Verified 07/20/24 11:14) hives etanercept [Enbrel] Adverse Reaction (Mild, Verified 07/20/24 11:14) injection site reaction methotrexate Adverse Reaction (Mild, Verified 07/20/24 11:14) rash, hairloss tizanidine Adverse Reaction (Mild, Verified 07/20/24 11:14) Unknown Medication List - Last Reconciled 07/20/24 by Jah Rodríguez MD ascorbate calcium (vitamin C) 500 mg PO DAILY biotin 5 mg PO DAILY cetirizine 20 mg (2 x 10 mg) PO BID 30 days chlorophyll copper complex 100 mg PO DAILY dicyclomine 20 mg (2 x 10 mg) PO QID 30 days [fish oil PO] lamotrigine 200 mg PO DAILY lamotrigine ER 50 mg PO DAILY linaclotide (Linzess) 72 mcg PO QAM [lions magda PO] llqfui-pojsrbry-jurhtjb 36,000-114,000- 180,000 unit (Creon) 2 caps PO BID loratadine (Claritin) 10 mg PO DAILY [magnesium PO] montelukast 10 mg PO DAILY 90 days multivitamin 1 tab PO DAILY norethindrone-e.estradiol-iron 1 mg-20 mcg (24)/75 mg (4) 1 tab PO DAILY [prebiotic PO DAILY] pregabalin 150 mg PO BID propranolol 20 mg PO BID PRN 90 days sennosides (senna) 25.8 mg PO BEDTIME tramadol 50 mg PO DAILY 90 days [vitamin A PO] [vitamin E PO DAILY] Tobacco use date assessed: 07/20/24 Dental Screening Dental Screen Date: 07/20/24 Did you have a dental visit in the last 12 months?: Yes Did you have a dental problem in the last 6 months where you did not have access to dental care?: No Was dental information given to patient?: Patient has dentist HPI Annual HPI Details Physical exam appointment - The patient is a 34 year old female pr esenting with follow-up for multiple ongoing health issues including allergic reaction, family history concerns, and hyperlipidemia. - Severe allergic reaction to Adalimumab (Humira) causing persistent urticaria since May following weekly injections, ceased on May 27. - Underwent prednisone treatment leading to common side effects including weight gain and overall malaise. - Diagnosed with influenza last week fur ther worsening malaise. - Labs dated June 19 indicate high serum LDL levels at 175 mg/dL. - Family history flagged for abdominal a ortic aneurysm prompts abdominal pain investigation. - Constipation managed with stool soften ers and suggested dietary modifications. Established with family dentist - Weight gain attributed to prednisone n oted, advising against reinitiation of weight loss medication until stabilization. - ankylosing spondylitis, takes tramadol for pain management Health Maintenance - Screening for abdominal aortic aneurys m scheduled via ultrasound. - Continual monitoring of hyperlipidemia . - Monitoring of recent influenza infecti on recovery and consideration of preventive measures for future viral infections. - Weight management discussion post-pred nisone treatment. 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 - Follow recommended regimen for constip ation including stool softeners and dietary changes. - Monitor abdominal symptoms and seek ca re if pain intensifies or persists. - Proceed with abdominal ultrasound as p lanned and discuss results in the next visit. - Continue monitoring and lifestyle adju stments for hyperlipidemia. - Follow up in three months or earlier i f any concerning symptoms arise. - Maintain a list of current medications and update if any changes occur. Review of Systems - General: No fever no chills - Neurological: No headaches no dizzin ess - Ear nose throat: No sore throat no hearing difficulty no ear pain - Cardiovascular: No syncope, no chest pain, no palpitations - Gastrointestinal: No nausea vomiting or diarrhea - Endocrine: No polyuria polydipsia no heat intolerance - Genitourinary: No dysuria - Skin: No new complaints Physical Exam General: Cooperative, healthy appearing, comfortable, no acute distress Orientation: Patient oriented x3 Head: Normal to inspection Ears: Within normal limit visually Nose: Normal external nose present Face and sinus: Normal facial exam, presence of hives Eyes: Appearance normal, extraocular movement intact pupils reactive Neck: Normal visual inspection and supple, reports weird pain down the neck Respiratory: Normal respiratory effort and able to speak in complete sentences. Clear to auscultation, no stridor Cardiovascular: S1 and S2 regular in rate and rhythm GI: Normal to inspection. Soft to palpation and nontender, reports feeling very bloated and distended Skin: Turgor normal Neuro: Patient oriented x3, motor sensory intact, balance intact, tandem pass Extremities: No acute findings [facility] Medical History (Updated 07/20/24 @ 11:53 by Jah Rodríguez MD) Encounter for general adult medical examination with abnormal findings Mood disorder Rash Diarrhea Pain management Abdominal cramping Encounter for routine gynecological examination Headache syndrome Encounter for control pills maintenance PTSD (post-traumatic stress disorder) Chronic pain Anxiety, generalized Depression, major, recurrent Ankylosing spondylitis Surgical History History of carpal tunnel surgery of right wrist History of wisdom tooth extraction Hx of cholecystectomy Hx of colonoscopy (~2011) Family History Father Obesity HTN (hypertension) Mother Asthma Obesity HTN (hypertension) Atrial fibrillation Stomach problems Brother No problems noted. 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 1. Little interest or pleasure in doing things: several days 2. Feeling down, depressed, or hopeless: several days 3. Trouble falling or staying asleep, or sleeping too much: several days 4. Feeling tired or having little energy: several days 5. Poor appetite or overeating: several days 6. Feeling bad about yourself - or that you are a failure or have let yourself or your family down: several days 7. Trouble concentrating on things, such as reading the newspaper or watching television: more than half the days 8. Moving or speaking so slowly that other people could have noticed. Or the opposite - being so fidgety or restless that you have been moving around a lot more than usual: several days 9. Thoughts that you would be better off or of hurting yourself in some way: not at all Total score: 9 Depression Screening Interpretation: Positive Depression Screening Follow-up: Existing condition and In treatment Depression Screening Done: Yes 01198 - PHQ-9 Billing: Yes Source: Developed by Drs. Rosas Ravi, Nelly Jacobs, Corey Wallace and colleagues, with an educational parveen from [employer]. Thrive Questionnaire Date Thrive assessed: 07/20/24 I am a: Patient What is your living situation today?: I have a place to live, but I am worried about losing it in the future Within the past 12 months, did the food you bought not last and you didn't have the money to get more?: Never true Within the past 12 months, did you worry whether your food would run out before you got money to buy more?: Never true Do you have trouble paying for medicines?: No Do you have trouble getting transportation to medical appointments?: No Do you have trouble paying your heating and electricity bill?: No Do you have trouble taking care of your child, family member or friend?: No Do you have trouble with day-to-day activities such as bathing, preparing meals, shopping, managing finances, etc.?: No Are you currently unemployed and looking for a job?: No Are you interested in more education?: No Please select the resources that you would like help with: None Currently or been in a relationship where the following occur: No concerns reported THRIVE Score: 1 AUDIT C Alcohol Use Questionnaire (AUDIT-C) 1. How often do you have a drink containing alcohol?: Monthly or less 2. How many drinks containing alcohol do you have on a typical day when you are drinking?: 1 or 2 3. How often do you have six or more drinks on one occasion?: Less than monthly Total Score: 2 Score Reviewed/Action Taken: Yes JESSICA-7 AMB Questionnaire JESSICA-7 Date JESSICA - 7 assessed: 07/20/24 Feeling nervous, anxious, or on edge: 1 = Several days Not being able to stop or control worryin = More than half the days Worrying too much about different things: 2 = More than half the days Trouble relaxin = Several days Being so restless that it is hard to sit still: 2 = More than half the days Becoming easily annoyed or irritable: 2 = More than half the days Feeling afraid as if something awful might happen: 1 = Several days Total JESSICA-7 score (0-4 normal; 5-9 mild; 10-14 moderate; 15-21 severe): 11 Source: Developed by Drs. Rosas Ravi, Nelly Jacobs, Corey Wallace and colleagues, with an educational parveen from [employer]. JESSICA-7 Assessment Billing JESSICA-7 Assessment Tool: JESSICA-7 Assessment 57702 Physical exam (Primary Care) Vital Signs: Last Vital Signs Pulse 89 07/20/24 11:12 Resp 18 07/20/24 11:12 BP 130/76 07/20/24 11:12 Pulse Ox 98 07/20/24 11:12 Oxygen Delivery Method Room Air 07/20/24 11:12 BMI result Body Mass Index 42.1 Tobacco/Smoking Status: Tobacco use Status Tobacco use date assessed 07/20/24 07/20/24 11:15 Patient Tobacco Use Status Former Tobacco user 07/20/24 11:15 e-Cigarette/Vaping Use Former Use 07/20/24 11:15 PHQ-9: PHQ-9 Score PHQ-9: Total score 9 07/20/24 11:15 Depression Screening Interpretation: Positive Depression Screening Follow-up: Existing condition and In treatment Thrive Assessment: Date of Thrive Assessment Date Thrive assessed 07/20/24 07/20/24 11:15 Currently or been in a relationship where the following occur: No concerns reported Coding Level of Care Code Est Pt Level 3 (16942) Est Pt Prev Care 18-39y(38174) Diagnoses Encounter for general adult medical examination with abnormal findings Z00.01 Family history of abdominal aortic aneurysm Z82.49 Ankylosing spondylitis of lumbar region M45.6 Ankylosing spondylitis location: lumbar region Environmental allergies Z91.09 PTSD (post-traumatic stress disorder) F43.10 Anxiety, generalized F41.1 Irritable bowel syndrome with both constipation and diarrhea K58.2 Irritable bowel syndrome type: with both diarrhea and constipation Constipation by delayed colonic transit K59.01 Medication side effect T88.7XXA Malaise R53.81 Moderate tramadol dependence F11.20 Additional Codes JESSICA-7 Assessment Billing - JESSICA-7 Assessment Tool: JESSICA-7 Assessment 72890 ([id number]) PHQ-9 - 44941 - PHQ-9 Billing: Yes ([id number]) Assessment & Plan Assessment & Plan (1) Encounter for general adult medical examination with abnormal findings: Code(s): Z00.01 - Encounter for general adult medical examination with abnormal findings Category: Medical (2) Family history of abdominal aortic aneurysm: Code(s): Z82.49 - Family history of ischemic heart disease and other diseases of the circulatory system Category: Medical (3) Ankylosing spondylitis: Comment: With inflammatory back pain, history of dactylitis and polyarthritis controlled on Humira. She has developed urticaria after last Humira injection 3 weeks ago. She has had no change in urticaria rash affecting her face and extremities on prednisone 60 mg for 5 days, chronic regimen of antihistamine, topical Benadryl and Benadryl 25-50 mg q.h.s.. 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 Code(s): M45.9 - Ankylosing spondylitis of unspecified sites in spine Category: Medical Qualifiers: Ankylosing spondylitis location: lumbar region Qualified Code(s): M45.6 - Ankylosing spondylitis lumbar region (4) Environmental allergies: Code(s): Z91.09 - Other allergy status, other than to drugs and biological substances Category: Medical (5) PTSD (post-traumatic stress disorder): Comment: Management through psychiatrist Andrew Byrne Code(s): F43.10 - Post-traumatic stress disorder, unspecified Category: Medical (6) Anxiety, generalized: Comment: Management through Psychiatry Code(s): F41.1 - Generalized anxiety disorder Category: Medical (7) IBS (irritable bowel syndrome): Code(s): K58.9 - Irritable bowel syndrome, unspecified Category: Medical Qualifiers: Irritable bowel syndrome type: with both diarrhea and constipation Qualified Code(s): K58.2 - Mixed irritable bowel syndrome (8) Constipation by delayed colonic transit: Code(s): K59.01 - Slow transit constipation Category: Medical (9) Medication side effect: Code(s): T88.7XXA - Unspecified adverse effect of drug or medicament, initial encounter Category: Medical (10) Malaise: Code(s): R53.81 - Other malaise Category: Medical (11) Moderate tramadol dependence: Code(s): F11.20 - Opioid dependence, uncomplicated Category: Medical Plan Physical exam appointment - The patient is a 34 year old female presenting with follow-up for multiple ongoing health issues including allergic reaction, family history concerns, and hyperlipidemia. - Severe allergic reaction to Adalimumab (Humira) causing persistent urticaria since May following weekly injections, ceased on May 27. - Underwent prednisone treatment leading to common side effects including weight gain and overall malaise. - Diagnosed with influenza last week further worsening malaise. - Labs dated June 19 indicate high serum LDL levels at 175 mg/dL. - Family history flagged for abdominal aortic aneurysm prompts abdominal pain investigation. - Constipation managed with stool softeners and suggested dietary modifications. Established with family dentist - Weight gain attributed to prednisone noted, advising against reinitiation of weight loss medication until stabilization. - ankylosing spondylitis, takes tramadol for pain management Health Maintenance - Screening for abdominal aortic aneurysm scheduled via ultrasound. - Continual monitoring of hyperlipidemia. - Monitoring of recent influenza infection recovery and consideration of preventive measures for future viral infections. - Weight management discussion post-prednisone treatment. 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 - Follow recommended regimen for constipation including stool softeners and dietary changes. - Monitor abdominal symptoms and seek care if pain intensifies or persists. - Proceed with abdominal ultrasound as planned and discuss results in the next visit. - Continue monitoring and lifestyle adjustments for hyperlipidemia. - Follow up in three months or earlier if any concerning symptoms arise. - Maintain a list of current medications and update if any changes occur. Orders: Orders US abdomen complete Today Z82.49 - Family history of ischemic heart disease and other diseases of the circulatory system Medications: Refilled tramadol 50 mg PO DAILY 90 tabs 0RF 90 days G44.89 - Other headache syndrome, K58.9 - Irritable bowel syndrome, unspecified, M45.9 - Ankylosing spondylitis of unspecified sites in spine, R52 - Pain, unspecified
--- OUTSIDE RECORDS SUMMARY | 2024-07-20 12:56 | XMS_ITS | Clinical Summary ---
Author Organization [facility] Address [address] [place] [address] Care Team Providers Care Government Affairs Researcher Name Role Phone MikaMelonei Barajas BRONWYN Primary Care Provider Surgical History Surgery Date Site/Laterality Comments CHOLECYSTECTOMY 2007 PROCEDURE: HISTORICAL CHOLECYSTECTOMY WISDOM TOOTH EXTRACTION PROCEDURE: HISTORICAL WISDOM TEETH EXTRACTION COLONOSCOPY 02/13/2010 PROCEDURE: [place] COLONOSCOPY FLX DX W/COLLJ SPEC WHEN PFRMD; [...] Mother Alive depression, ast hma Paternal Grandfather [place] in 5 0's Paternal Grandmother DM, HTN [...] age to complete this topic Care Teams Government Affairs Researcher Relationship Specialty Start Date End Date Melonie Ji FNP [address] [place] [address] Dr [place], [place] [id number] PCP - General Family Medicine 02/07/19
== END 2024-07-20 13:34 | disposition home or self-care (01) ==
PROVIDERS: PCP Internal Medicine; Visit Provider Internal Medicine
DX: Z00.00 Encounter for general adult medical examination without abnormal findings (principal); M45.6 Ankylosing spondylitis lumbar region; F11.20 Opioid dependence, uncomplicated; F43.10 Post-traumatic stress disorder, unspecified; F41.1 Generalized anxiety disorder; Z82.49 Family history of ischemic heart disease and other diseases of the circulatory system; K58.2 Mixed irritable bowel syndrome; Z91.09 Other allergy status, other than to drugs and biological substances; K59.01 Slow transit constipation; T88.7XXA Unspecified adverse effect of drug or medicament, initial encounter; R53.81 Other malaise

== ENCOUNTER 2024-08-30 07:45 | Outpatient (REF) | payer BC, SELFPAY ==
--- OUTSIDE RECORDS SUMMARY | 2024-08-30 09:00 | XMS_ITS | Clinical Summary ---
Author Organization [facility] Address [address] [place] [address] Care Team Providers Care Research Dairy Farm Supervisor Name Role Phone Melonie Ji BRONWYN Primary Care Provider Surgical History Surgery Date Site/Laterality Comments CHOLECYSTECTOMY 2007 PROCEDURE: HISTORICAL CHOLECYSTECTOMY WISDOM TOOTH EXTRACTION PROCEDURE: HISTORICAL WISDOM TEETH EXTRACTION COLONOSCOPY 02/13/2010 PROCEDURE: [place] COLONOSCOPY FLX DX W/COLLJ SPEC WHEN PFRMD; COMMENT: Normal Medical History Medical History Date Comments Bipolar affective disorder ( [facility]/HCC V24, CMS/HCC V28) DX:Bipolar affective disorde r ([facility]); COMMENT: Dr. Angélica Hebert OCD (obsessive compulsive disorder) DX:OCD (obsessive compulsive disorder) Chronic headache disorder 03/15/2012 DX:Chr onic headache disorder Family History Medical History Relation Name Comments Breast cancer Maternal Grandmother Relation Name Status Comments Brother Alive healthy Father Alive depression Maternal Grandfather Maternal Grandmother breast cancer ?age Mother Alive depression, ast hma Paternal Grandfather [place] in 5 0's Paternal Grandmother DM, HTN [...] age to complete this topic Care Teams Research Dairy Farm Supervisor Relationship Specialty Start Date End Date Melonie Ji FNP [address] [place] [address] Dr Lewis, [place] [address] PCP - General Family Medicine 02/07/19
[2024-08-30 17:34] LABS: MANUAL DIFF FLAG NO
[2024-08-30 17:48] LABS: Basophils Percent Auto 0.4 % (0-2); Eosinophils Absolute Auto 0.2 X10*3/uL (0.0-0.4); Eosinophils Percent Auto 3.2 % (0-4); Hematocrit 41.7 % (37.0-47.0); Hemoglobin 14.2 g/dl (12.0-16.0); Imm Gran Abs Auto 0.02 X10*3/uL (0.00-0.03); Imm Gran Pct Auto 0.3 % (0.0-0.4); Lymphocytes Absolute Auto 2.2 X10*3/uL (1.2-4.9); Lymphocytes Percent Auto 29.4 % (20-40); Mean Corpuscular HGB Conc 34.1 g/dl (31.0-35.0); Mean Corpuscular Hemoglobin 30.7 pg (27.0-33.0); Mean Corpuscular Volume 90.3 fL (80.0-98.0); Mean Platelet Volume 8.7 fL (9.4-12.3); Monocytes Absolute Auto 0.4 X10*3/uL (0.1-1.2); Monocytes Percent Auto 5.1 % (2-11); Neutrophils Absolute Auto 4.6 x10*3/uL (2.0-8.3); Neutrophils Percent Auto 61.6 % (45-73); Platelet Count 326 X10*3/uL (160-400); Red Blood Count 4.62 X10*6/uL (4.20-5.50); Red Cell Distribution Width 12.6 % (11.0-16.0); White Blood Count 7.5 X10*3/uL (4.8-10.8)
[2024-08-30 18:07] LABS: Alanine Aminotransferase 19 U/L (0-31); Aspartate Amino Transferase 19 U/L (5-31); C Reactive Protein 0.58 mg/dL (< or = 0.50); Estimated Glomerular Filt Rate > 60
[2024-08-30 18:50] LABS: Erythrocyte Sedimentation Rate 21 MM/HR (0-20)
== END 2024-08-30 07:46 | disposition home or self-care (01) ==
LOC: HO.HKASLDS 07:45
PROVIDERS: Referring Provider Allergy & Immunology; Visit Provider Internal Medicine Rheumatology
DX: L50.0 Allergic urticaria (principal); Z79.899 Other long term (current) drug therapy; Z79.60 Long term (current) use of unspecified immunomodulators and immunosuppressants; L50.1 Idiopathic urticaria; R09.82 Postnasal drip; J30.9 Allergic rhinitis, unspecified
CPT/HCPCS: 36415; 82565; 83520; 84450; 84460; 85025; 85652; 86140

== ENCOUNTER 2024-08-30 07:45 | Outpatient (AMB) | payer BC, SELFPAY ==
--- NOTE | 2024-08-30 07:46 | MHC.OFFVIS ---
Vital Signs 08/30/24 07:47 Height 5 ft Weight 215 lb BMI 42.0 BP 126/70 Blood Pressure Location Lt brachial Position Sitting Pulse 81 Pulse Source Pulse Oximeter Pulse Oximetry (%) 98 Oxygen Delivery Method Room Air Intake Visit Reasons: Follow up Intake Note: Patient presents for ankylosing spondylitis. Rash from humira. Accompanied by: Self / Same As Patient Allergies adalimumab [From Humira] Allergy (Mild, Verified 08/30/24 07:52) Rash itcing, with hives naproxen Allergy (Mild, Verified 08/30/24 07:52) hives etanercept [Enbrel] Adverse Reaction (Mild, Verified 08/30/24 07:52) injection site reaction methotrexate Adverse Reaction (Mild, Verified 08/30/24 07:52) rash, hairloss tizanidine Adverse Reaction (Mild, Verified 08/30/24 07:52) Unknown HPI HPI Follow up: Details: Hives are still persistent but improved. Lasts no more than a day but reoccurs the next day. Pain knees is knee. She is sore. Increase pain in hips and back. MS 15 minutes. Wakes up with hip pain. Rings are tight during the day. [facility] Medical History Encounter for general adult medical examination with abnormal findings Mood disorder Rash Diarrhea Pain management Abdominal cramping Encounter for routine gynecological examination Headache syndrome Encounter for control pills maintenance PTSD (post-traumatic stress disorder) Chronic pain Anxiety, generalized Depression, major, recurrent Ankylosing spondylitis Surgical History History of carpal tunnel surgery of right wrist History of wisdom tooth extraction Hx of cholecystectomy Hx of colonoscopy (~2011) Family History Father Obesity HTN (hypertension) Mother Asthma Obesity HTN (hypertension) Atrial fibrillation Stomach problems Brother No problems noted. 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 Good respiratory effort Skin: hives on arms MSK: No tenderness of small joints in her hands. She is able to curtain cutter hand my hands but they are weak. Normal range of motion of upper extremities. Tender right trochanteric bursae. Tender right groin region. Negative JESUS. Tender to palpate bilateral SI joints and lumbar spine. Limited full lumbar flexion. Tender cervical spine paraspinal muscles and trapezius. Good cervical range of motion. Assessment & Plan Assessment & Plan (1) Ankylosing spondylitis: Comment: She has developed increased polyarthralgias and stiffness off of Humira. Chronic idiopathic urticaria exacerbated after Humira is improving with antihistamine treatment. She follows with x ray examiner of aircraft and immunology group HOWARD Arango. X-rays and labs reviewed with patient. She has congenital defects spina bifida noted on L-spine and SI joint x-ray without any arthritis noted. C-spine x-ray reveals loss of normal lordosis consistent with myofascial strain contributing to her pain. We discussed next steps in treatment. Discuss side effects and benefits and monitoring on Cosentyx. She agreed to try meloxicam this visit to help reduce her pain and stiffness. Rheumatology history: With inflammatory back pain, history of dactylitis and polyarthritis previously controlled on Humira but she developed diffuse hives after a dose. Celebrex caused stomach upset in the past. Code(s): M45.9 - Ankylosing spondylitis of unspecified sites in spine Category: Medical Qualifiers: Ankylosing spondylitis location: lumbar region Qualified Code(s): M45.6 - Ankylosing spondylitis lumbar region Plan: Cosentyx PA with loading dose week 0, 1, 2, 3, 4 then maintenance every 4 weeks. She will need nursing visit for 1st dose administration in office and labs 4 weeks after: CBC, creatinine, AST, ALT Start Meloxicam 15 mg daily PT ordered for neck, back and lower extremity strengthening Labs ordered for disease and drug monitoring Return to clinic in 3 months (2) Greater trochanteric bursitis of both hips: Comment: Right worse than left. Pain is uncontrolled. Failed PT and bilateral trochanteric bursa injections in the past. She is agreeable to try physical therapy again. Code(s): M70.61 - Trochanteric bursitis, right hip; M70.62 - Trochanteric bursitis, left hip Category: Medical Plan: PT ordered (3) Myofascial neck pain: Code(s): M54.2 - Cervicalgia Category: Medical Plan: Use TENs unit at home Continue apply heat to neck PT ordered for neck strengthening Return to clinic in 3 months Orders: Orders Aspartate Amino Transferase Today Z79.60 - penitentiary (current) use of unspecified immunomodulators and immunosuppressants Complete Blood Count Auto Diff Today Z79.60 - termite exterminator (current) use of unspecified immunomodulators and immunosuppressants Creatinine Today Z79.60 - penitentiary (current) use of unspecified immunomodulators and immunosuppressants Erythrocyte Sedimentation Rate Today Z79.899 - Other terminal supervisor (current) drug therapy PT Evaluation and Treatment Today M45.6 - Ankylosing spondylitis lumbar region, M54.2 - Cervicalgia, M70.61 - Trochanteric bursitis, right hip, M70.62 - Trochanteric bursitis, left hip Alanine Aminotransferase Today Z79.60 - termite exterminator (current) use of unspecified immunomodulators and immunosuppressants C Reactive Protein Today Z79.899 - Other terminal supervisor (current) drug therapy Medications: New meloxicam Take with food 15 mg PO DAILY 90 tabs 1RF Coding Level of Care Code Est Pt Level 4 (21851) Complex EM visit Add On G2211 Diagnoses Ankylosing spondylitis of lumbar region M45.6 Ankylosing spondylitis location: lumbar region Greater trochanteric bursitis of both hips M70.61; M70.62 Myofascial neck pain M54.2
[2024-08-30 07:47] VITALS: BP 126/70; PULSE 81; O2SAT 98; BMI 42.0
--- OUTSIDE RECORDS SUMMARY | 2024-08-30 07:50 | XMS_ITS | Clinical Summary ---
Author Organization [facility] Address [address] [place] [address] Care Team Providers Care Criminal Justice Lawyer Name Role Phone Melonie Ji BRONWYN Primary Care Provider Surgical History Surgery Date Site/Laterality Comments CHOLECYSTECTOMY 2007 PROCEDURE: HISTORICAL CHOLECYSTECTOMY WISDOM TOOTH EXTRACTION PROCEDURE: HISTORICAL WISDOM TEETH EXTRACTION COLONOSCOPY 02/13/2010 PROCEDURE: [place] COLONOSCOPY FLX DX W/COLLJ SPEC WHEN PFRMD; COMMENT: Normal Medical History Medical History Date Comments Bipolar affective disorder ( [facility]/HCC V24, [facility]/HCC V28) DX:Bipolar affective disorde r ([facility]); COMMENT: Dr. Angélica Hebert OCD (obsessive compulsive disorder) DX:OCD (obsessive compulsive disorder) Chronic headache disorder 03/15/2012 DX:Chr onic headache disorder Family History Medical History Relation Name Comments Breast cancer Maternal Grandmother Relation Name Status Comments Brother Alive healthy Father Alive depression Maternal Grandfather Maternal Grandmother breast cancer ?age Mother Alive depression, ast hma Paternal Grandfather [place] in 5 0's Paternal Grandmother DM, HTN [...] COVID-19 Vaccine ( season) 2024 Influenza Vaccine (Season Ended) 2025 HIB Vaccines Completed 10/17/1990, 06/24, 04/25/1990 IPV [...] age to complete this topic Meningococcal B Vaccine Aged Out No l onger eligible based on patient's age to complete [...] age to complete this topic Care Teams Criminal Justice Lawyer Relationship Specialty Start Date End Date Melonie Ji FNP [address] [place] [address] Dr Lewis, [place] [address] PCP - General Family Medicine 02/07/19
== END 2024-08-30 08:35 | disposition home or self-care (01) ==
PROVIDERS: PCP Internal Medicine; Visit Provider Internal Medicine Rheumatology
DX: M45.6 Ankylosing spondylitis lumbar region (principal); M70.61 Trochanteric bursitis, right hip; M70.62 Trochanteric bursitis, left hip; M54.2 Cervicalgia
CPT/HCPCS: 99214

== ENCOUNTER 2024-09-21 08:22 | Outpatient (REF) | payer BC, SELFPAY ==
--- NOTE | ~2024-09-21 | US_ITS ---
EXAMINATION: US ABDOMEN ANEURYSM SCREENING HISTORY: Z82.49 - Family history of AAA TECHNIQUE: Ultrasound of the abdominal aorta was performed with color flow and spectral imaging. COMPARISON: There are no prior studies for comparison. FINDINGS: Real-time grayscale ultrasound imaging was performed and reviewed. Proximal abdominal aorta measures 2.0 x 1.8 cm Mid abdominal aorta measures 2.4 x 2.5 cm Distal abdominal aorta measures 1.9 x 1.8cm. Left proximal iliac artery measures 1.1 x 1.0 cm. Right proximal iliac artery measures 0.3 x 0.9cm. US/US abdominal aortic aneurysm IMPRESSION: No evidence of an abdominal aortic aneurysm. Electronically signed by: Rosas Reyes MD 09/21/2024 09:07 AM EDT
--- OUTSIDE RECORDS SUMMARY | 2024-09-21 08:41 | XMS_ITS | Clinical Summary ---
Author Organization [facility] Address [address] [place] [address] Care Team Providers Care Adult Daycare Coordinator Name Role Phone Melonie Ji BRONWYN Primary Care Provider Surgical History Surgery Date Site/Laterality Comments CHOLECYSTECTOMY 2007 PROCEDURE: HISTORICAL CHOLECYSTECTOMY WISDOM TOOTH EXTRACTION PROCEDURE: HISTORICAL WISDOM TEETH EXTRACTION COLONOSCOPY 02/13/2010 PROCEDURE: [place] COLONOSCOPY FLX DX W/COLLJ SPEC WHEN PFRMD; COMMENT: Normal Medical History Medical History Date Comments Bipolar affective disorder ( [facility]/HCC V24, CMS/HCC V28) DX:Bipolar affective disorde r ([facility]); COMMENT: Dr. Angélica Hebert OCD (obsessive compulsive disorder) DX:OCD (obsessive compulsive disorder) Chronic headache disorder 03/15/2012 DX:Chr onic headache disorder Family History Medical History Relation Name Comments Breast cancer Maternal Grandmother Relation Name Status Comments Brother Alive healthy Father Alive depression Maternal Grandfather Maternal Grandmother breast cancer ?age Mother Alive depression, ast hma Paternal Grandfather [place] in 5 0's Paternal Grandmother DM, HTN [...] age to complete this topic Care Teams Adult Daycare Coordinator Relationship Specialty Start Date End Date Melonie Ji FNP [address] [place] [address] Dr Lewis, [place] [address] PCP - General Family Medicine 02/07/19
== END 2024-09-21 08:23 | disposition home or self-care (01) ==
LOC: HO.HMGCX 08:22
PROVIDERS: PCP Internal Medicine; Visit Provider Internal Medicine
DX: Z13.6 Encounter for screening for cardiovascular disorders (principal); Z82.49 Family history of ischemic heart disease and other diseases of the circulatory system
CPT/HCPCS: 76706

== ENCOUNTER → 2024-09-21 08:24 | Outpatient (BNV) | payer BC, SELFPAY | PROVIDERS: PCP Internal Medicine; Visit Provider Radiology Diagnostic Radiology | DX: Z82.49 Family history of ischemic heart disease and other diseases of the circulatory system (principal) | CPT/HCPCS: 76706 ==

== ENCOUNTER → 2024-10-04 10:55 | Outpatient (BNVA) | payer BC, SELFPAY | PROVIDERS: PCP Internal Medicine; Visit Provider Internal Medicine Rheumatology ==

== ENCOUNTER 2024-10-12 07:49 | Outpatient (AMB) | payer BC, SELFPAY ==
--- OUTSIDE RECORDS SUMMARY | 2024-10-12 07:52 | XMS_ITS | Clinical Summary ---
Author Organization [facility] Address [address] [place] [address] Care Team Providers Care Oven Dauber Name Role Phone Melonie Ji BRONWYN Primary Care Provider Surgical History Surgery Date Site/Laterality Comments CHOLECYSTECTOMY 2007 PROCEDURE: HISTORICAL CHOLECYSTECTOMY WISDOM TOOTH EXTRACTION PROCEDURE: HISTORICAL WISDOM TEETH EXTRACTION COLONOSCOPY 02/13/2010 PROCEDURE: [place] COLONOSCOPY FLX DX W/COLLJ SPEC WHEN PFRMD; COMMENT: Normal Medical History Medical History Date Comments Bipolar affective disorder ( [facility]/HCC V24, CMS/HCC V28) DX:Bipolar affective disorde r ([facility]); COMMENT: Dr. Angélica Hebert OCD (obsessive compulsive disorder) DX:OCD (obsessive compulsive disorder) Chronic headache disorder 03/15/2012 DX:Chr onic headache disorder Family History Medical History Relation Name Comments Breast cancer Maternal Grandmother Relation Name Status Comments Brother Alive healthy Father Alive depression Maternal Grandfather Maternal Grandmother breast cancer ?age Mother Alive depression, ast hma Paternal Grandfather [place] in 5 0's Paternal Grandmother DM, HTN [...] age to complete this topic Care Teams Oven Dauber Relationship Specialty Start Date End Date Melonie Ji FNP [address] [place] [address] Dr Lewis, [place] [address] PCP - General Family Medicine 02/07/19
[2024-10-12 07:57] VITALS: BP 122/74; PULSE 76; TEMP 37.2; O2SAT 97; BMI 41.6
--- NOTE | 2024-10-12 07:57 | A.OFFPC_ITS ---
Vital Signs 10/12/24 07:57 Height 5 ft Weight 213 lb BMI 41.6 BP 122/74 Blood Pressure Location Rt brachial Position Sitting Pulse 76 Pulse Source Pulse Oximeter Temp 99.0 F Temp Source Oral Pulse Oximetry (%) 97 Intake Visit Reasons: 3m follow up Parlor Chaperone Required: No Accompanied by: Self / Same As Patient Allergies adalimumab [From Humira] Allergy (Mild, Verified 10/12/24 07:58) Rash itcing, with hives naproxen Allergy (Mild, Verified 10/12/24 07:58) hives etanercept [Enbrel] Adverse Reaction (Mild, Verified 10/12/24 07:58) injection site reaction methotrexate Adverse Reaction (Mild, Verified 10/12/24 07:58) rash, hairloss tizanidine Adverse Reaction (Mild, Verified 10/12/24 07:58) Unknown Medication List - Last Reconciled 10/12/24 by Jah Rodríguez MD ascorbate calcium (vitamin C) 500 mg PO DAILY biotin 5 mg PO DAILY cetirizine 20 mg (2 x 10 mg) PO BID 30 days chlorophyll copper complex 100 mg PO DAILY dicyclomine 20 mg (2 x 10 mg) PO QID 30 days [fish oil PO] lamotrigine 200 mg PO DAILY lamotrigine 50 mg PO DAILY levocetirizine (Xyzal) 5 mg PO DAILY linaclotide (Linzess) 72 mcg PO QAM [lions magda PO] gbbdni-hxsxsjdy-tmwxawb 36,000-114,000- 180,000 unit (Creon) 2 caps PO BID loratadine (Claritin) 10 mg PO DAILY [magnesium PO] montelukast 10 mg PO DAILY 90 days multivitamin 1 tab PO DAILY norethindrone-e.estradiol-iron 1 mg-20 mcg (24)/75 mg (4) 1 tab PO DAILY phentermine 15 mg PO DAILY [prebiotic PO DAILY] pregabalin 150 mg PO BID secukinumab (Cosentyx Pen) 150 mg subcut Q4W secukinumab (Cosentyx Pen) 150 mg subcut QWEEK 4 weeks sennosides (senna) 25.8 mg PO BEDTIME tramadol 50 mg PO DAILY 90 days [vitamin A PO] [vitamin E PO DAILY] Tobacco use date assessed: 02/28/25 Dental Screening Dental Screen Date: 07/20/24 HPI 3m follow up HPI Details History - The patient is a 34-year-old female pr esenting with acute diarrhea and viral illness symptoms. - Diarrhea began yesterday afternoon or last night, presenting with recurrent episodes. - Patient denies vomiting but notes the presence of a low-grade fever, stating a recorded temperature of 99?F. - Reports tingling but denies chills. - Recently commenced treatment with Cose ntyx for ankylosing spondylitis, which has led to increased soreness. - Patient is also on Lyrica and tramadol for pain management associated with ankylosing spondylitis and IBS. - Expresses frustration with weight mamadou gemadelfo, despite counting calories and tracking intake diligently. - Reports a weight loss of two pounds. - Requests refill for pregabalin and ind icates concurrent use of phentermine for obesity management. - Allergies are managed with Claritin an d montelukast. Problem List - Viral Gastroenteritis - Ankylosing Spondylitis - Irritable Bowel Syndrome (IBS) - Allergic Rhinitis - Obesity Patient Instructions - Drink plenty of fluids, such as Gatora de or Pedialyte, to ensure hydration. - Rest at home for the day to aid recove ry. - Monitor symptoms and if diarrhea persi sts, contact for further advice. - Continue tracking food intake and enga ge in light activities like yoga. - Follow up to check for test results vi a the patient portal. Review of Systems - Neurological: No headaches no dizziness - Ear nose throat: no hearing difficulty no ear pain - Cardiovascular: No syncope, no chest pain, no palpitations - Gastrointestinal: Mild abdominal cramping present - Endocrine: No polyuria polydipsia no heat intolerance - Genitourinary: No dysuria , no blood in urine Physical Exam General: No acute distress HEENT: Sore throat Neck: Supple Respiratory system: Able to talk in full sentences, no audible wheeze Cardiovascular: S1-S2 regular in rate and rhythm Gastrointestinal: Diarrhea since yesterday afternoon bowel sounds positive Extremities: No new findings HUMAN FACTORS SPECIALIST: Alert awake oriented x3 motor sensory intact Skin: Normal turgor [facility] Medical History Encounter for general adult medical examination with abnormal findings Mood disorder Rash Diarrhea Pain management Abdominal cramping Encounter for routine gynecological examination Headache syndrome Encounter for control pills maintenance PTSD (post-traumatic stress disorder) Chronic pain Anxiety, generalized Depression, major, recurrent Ankylosing spondylitis Surgical History History of carpal tunnel surgery of right wrist History of wisdom tooth extraction Hx of cholecystectomy Hx of colonoscopy (~2011) Family History Father Obesity HTN (hypertension) Mother Asthma Obesity HTN (hypertension) Atrial fibrillation Stomach problems Brother No problems noted. 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 Cognitive needs: No Hearing needs: No Vision needs: Yes Female Reproductive History Menstrual Age of Menarche: 11 Questionnaire Thrive Questionnaire Date Thrive assessed: 07/13/24 I am a: Patient What is your living situation today?: I have a place to live, but I am worried about losing it in the future Within the past 12 months, did the food you bought not last and you didn't have the money to get more?: Never true Within the past 12 months, did you worry whether your food would run out before you got money to buy more?: Never true Do you have trouble paying for medicines?: No Do you have trouble getting transportation to medical appointments?: No Do you have trouble paying your heating and electricity bill?: No Do you have trouble taking care of your child, family member or friend?: No Do you have trouble with day-to-day activities such as bathing, preparing meals, shopping, managing finances, etc.?: No Are you currently unemployed and looking for a job?: No Are you interested in more education?: No Please select the resources that you would like help with: None Currently or been in a relationship where the following occur: No concerns reported THRIVE Score: 1 JESSICA-7 AMB Questionnaire JESSICA-7 Date JESSICA - 7 assessed: 07/20/24 Source: Developed by Drs. Rosas Ravi, Nelly Jacobs, Corey Wallace and colleagues, with an educational parveen from [employer]. Physical exam (Primary Care) Vital Signs: Last Vital Signs Temp 99.0 F 10/12/24 07:57 Pulse 76 10/12/24 07:57 BP 122/74 10/12/24 07:57 Pulse Ox 97 10/12/24 07:57 BMI result Body Mass Index 41.6 Tobacco/Smoking Status: Tobacco use Status Tobacco use date assessed 07/20/24 10/12/24 08:02 Patient Tobacco Use Status Former Tobacco user 10/12/24 08:02 e-Cigarette/Vaping Use Former Use 10/12/24 08:02 Thrive Assessment: Date of Thrive Assessment Date Thrive assessed 07/13/24 10/12/24 08:02 Currently or been in a relationship where the following occur: No concerns reported Coding Level of Care Code Est Pt Level 4 (51857) Diagnoses Acute diarrhea R19.7 Sore throat J02.9 Ankylosing spondylitis of lumbar region M45.6 Ankylosing spondylitis location: lumbar region Environmental allergies Z91.09 Anxiety, generalized F41.1 Irritable bowel syndrome with both constipation and diarrhea K58.2 Irritable bowel syndrome type: with both diarrhea and constipation Malaise R53.81 Moderate tramadol dependence F11.20 Assessment & Plan Assessment & Plan (1) Acute diarrhea: Code(s): R19.7 - Diarrhea, unspecified Category: Medical (2) Sore throat: Code(s): J02.9 - Acute pharyngitis, unspecified Category: Medical (3) Ankylosing spondylitis: Comment: She has developed increased polyarthralgias and stiffness off of Humira. Chronic idiopathic urticaria exacerbated after Humira is improving with antihistamine treatment. She follows with in home sales consultant and immunology group HOWARD Arango. X-rays and labs reviewed with patient. She has congenital defects spina bifida noted on L-spine and SI joint x-ray without any arthritis noted. C-spine x-ray reveals loss of normal lordosis consistent with myofascial strain contributing to her pain. We discussed next steps in treatment. Discuss side effects and benefits and monitoring on Cosentyx. She agreed to try meloxicam this visit to help reduce her pain and stiffness. Rheumatology history: With inflammatory back pain, history of dactylitis and polyarthritis previously controlled on Humira but she developed diffuse hives after a dose. Celebrex caused stomach upset in the past. Code(s): M45.9 - Ankylosing spondylitis of unspecified sites in spine Category: Medical Qualifiers: Ankylosing spondylitis location: lumbar region Qualified Code(s): M45.6 - Ankylosing spondylitis lumbar region (4) Environmental allergies: Code(s): Z91.09 - Other allergy status, other than to drugs and biological substances Category: Medical (5) Anxiety, generalized: Comment: Management through Psychiatry Code(s): F41.1 - Generalized anxiety disorder Category: Medical (6) IBS (irritable bowel syndrome): Code(s): K58.9 - Irritable bowel syndrome, unspecified Category: Medical Qualifiers: Irritable bowel syndrome type: with both diarrhea and constipation Qualified Code(s): K58.2 - Mixed irritable bowel syndrome (7) Malaise: Code(s): R53.81 - Other malaise Category: Medical (8) Moderate tramadol dependence: Code(s): F11.20 - Opioid dependence, uncomplicated Category: Medical Plan History - The patient is a 34-year-old female presenting with acute diarrhea and viral illness symptoms. - Diarrhea began yesterday afternoon or last night, presenting with recurrent episodes. - Patient denies vomiting but notes the presence of a low-grade fever, stating a recorded temperature of 99?F. - Reports tingling but denies chills. - Recently commenced treatment with Cosentyx for ankylosing spondylitis, which has led to increased soreness. - Patient is also on Lyrica and tramadol for pain management associated with ankylosing spondylitis and IBS. - Expresses frustration with weight management, despite counting calories and tracking intake diligently. - Reports a weight loss of two pounds. - Requests refill for pregabalin and indicates concurrent use of phentermine for obesity management. - Allergies are managed with Claritin and montelukast. Problem List - Viral Gastroenteritis - Ankylosing Spondylitis - Irritable Bowel Syndrome (IBS) - Allergic Rhinitis - Obesity Patient Instructions - Drink plenty of fluids, such as Gatorade or Pedialyte, to ensure hydration. - Rest at home for the day to aid recovery. - Monitor symptoms and if diarrhea persists, contact for further advice. - Continue tracking food intake and engage in light activities like yoga. - Follow up to check for test results via the patient portal. Orders: Orders SARS-CoV2/FLU/RSV Today R09.89 - Other specified symptoms and signs involving the circulatory and respiratory systems Medications: New pregabalin 150 mg PO BID 90 caps 0RF Refilled phentermine must administer 2 hours after breakfast 15 mg PO DAILY 30 caps 0RF tramadol 50 mg PO DAILY 90 days 90 tabs 0RF G44.89 - Other headache syndrome, K58.9 - Irritable bowel syndrome, unspecified, M45.9 - Ankylosing spondylitis of unspecified sites in spine, R52 - Pain, unspecified
== END 2024-10-12 08:23 | disposition home or self-care (01) ==
LOC: HO.HMCC 07:50
PROVIDERS: PCP Internal Medicine; Visit Provider Internal Medicine
DX: R19.7 Diarrhea, unspecified (principal); J02.9 Acute pharyngitis, unspecified; M45.6 Ankylosing spondylitis lumbar region; F11.20 Opioid dependence, uncomplicated; Z91.09 Other allergy status, other than to drugs and biological substances; F41.1 Generalized anxiety disorder; K58.2 Mixed irritable bowel syndrome; R53.81 Other malaise

== ENCOUNTER 2024-10-12 07:49 | Outpatient (REF) | payer BC, SELFPAY ==
[2024-10-12 11:11] LABS: Influenza A PCR NEGATIVE (Negative); Influenza B PCR NEGATIVE (Negative); Resp Syncy Virus RNA Qual PCR NEGATIVE (Negative); SARS COV2 PCR INHOUSE NEGATIVE (Negative)
== END 2024-10-12 07:50 | disposition home or self-care (01) ==
LOC: HO.LNP 07:49
PROVIDERS: PCP Internal Medicine; Visit Provider Internal Medicine
DX: R50.9 Fever, unspecified (principal)
CPT/HCPCS: 0241U

== ENCOUNTER 2024-11-29 07:50 | Outpatient (REF) | payer BC, SELFPAY ==
[2024-11-29 14:15] LABS: Baso%MD 0.6 %; Eos%MD 2.5 %; Hematocrit 40.3 % (37.0-47.0); Hemoglobin 14.2 g/dl (12.0-16.0); IG%MD 0.2 %; Lymph%MD 26.1 %; Mean Corpuscular HGB Conc 35.2 g/dl (31.0-35.0); Mean Corpuscular Hemoglobin 30.9 pg (27.0-33.0); Mean Corpuscular Volume 87.8 fL (80.0-98.0); Mono%MD 4.9 %; NRBC Abs Auto 0.000 X10*3/uL (0.0-0.012); NRBC Pct Auto 0.0 /100WBC (0.0-0.2); Neut%MD 65.7 %; Platelet Count 316 X10*3/uL (160-400); Red Blood Count 4.59 X10*6/uL (4.20-5.50); White Blood Count 8.8 X10*3/uL (4.8-10.8)
[2024-11-29 14:46] LABS: Alanine Aminotransferase 21 U/L (0-31); Aspartate Amino Transferase 20 U/L (5-31); Estimated Glomerular Filt Rate > 60
[2024-11-29 21:02] LABS: Atypical Lymph Absolute Manual 0.1 x10*3/uL; Atypical Lymphs Percent Manual 1 % (0-6); Basophils Abs Manual 0.1 X10*3/uL (0.0-0.2); Basophils Percent Manual 1 % (0-2); Eosinophils Absolute Manual 0.1 X10*3/uL (0.0-0.4); Eosinophils Percent Manual 1 % (0-4); Lymphocytes Absolute Manual 1.6 X10*3/uL (1.2-4.9); Lymphocytes Percent Manual 18 % (20-40); Monocytes Absolute Manual 0.4 X10*3/uL (0.1-1.2); Monocytes Percent Manual 5 % (2-11); Neutrophils Percent Manual 74 % (45-73)
[2024-11-29 21:05] LABS: RBC Morphology NORMAL
[2024-11-29 21:06] LABS: Band Neutrophils Percent 0 % (3-5); Neutrophils Absolute Manual 6.5 X10*3/uL (2.0-8.3)
== END 2024-11-29 07:51 | disposition home or self-care (01) ==
LOC: HO.HKASLDS 07:50
PROVIDERS: PCP Internal Medicine; Visit Provider Internal Medicine Rheumatology
DX: M45.6 Ankylosing spondylitis lumbar region (principal); M70.61 Trochanteric bursitis, right hip; M70.62 Trochanteric bursitis, left hip
CPT/HCPCS: 36415; 82565; 84450; 84460; 85007; 85027; 85652; 86140

== ENCOUNTER 2024-11-29 07:50 | Outpatient (AMB) | payer BC, SELFPAY ==
--- NOTE | 2024-11-29 07:52 | A.OFFVIS_ITS ---
Vital Signs 11/29/24 07:53 Height 5 ft Weight 211 lb 10.3 oz BMI 41.3 BP 122/70 Blood Pressure Location Rt brachial Position Sitting Pulse 93 Pulse Source Palpation Pulse Oximetry (%) 98 Oxygen Delivery Method Room Air Intake Visit Reasons: 3 months Intake Note: Patient presents for ankylosing spondylitis. Allergies adalimumab (From Humira) Allergy (Mild, Verified 11/29/24 07:53) Rash itcing, with hives naproxen Allergy (Mild, Verified 11/29/24 07:53) hives etanercept (Enbrel) Adverse Reaction (Mild, Verified 11/29/24 07:53) injection site reaction methotrexate Adverse Reaction (Mild, Verified 11/29/24 07:53) rash, hairloss tizanidine Adverse Reaction (Mild, Verified 11/29/24 07:53) Unknown HPI HPI 3 months: Details: She took induction cosentyx 4 doses. She stopped cosentyx due to hives becoming itchy. She had hives but they weren't itchy before for a couple of days prior to starting Cosentyx. Starting xolair next week. Coating Machine Helper Dr. Arango increased Certirizine 40mg BID and Levocetirizine BID. Lower back stiffness is worse. MS 1 hour then returns with prolonged sitting. She had more joint pain. Ankles are swollen in the morning. No dactylitis. Meloxicam causes her to feel hungry sooner. Tylenol 500mg-650mg once or twice a day helps. [facility] Medical History Encounter for general adult medical examination with abnormal findings Mood disorder Rash Diarrhea Pain management Abdominal cramping Encounter for routine gynecological examination Headache syndrome Encounter for control pills maintenance PTSD (post-traumatic stress disorder) Chronic pain Anxiety, generalized Depression, major, recurrent Ankylosing spondylitis Surgical History History of carpal tunnel surgery of right wrist History of wisdom tooth extraction Hx of cholecystectomy Hx of colonoscopy (~2011) Family History Father Obesity HTN (hypertension) Mother Asthma Obesity HTN (hypertension) Atrial fibrillation Stomach problems Brother No problems noted. 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 Good respiratory effort Skin: hives on dorsal hands MSK: No tenderness of small joints in her hands. She is able to hospital receptionist my hands but they are weak. Normal range of motion of upper extremities. Tender right trochanteric bursae. Negative JESUS. Tender to palpate bilateral SI joints. No lumbar spinous process tenderness. Good lumbar flexion. Assessment & Plan Assessment & Plan (1) Ankylosing spondylitis: Comment: After 4 doses of induction of Cosentyx she developed pruritus with her chronic hives and stopped it. Meloxicam caused her to feel hungry faster. She uses Tylenol PRN with benefit. She has increased morning stiffness and back pain since being off of Humira. 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 She is experiencing pain left lower ribs with inspiration. There is myofascial strain contributing to her rib pain. Rheumatology history: With inflammatory back pain, history of dactylitis and polyarthritis previously controlled on Humira but she developed diffuse hives after dose 05/27/2024. Celebrex caused stomach upset in the past. Meloxicam caused her to feel hungry faster Code(s): M45.9 - Ankylosing spondylitis of unspecified sites in spine Category: Medical Qualifiers: Ankylosing spondylitis location: lumbar region Qualified Code(s): M45.6 - Ankylosing spondylitis lumbar region Plan: She will resume Cosentyx loading dose week 5 then maintenance every 4 weeks 1 week after she starts Xolair. Labs for drug monitoring on high-risk medication ordered Stop meloxicam Start nabumetone 500 mg b.i.d. with food Continue home exercise program for lower back strengthening. She has a 300 dollar co-pay with physical therapy. I recommended that she contact insurance to see if there is a physical therapy richie that is covered for her. Return to clinic in 3 months (2) Greater trochanteric bursitis of both hips: Comment: Right worse than left. Pain is uncontrolled. Failed PT and bilateral trochanteric bursa injections in the past. She is currently working on home exercise program with [employer] exercises. Code(s): M70.61 - Trochanteric bursitis, right hip; M70.62 - Trochanteric bursitis, left hip Category: Medical Plan: Continue home exercise program Start nabumetone 500 mg b.i.d. Stop meloxicam Return to clinic in 3 months Medications: New nabumetone Take with food 500 mg PO BID 60 tabs 0RF Coding Level of Care Code Est Pt Level 4 (15092) Complex EM visit Add On G2211 Diagnoses Ankylosing spondylitis of lumbar region M45.6 Ankylosing spondylitis location: lumbar region Greater trochanteric bursitis of both hips M70.61; M70.62
[2024-11-29 07:53] VITALS: BP 122/70; PULSE 93; O2SAT 98; BMI 41.3
--- OUTSIDE RECORDS SUMMARY | 2024-11-29 07:53 | XMS_ITS | Clinical Summary ---
Author Organization [facility] Address [address] [place] [address] Care Team Providers Care Pharmacy Director Name Role Phone Melonie Ji BRONWYN Primary Care Provider Surgical History Surgery Date Site/Laterality Comments CHOLECYSTECTOMY 2007 PROCEDURE: HISTORICAL CHOLECYSTECTOMY WISDOM TOOTH EXTRACTION PROCEDURE: HISTORICAL WISDOM TEETH EXTRACTION COLONOSCOPY 02/13/2010 PROCEDURE: [place] COLONOSCOPY FLX DX W/COLLJ SPEC WHEN PFRMD; COMMENT: Normal Medical History Medical History Date Comments Bipolar affective disorder ( [facility]/HCC V24, CMS/HCC V28) DX:Bipolar affective disorde r ([facility]); COMMENT: Dr. Angélica Hebert OCD (obsessive compulsive disorder) DX:OCD (obsessive compulsive disorder) Chronic headache disorder 03/15/2012 DX:Chr onic headache disorder Family History Medical History Relation Name Comments Breast cancer Maternal Grandmother Relation Name Status Comments Brother Alive healthy Father Alive depression Maternal Grandfather Maternal Grandmother breast cancer ?age Mother Alive depression, ast hma Paternal Grandfather [place] in 5 0's Paternal Grandmother DM, HTN [...] Vaccine ( season) 2024 Influenza Vaccine (#1) 2025 HIB Vaccines Completed 10/17/1990, 06/24, 04/25/1990 [...] 5 Years) and At-Risk Patients (6 to 49 Years) Aged Out No longer eligible based on patient's age to complete this topic RSV Immunization Patients Under 20 months Aged Out No longer eligible based on patient's age to complete this topic Varicella Vaccines Aged Out No longer eligible based on patient's age to complete this topic Care Teams Pharmacy Director Relationship Specialty Start Date End Date Melonie Ji FNP [address] [place] [address] Dr Lewis, [place] [address] PCP - General Family Medicine 02/07/19
== END 2024-11-29 08:24 | disposition home or self-care (01) ==
LOC: HO.RHES 07:51
PROVIDERS: PCP Internal Medicine; Visit Provider Internal Medicine Rheumatology
DX: M45.6 Ankylosing spondylitis lumbar region (principal); M70.61 Trochanteric bursitis, right hip; M70.62 Trochanteric bursitis, left hip
CPT/HCPCS: 99214

== ENCOUNTER 2025-01-12 09:39 | Outpatient (REF) | payer BC, SELFPAY ==
--- OUTSIDE RECORDS SUMMARY | 2025-01-12 09:41 | XMS_ITS | Clinical Summary ---
Author Organization [facility] Address [address] [place] [address] Care Team Providers Care Terra Cotta Roofer Name Role Phone Melonie Ji BRNOWYN Primary Care Provider Surgical History Surgery Date Site/Laterality Comments CHOLECYSTECTOMY 2007 PROCEDURE: HISTORICAL CHOLECYSTECTOMY WISDOM TOOTH EXTRACTION PROCEDURE: HISTORICAL WISDOM TEETH EXTRACTION COLONOSCOPY 02/13/2010 PROCEDURE: [place] COLONOSCOPY FLX DX W/COLLJ SPEC WHEN PFRMD; COMMENT: Normal Medical History Medical History Date Comments Bipolar affective disorder ( [facility]/HCC V24, CMS/HCC V28) DX:Bipolar affective disorde r ([facility]); COMMENT: Dr. Angélica Hebert OCD (obsessive compulsive disorder) DX:OCD (obsessive compulsive disorder) Chronic headache disorder 03/15/2012 DX:Chr onic headache disorder Family History Medical History Relation Name Comments Breast cancer Maternal Grandmother Relation Name Status Comments Brother Alive healthy Father Alive depression Maternal Grandfather Maternal Grandmother breast cancer ?age Mother Alive depression, ast hma Paternal Grandfather [place] in 5 0's Paternal Grandmother DM, HTN [...] history exists COVID-19 Vaccine ( season) 2024 Depression Screening 05/23/2024 Influenza Vaccine (#1) 2025 HIB Vaccines Completed [...] age to complete this topic Care Teams Terra Cotta Roofer Relationship Specialty Start Date End Date Melonie Ji FNP [address] [place] [address] [place] [address] PCP - General Family Medicine 02/07/19
--- OUTSIDE RECORDS SUMMARY | 2025-01-12 09:41 | XMS_ITS | Encounter Summary ---
Author Organization [facility] Address [address] [facility] [address] [place] [address] Phone Care Team Providers Care Base Wad Operator Adjuster Name Role Phone Jah Rodríguez MD Primary Care Provider [phone] Encounter Details Date Type Department Care Team ([facility] st Contact Info) Description 12/23/2023 Transcribe Orders [facility] [address] [place] [address] Lisa Gates, [facility] [address] [facility], [address] [place] [address] [email or web address] Social History Tobacco Use Types Packs/Day Years Used Date Smoking Tobacco: Former Cigarettes Smokeless Tobacco: Never Alcohol Use Standard Drinks/Week Comments Not Currently 0 (1 standard drink = 0.6 oz pur e alcohol) rarely Education Answer Date Recorded Are you interested in more education? Not on stephanie e 01/31/2023 Are you concerned about learning? Not on file 01/31/2023 No 01/31/2023 No 01/31/2023 Digital Access Answer Date Recorded No 01/31/2023 No 01/31/2023 Reliable internet access at home? Not on file 01/31/2023 Device with a working camera? Not on file Comments Unknown Sex and Gender Information Value Date Recorded Sex Assigned at Not on file Legal Sex Female 4:47 PM EDT Gender Identity Not on file Sexual Orientation Not on file documented as of this encounter Plan of Treatment Not on file documented as of this encounter Visit Diagnoses Not on filedocumented in this encounter Care Teams Base Wad Operator Adjuster Relationship Specialty Start Date End Date Jah Rodríguez MD [address] [facility] [place] [address] PCP - General Internal Medicine 01/31/23 documented as of this encounter Additional Source Comments The information contained in this document represents components of the legal health record. It is not the complete legal health record.[facility]
[2025-01-12 12:14] LABS: HBS Num1 0.53 mIU/mL (0-7.99); ~Hepatitis B Surface Antibody NONREACTIVE (Nonreactive)
== END 2025-01-12 09:40 | disposition home or self-care (01) ==
LOC: HO.HMGCLDS 09:39
PROVIDERS: PCP Internal Medicine; Visit Provider Internal Medicine
DX: Z11.59 Encounter for screening for other viral diseases (principal)
CPT/HCPCS: 36415; 86706

== ENCOUNTER 2025-01-18 07:50 | Outpatient (AMB) | payer BC, SELFPAY ==
--- OUTSIDE RECORDS SUMMARY | 2025-01-18 07:53 | XMS_ITS | Encounter Summary ---
Author Organization [facility] Address [address] [facility] [address] [place] [phone] Phone Care Team Providers Care Scale Adjuster Name Role Phone Jah Rodríguez MD Primary Care Provider [phone] Encounter Details Date Type Department Care Team ([facility] st Contact Info) Description 12/23/2023 Transcribe Orders [facility] Laboratory [address] [place] [address] Lisa Gates, [facility] [address] [facility], [address] [place] [address] Social History Tobacco Use Types Packs/Day Years [...] on filedocumented in this encounter Care Teams Scale Adjuster Relationship Specialty Start Date End Date Jah Rodríguez MD [address] [facility] [place] [address] PCP - General Internal Medicine 01/31/23 documented as of this encounter Additional Source Comments The information contained in this document represents components of the legal health record. It is not the complete legal health record.[facility]
--- OUTSIDE RECORDS SUMMARY | 2025-01-18 07:53 | XMS_ITS | Clinical Summary ---
Author Organization [facility] Address [address] [place] [address] Care Team Providers Care Business Reporter Name Role Phone Melonie Ji BRONWYN Primary Care Provider Surgical History Surgery Date Site/Laterality Comments CHOLECYSTECTOMY 2007 PROCEDURE: HISTORICAL CHOLECYSTECTOMY WISDOM TOOTH EXTRACTION PROCEDURE: HISTORICAL WISDOM TEETH EXTRACTION COLONOSCOPY 02/13/2010 PROCEDURE: DE COLONOSCOPY FLX DX W/COLLJ SPEC WHEN PFRMD; COMMENT: Normal Medical History Medical History Date Comments Bipolar affective disorder ( [facility]/HCC V24, CMS/HCC V28) DX:Bipolar affective disorde r ([facility] COMMENT: Dr. Angélica Hebert OCD (obsessive compulsive disorder) DX:OCD (obsessive compulsive disorder) Chronic headache disorder 03/15/2012 DX:Chr onic headache disorder Family History Medical History Relation Name Comments Breast cancer Maternal Grandmother Relation Name Status Comments Brother Alive healthy Father Alive depression Maternal Grandfather Maternal Grandmother breast cancer ?age Mother Alive depression, ast hma Paternal Grandfather CA in 5 0's Paternal Grandmother DM, HTN [...] age to complete this topic Care Teams Business Reporter Relationship Specialty Start Date End Date Melonie Ji FNP [address] [place] [address] [place] [address] PCP - General Family Medicine 02/07/19
--- OUTSIDE RECORDS SUMMARY | 2025-01-18 07:53 | XMS_ITS | Clinical Summary ---
Author Organization [facility] Address [address] [place] [id number] Phone Care Team Providers Care Assistant Business Manager Name Role Phone Jah Rodríguez MD Primary Care Provider [phone] Allergies Active Allergy Reactions Criticality Noted Date Comments Etanercept Acute Generalized Ex anthematous Pustulosis 03/04/2023 Methotrexate Rash Low 03/04/2023 propecia Naproxen Hives 03/04/2023 10/06/22 Tizanidine 03/04/2023 Medications cetirizine (ZYRTEC) 10 MG tablet Take 1 tablet by mouth every morning. 01/01/20 23 Active propranoloL (INDERAL) 20 MG immediate release tablet TAKE 1 TABLET EVERY DAY BY ORAL ROUTE NEEDED. 01/13/20 Active traMADoL (ULTRAM) 50 mg tablet TAKE 1 TABLET BY MOUTH DAILY FOR 90 DAYS 01/15/20 23 Active lamoTRIgine (LAMICTAL) 200 MG IMMEDIATE release tablet Take 1 tablet by mouth every morning. 02/09/20 23 Active montelukast (SINGULAIR) 10 mg tablet Take 1 tablet by mouth daily. 12/27/19 23 Active CRANBERRY ORAL Take by mouth. Active MELATONIN ORAL Take by mouth. Active VITAMIN B COMPLEX ORAL Take by mouth. Activ e TURMERIC ROOT EXTRACT ORAL Take by mouth. Ac tijoe JUNEL FE 06/11, 28, 1 mg-20 mcg (21)/75 mg (7) per tablet TAKE 1 TABLET BY MOUTH IN THE MORNING, NO PLACEBO BREAK 02/29/20 Active metroNIDAZOLE (METROGEL) 0.75 % (37.5mg/5 gram) vaginal gel INSERT 1 APPLICATORFUL BY VAGINAL ROUTE NIGHTLY. 01/04/20 Active phentermine 15 MG capsule Take 15 mg by mouth every morning. 05/25/19 Active cholecalciferol (VITAMIN D3) 5,000 unit tablet Take 1,000 Units by mouth daily. Active MVI, adult formula containing vit K, (MULTIPLE VITAMIN) 3,300 unit- 150 mcg/10 mL injection Inject into the vein. Active dicyclomine (BENTYL) 10 MG capsule 10 mg. 06/14/19 24 Active CREON 36,000-114,000- 180,[address] capsule Take 36,000 units of lipase by mouth. Active adalimumab (HUMIRA) 40 mg/0.4 mL pen kit citrate freeIndications:An kylosing spondylitis of multiple sites in spine Inject 0.4 mL (40 mg total) under the skin every 7 days. 1.6 mL 6 11/22/19 Active Additional Information Patient not taking.Reported on 06/12/2024 lamoTRIgine (LAMICTAL) 25 MG IMMEDIATE release tablet TAKE 2 TABLETS BY MOUTH DAILY IN ADDITION TO 200MG TAB Active EPINEPHrine 0.3 mg/0.3 mL auto-injector Inject 0.3 mL (0.3 mg total) into the muscle as needed for anaphylaxis. 2 each 06/12/19 25 Active LORazepam (ATIVAN) 0.5 MG tabletIndications: Anxiety Take 1 tablet (0.5 mg total) by mouth every 8 (eight) hours as needed for anxiety. 30 tablet 06/15/19 25 Active loratadine (CLARITIN) 10 mg tabletIndications: Drug allergy Take 1 tablet (10 mg total) by mouth daily. 30 tablet 06/15/19 25 Active pregabalin (LYRICA) 150 MG capsuleIndications :Ankylosing spondylitis of multiple sites in spine,Primary osteoarthritis involving multiple joints TAKE 1 CAPSULE BY MOUTH TWICE A DAY 180 capsule 07/16/19 25 Active Active Problems Problem Noted Date Diagnosed Date Primary osteoarthritis involving multiple joints 03/31/2023 Assessment & Plan (03/31/2023 1:23 PM EST): Osteoarthritis in multiple joints with stiffness and gelling. She can continue with tramadol as needed from Dr. Rodríguez. Sent in a refill for her Lyrica. Advised daily physical activity and weight loss. Ankylosing spondylitis of multiple sites in spin e 03/23/2023 Assessment & Plan (03/31/2023 1:24 PM EST): Ankylosing spondylitis currently well controlled on Humira taken every week. She has some stiffness but no active synovitis. We will send in a new prescription for weekly Humira to [facility]. Sent her for some baseline labs today including hepatitis B, C, B27 and QuantiFERON gold. Encounters Date Type Department Care Team Description 01/08/2025 11:50 AM EDT - 01/08/2025 11:59 PM EDT Hospital Encounter [facility] [address] [place] [address] Ravinder Rodriguez MD, MPH Discharge Disposition: Home or Self Care 01/08/2025 Transcribe Orders [facility] [address] [place] [id number] Ravinder Rodriguez MD, MPH Examination, physical, employee (Primary Dx) 10/30/2024 Orders Only [facility] [address] [place] [address] Dayan Reese MD Ankylosing spondylitis of multiple sites in spine (Primary Dx); Long-term use of adalimumab 10/29/2024 Telephone [facility] [address] [place] [address] Danyell Pérez MA from Last 3 Months Immunizations Immunization Administration Dates Next Due Hepatitis B Adult 01/19/2001,08/18/2000,07/22/19 01 MMR 09/03/1994,10/17/1990 Td (adult),2 Lf Tetanus Toxo id, PF, Adsorbed 01/01/2002 Tdap 04/02/2013 Family History Medical History Relation Comments No Known Problems Brother Hypertension Father Obesity Father Asthma Mother Atrial fibrillation Mother Hypertension Mother Obesity Mother Relation Status Comments Brother Alive Father Alive Mother Alive Social History Tobacco Use Types Packs/Day Years Used Date Smoking Tobacco: Former Cigarettes Smokeless Tobacco: Never Tobacco Cessation:Counseling Given: Not Answered Alcohol Use Standard Drinks/Week Comments Not Currently [...] on file Sexual Orientation Not on file Last Filed Vital Signs Vital Sign Reading Time Taken Comments Blood Pressure 137/95 06/15/2024 10:02 AM EST Pulse 84 06/15/2024 10:02 AM EST Temperature 37.4 C (99.3 F) 06/15/2024 10:02 AM EST Respiratory Rate 25 06/15/2024 10:02 AM EST Oxygen Saturation 100% 06/15/2024 10:02 AM EST Inhaled Oxygen Concentration - - Weight 101.2 kg (223 lb) 06/23/2023 4:21 PM EST Height 152.4 cm (5') 06/23/2023 4:21 PM EST Body Mass Index 43.55 06/23/2023 4:21 PM EST Plan of Treatment Health Maintenance Due Date Last Done Comments DEPRESSION SCREENING 2001 SMOKING Hx and SMOKELESS TOBACCO SCREENING 2002 HIV ONE-TIME SCREENING (18-6 5 YEARS) 2007 PNEUMOCOCCAL VACCINES (0-49 years) (1 of 2 - PCV) 2008 PAP SMEAR 2010 Adult Td,Tdap Booster 04/02/2023 04/02/2013 , 01/01/2002 COVID-19 VACCINE (4 - 2023-2 5 season) 2024 01/11/2021, 08/01/2020, 07/11/2020 SCREENING FOR DIABETES 12/25/2026 12/26/2023 HIB VACCINES Completed 10/17/1990, 07/17/1990, 04/25/1990 HEPATITIS C SCREENING Completed 03/24/2023 HEPATITIS A VACCINES Aged Out No long er eligible based on patient's age to complete this topic MENINGOCOCCAL VACCINES (ACWY) Aged Out No longer eligible based on patient's age to complete this topic MENINGOCOCCAL VACCINES (B) Aged Out N o longer eligible based on patient's age to complete this topic Medical Devices Not on file Procedures Procedure Name Priority Date/Time Associated Diagnosis Comments HC TB CELL MEDIATED ANTIGN RESPNSE GAMMA INTERFERON Routine 01/08/2025 11:52 AM EDT Examination, physical, employee HEPATITIS C ANTIBODY, QUALITATIVE Routine 03/24/2023 12:04 PM EDT Ankylosing spondylitis of multiple sites in spine from Last 3 Months or Most Recently Relevant to Health Maintenance Results * Quantiferon-TB Gold (01/08/2025 11:52 AM EDT) [facility] QuantiFERON-TB Gold Negative Negative [facility] Comment: (NOTE) No interferon-gamma response to M. tuberculosis antigens was detected. Latent infection with M. tuberculosis is unlikely. A single negative result does not exclude infection with M. tuberculosis. In patients at high risk for M.tuberculosis infection, a second test should be considered in accordance with the 2017 ATS/IDSA/CDC Clinical Practice Guidelines for Diagnosis of Tuberculosis in Adults and Children [Lewinsohn DM et. al. Clin. Infect. Dis. 2017;64(2):111-115]. The reference range for the 'TB1 Ag minus Nil Result' and 'TB2 Ag minus Nil Result' is an Interferon-gamma level <0.35 IU/mL. TB1 Ag minus Nil 0.00 IU/mL [facility] TB2 Ag minus Nil 0.01 IU/mL [facility] Mitogen minus Nil 9.95 IU/mL [facility] Nil Result 0.05 IU/mL [facility] Blood 01/08/2025 11:5 2 AM EDT 01/08/2025 11:59 AM EDT us Ravinder Rodriguez MD, MPH LAB BLOOD ORDERABLES Fin al Result [facility] [address] [place] [address] * Hepatitis C antibody, qualitative (03/24/2023 12:04 PM EDT) HCV NON-REACTIV E NON-REACTI VE [facility] Blood 03/24/2023 12:0 4 PM EDT 03/24/2023 12:21 PM EDT us Carmelo Go MD LAB BLOOD ORDERABLES nal Result [facility] [address] [place], [place] [id number] from Last 3 Months or Most Recently Relevant to Health Maintenance Insurance [facility] Care Teams Assistant Business Manager Relationship Specialty Start Date End Date Jah Rodríguez MD [address] [facility] [place] [address] PCP - General Internal Medicine 01/31/23 Additional Source Comments The information contained in this document represents components of the legal health record. It is not the complete legal health record.[facility]
--- OUTSIDE RECORDS SUMMARY | 2025-01-18 07:53 | XMS_ITS | Encounter Summary ---
Author Organization [facility] Address [address] [place] [phone] Phone Care Team Providers Care Pourer Buggy Ladle Name Role Phone Jah Rodríguez MD Primary Care Provider [phone] Encounter Details Date Type Department Care Team (Latest Contact Info) Description 01/08/2025 Transcribe Orders [facility] Laboratory [address] [phone] Ravinder Rodriguez MD, MPH [address] [place], [place] [id number] [address] [place] [id number] [email or web address] Examination, physical, employee (Primary Dx) Social History Tobacco Use Types Packs/Day Years [...] on file documented as of this encounter Results * Quantiferon-TB Gold (01/08/2025 11:52 AM EDT) QuantiFERON-TB Gold Negative Negative [facility] Comment: (NOTE) No interferon-gamma [...] Ag minus Nil 0.00 IU/mL [facility] [place] TB2 Ag minus Nil 0.01 IU/mL [facility] [place] Mitogen minus Nil 9.95 IU/mL [facility] [place] Nil Result 0.05 IU/mL [facility] [place] Blood 01/08/2025 11:5 2 AM EDT 01/08/2025 11:59 AM EDT us Ravinder Rodriguez MD, MPH LAB BLOOD ORDERABLES Fin al Result [facility] MED[facility]PATH [place] [address] [place] [address] documented in this encounter Visit Diagnoses Diagnosis Examination, physical, employee- Primary documented in this encounter Care Teams Pourer Buggy Ladle Relationship Specialty Start Date End Date Jah Rodríguez MD [address] [place] [address] [place] [address] PCP - General Internal Medicine 01/31/23 documented as of this encounter Additional Source Comments The information contained in this document represents components of the legal health record. It is not the complete legal health record.[facility]
[2025-01-18 07:57] VITALS: BP 122/74; PULSE 79; O2SAT 99; BMI 40.4
--- NOTE | 2025-01-18 07:57 | A.OFFPC_ITS ---
Vital Signs 01/18/25 07:57 Height 5 ft Weight 207 lb BMI 40.4 BP 122/74 Blood Pressure Location Lt brachial Position Sitting Pulse 79 Pulse Source Pulse Oximeter Pulse Oximetry (%) 99 Intake Visit Reasons: 6m follow up Allergies adalimumab (From Humira) Allergy (Mild, Verified 01/18/25 07:57) Rash itcing, with hives naproxen Allergy (Mild, Verified 01/18/25 07:57) hives etanercept (Enbrel) Adverse Reaction (Mild, Verified 01/18/25 07:57) injection site reaction methotrexate Adverse Reaction (Mild, Verified 01/18/25 07:57) rash, hairloss tizanidine Adverse Reaction (Mild, Verified 01/18/25 07:57) Unknown Medication List - Last Reconciled 01/18/25 by Jah Rodríguez MD ascorbate calcium (vitamin C) 500 mg PO DAILY biotin 5 mg PO DAILY cetirizine 20 mg (2 x 10 mg) PO BID 30 days dicyclomine 20 mg (2 x 10 mg) PO QID 30 days [fish oil PO] lamotrigine 200 mg PO DAILY lamotrigine 50 mg PO DAILY levocetirizine (Xyzal) 5 mg PO DAILY linaclotide (Linzess) 72 mcg PO QAM [lions magda PO] aprbku-iimeeysz-nxvhxfn 36,000-114,000- 180,000 unit (Creon) 2 caps PO BID loratadine (Claritin) 10 mg PO DAILY [magnesium PO] montelukast 10 mg PO DAILY 90 days multivitamin 1 tab PO DAILY norethindrone-e.estradiol-iron 1 mg-20 mcg ()/75 mg (7) (06/11 ()) 1 tab PO DAILY omalizumab (Xolair) 75 mg subcut Q4W phentermine 15 mg PO DAILY [prebiotic PO DAILY] pregabalin 150 mg PO BID 90 days secukinumab (Cosentyx Pen) 150 mg subcut QWEEK 4 weeks sennosides (senna) 25.8 mg PO BEDTIME tramadol 50 mg PO DAILY 90 days [vitamin A PO] [vitamin E PO DAILY] Tobacco use date assessed: 07/20/24 Dental Screening Dental Screen Date: 07/20/24 HPI 6m follow up HPI Details Chief Complaint The patient reports persistent chronic back pain and constipation, requests medication refills, and inquires about follow-up for a previously diagnosed cavernous brain malformation. History of Present Illness The patient is a 34-year-old female presenting with concerns regarding management of her chronic conditions and follow-up for previous diagnosis. Ankylosing Spondylitis: - Diagnosed condition leading to chronic back pain. - Current management with Cosentyx, aguilar shantel, symptoms persist indicating possible inadequate symptom control as she reports being very sore . - Reports timely receipt and adherence t o medication regimen. - High inflammation marker noted, with C -reactive protein elevated at 0.85. Chronic Constipation: - Persistent, lifelong issue - Currently being managed with Senna and occasional addition of MiraLAX. - Experience of constipation causes conc lino in relation to possible impacts on systemic symptoms. - established with Gastroenterology [facility] getting Linzes from them that patient is taking as needed Cavernous Malformation: - Diagnosed in 2019 via MRI. - Encouraged to consider potential follo w-up, though no immediate symptoms repo rted. - Reports MRI was done at [facility]. And she has seen Dr. Manuel neurologist at that time Have requested MRI report Chronic Pain: - Managed with tramadol Medical History: - Ankylosing spondylitis - Chronic back pain - Cavernous brain malformation - Chronic constipation - Depression - treatment of allergy with Xolair treat ment - Dependence on tramadol - Headaches stable Medications: - Cosentyx for ankylosing spondylitis - Atorvastatin - Phentermine for weight loss - Montelukast - Pregabalin - Tramadol for chronic pain - Senna for constipation - MiraLAX (occasionally for constipation ) - Loratadine - Lamotrigine for mood stabilization - Dicyclomine for gastrointestinal distr ess - Xolair for allergic reaction to fungus Social History: - 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 - Monitor for any side effects of medica tions and educate on potential biologic side effects. - Maintain current management for jimenai patijocelyn, with the help of MiraLax, senna and Zay - Send a follow-up message in two to thr ee weeks regarding MRI brain report. And further management - Continue regular check-ups and labs as scheduled. - phentermine script sent, tramadol and lamotrigine sent as well Follow-up 3 months Review of Systems - General: No fever no chills - Neurological: No headaches no dizziness - Ear nose throat: No sore throat no hearing difficulty no ear pain - Cardiovascular: No syncope, no chest pain, no palpitations - Gastrointestinal: No nausea vomiting or diarrhea - Endocrine: No polyuria polydipsia no heat intolerance - Genitourinary: No dysuria , no blood in urine Physical Exam General: No acute distress HEENT: No acute findings Neck: Supple Respiratory system: Able to talk in full sentences, no audible wheeze Cardiovascular: S1-S2 regular in rate and rhythm Gastrointestinal: Chronic constipation Extremities: No new findings 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 awake oriented x3 motor sensory intact Skin: Normal turgor PFSH Medical History Encounter for general adult medical examination with abnormal findings Mood disorder Rash Diarrhea Pain management Abdominal cramping Encounter for routine gynecological examination Headache syndrome Encounter for control pills maintenance PTSD (post-traumatic stress disorder) Chronic pain Anxiety, generalized Depression, major, recurrent Ankylosing spondylitis Surgical History History of carpal tunnel surgery of right wrist History of wisdom tooth extraction Hx of cholecystectomy Hx of colonoscopy (~2011) Family History Father Obesity HTN (hypertension) Mother Asthma Obesity HTN (hypertension) Atrial fibrillation Stomach problems Brother No problems noted. 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 Cognitive needs: No Hearing needs: No Vision needs: Yes Female Reproductive History Menstrual Age of Menarche: 11 Questionnaire Thrive Questionnaire Date Thrive assessed: 07/13/24 I am a: Patient What is your living situation today?: I have a place to live, but I am worried about losing it in the future Within the past 12 months, did the food you bought not last and you didn't have the money to get more?: Never true Within the past 12 months, did you worry whether your food would run out before you got money to buy more?: Never true Do you have trouble paying for medicines?: No Do you have trouble getting transportation to medical appointments?: No Do you have trouble paying your heating and electricity bill?: No Do you have trouble taking care of your child, family member or friend?: No Do you have trouble with day-to-day activities such as bathing, preparing meals, shopping, managing finances, etc.?: No Are you currently unemployed and looking for a job?: No Are you interested in more education?: No Please select the resources that you would like help with: None Currently or been in a relationship where the following occur: No concerns reported THRIVE Score: 1 JESSICA-7 AMB Questionnaire JESSICA-7 Date JESSICA - 7 assessed: 07/20/24 Source: Developed by Drs. Rosas Ravi, Nelly Jacobs, Corey Wallace and colleagues, with an educational parveen from [employer]. Physical exam (Primary Care) Vital Signs: Last Vital Signs Pulse 79 01/18/25 07:57 BP 122/74 01/18/25 07:57 Pulse Ox 99 01/18/25 07:57 BMI result Body Mass Index 40.4 Tobacco/Smoking Status: Tobacco use Status Tobacco use date assessed 07/20/24 01/18/25 07:59 Patient Tobacco Use Status Former Tobacco user 01/18/25 07:59 e-Cigarette/Vaping Use Former Use 01/18/25 07:59 Thrive Assessment: Date of Thrive Assessment Date Thrive assessed 07/13/24 01/18/25 07:59 Currently or been in a relationship where the following occur: No concerns reported Coding Level of Care Code Est Pt Level 4 (20165) Diagnoses Class 3 severe obesity due to excess calories with serious comorbidity and body mass index (BMI) of 40.0 to 44.9 in adult E66.813; Z68.41 Obesity classification: adult class 3 (BMI >= 40) Serious obesity comorbidity presence: with serious comorbidity Body mass index: BMI 40.0-44.9 Chronic pain syndrome G89.4 Chronic pain type: chronic pain syndrome Ankylosing spondylitis of lumbar region M45.6 Ankylosing spondylitis location: lumbar region Headache syndrome G44.89 PTSD (post-traumatic stress disorder) F43.10 Moderate tramadol dependence F11.20 Environmental allergies Z91.09 Anxiety, generalized F41.1 Irritable bowel syndrome with both constipation and diarrhea K58.2 Irritable bowel syndrome type: with both diarrhea and constipation Recurrent major depressive disorder, in partial remission F33.41 Active/Remission status: in partial remission Assessment & Plan Assessment & Plan (1) Obesity due to excess calories: Code(s): E66.09 - Other obesity due to excess calories Category: Medical Qualifiers: Obesity classification: adult class 3 (BMI >= 40) Serious obesity comorbidity presence: with serious comorbidity Body mass index: BMI 40.0-44.9 Qualified Code(s): E66.813 - Obesity, class 3; Z68.41 - Body mass index [BMI] 40.0-44.9, adult (2) Chronic pain: Code(s): G89.29 - Other chronic pain Category: Medical Qualifiers: Chronic pain type: chronic pain syndrome Qualified Code(s): G89.4 - Chronic pain syndrome (3) Ankylosing spondylitis: Comment: After 4 doses of induction of Cosentyx she developed pruritus with her chronic hives and stopped it. Meloxicam caused her to feel hungry faster. She uses Tylenol PRN with benefit. She has increased morning stiffness and back pain since being off of Humira. 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 She is experiencing pain left lower ribs with inspiration. There is myofascial strain contributing to her rib pain. Rheumatology history: With inflammatory back pain, history of dactylitis and polyarthritis previously controlled on Humira but she developed diffuse hives a fter dose 05/27/2024. Celebrex caused stomach upset in the past. Meloxicam caused her to feel hungry faster Code(s): M45.9 - Ankylosing spondylitis of unspecified sites in spine Category: Medical Qualifiers: Ankylosing spondylitis location: lumbar region Qualified Code(s): M45.6 - Ankylosing spondylitis lumbar region (4) Headache syndrome: Code(s): G44.89 - Other headache syndrome Category: Medical (5) PTSD (post-traumatic stress disorder): Comment: Management through Psychiatry Code(s): F43.10 - Post-traumatic stress disorder, unspecified Category: Medical (6) Moderate tramadol dependence: Code(s): F11.20 - Opioid dependence, uncomplicated Category: Medical (7) Environmental allergies: Code(s): Z91.09 - Other allergy status, other than to drugs and biological substances Category: Medical (8) Anxiety, generalized: Comment: Management through Psychiatry Code(s): F41.1 - Generalized anxiety disorder Category: Medical (9) IBS (irritable bowel syndrome): Code(s): K58.9 - Irritable bowel syndrome, unspecified Category: Medical Qualifiers: Irritable bowel syndrome type: with both diarrhea and constipation Qualified Code(s): K58.2 - Mixed irritable bowel syndrome (10) Depression, major, recurrent: Comment: Management through Psychiatry Code(s): F33.9 - Major depressive disorder, recurrent, unspecified Category: Medical Qualifiers: Active/Remission status: in partial remission Qualified Code(s): F33.41 - Major depressive disorder, recurrent, in partial remission Plan Chief Complaint The patient reports persistent chronic back pain and constipation, requests medication refills, and inquires about follow-up for a previously diagnosed cavernous brain malformation. History of Present Illness The patient is a 34-year-old female presenting with concerns regarding management of her chronic conditions and follow-up for previous diagnosis. Ankylosing Spondylitis: - Diagnosed condition leading to chronic back pain. - Current management with Cosentyx, however, symptoms persist indicating possible inadequate symptom control as she reports being very sore . - Reports timely receipt and adherence to medication regimen. - High inflammation marker noted, with C-reactive protein elevated at 0.85. Chronic Constipation: - Persistent, lifelong issue - Currently being managed with Senna and occasional addition of MiraLAX. - Experience of constipation causes concern in relation to possible impacts on systemic symptoms. - established with Gastroenterology [facility] getting Linzes from them that patient is taking as needed Cavernous Malformation: - Diagnosed in 2019 via MRI. - Encouraged to consider potential follow-up, though no immediate symptoms reported. - Reports MRI was done at [facility]. And she has seen Dr. Manuel neurologist at that time Have requested MRI report Chronic Pain: - Managed with tramadol Medical History: - Ankylosing spondylitis - Chronic back pain - Cavernous brain malformation - Chronic constipation - Depression - treatment of allergy with Xolair treatment - Dependence on tramadol - Headaches stable Medications: - Cosentyx for ankylosing spondylitis - Atorvastatin - Phentermine for weight loss - Montelukast - Pregabalin - Tramadol for chronic pain - Senna for constipation - MiraLAX (occasionally for constipation) - Loratadine - Lamotrigine for mood stabilization - Dicyclomine for gastrointestinal distress - Xolair for allergic reaction to fungus Social History: - 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 - Monitor for any side effects of medications and educate on potential biologic side effects. - Maintain current management for constipation, with the help of MiraLax, senna and Linzess - Send a follow-up message in two to three weeks regarding MRI brain report. And further management - Continue regular check-ups and labs as scheduled. - phentermine script sent, tramadol and lamotrigine sent as well Follow-up 3 months Medications: Refilled phentermine must administer 2 hours after breakfast 15 mg PO DAILY 30 caps 0RF phentermine must administer 2 hours after breakfast 15 mg PO DAILY 30 caps 0RF
== END 2025-01-18 08:23 | disposition home or self-care (01) ==
LOC: HO.HMCC 07:51
PROVIDERS: PCP Internal Medicine; Visit Provider Internal Medicine
DX: M45.6 Ankylosing spondylitis lumbar region (principal); Z68.41 Body mass index [BMI] 40.0-44.9, adult; F11.20 Opioid dependence, uncomplicated; E66.813 Obesity, class 3; G89.4 Chronic pain syndrome; G44.89 Other headache syndrome; F43.10 Post-traumatic stress disorder, unspecified; Z91.09 Other allergy status, other than to drugs and biological substances; F41.1 Generalized anxiety disorder; K58.2 Mixed irritable bowel syndrome; F33.41 Major depressive disorder, recurrent, in partial remission

== ENCOUNTER 2025-02-22 13:02 | Outpatient (AMB) | payer BC, SELFPAY ==
--- OUTSIDE RECORDS SUMMARY | 2025-02-18 13:43 | XMS_ITS | Encounter Summary ---
Author Organization [facility] Address [address] [place] [address] [place] [phone] Phone Care Team Providers Care Career Counselor Name Role Phone Jah Rodríguez MD Primary Care Provider [phone] Encounter Details Date Type Department Care Team (Latest Contact Info) Description 02/18/2025 1:43 PM EDT - 02/18/2025 11:59 PM EDT Hospital Encounter [facility] [address] [place] [address] Ravinder Rodriguez MD, MPH [address] [place] [address] [id number] [email or web address] Discharge Disposition: Home or Self Care Social History Tobacco Use Types Packs/Day Years [...] on file documented as of this encounter Medications at Time of Discharge adalimumab (HUMIRA) 40 mg/0.4 mL pen kit citrate freeIndications:Ank ylosing spondylitis of multiple sites in spine Inject 0.4 mL (40 mg total) under the skin every 7 days. 1.6 mL 6 4 cetirizine (ZYRTEC) 10 MG tablet Take 1 tablet by mouth every morning. 3 cholecalciferol (VITAMIN D3) 5,000 unit tablet Take 1,000 Units by mouth daily. CRANBERRY ORAL Take by mouth. CREON 36,000-114,000- 180,[address] capsule Take 36,000 units of lipase by mouth. dicyclomine (BENTYL) 10 MG capsule 10 mg. 4 EPINEPHrine 0.3 mg/0.3 mL auto-injector Inject 0.3 mL (0.3 mg total) into the muscle as needed for anaphylaxis. 2 each 5 06/11, 28, 1 mg-20 mcg (21)/75 mg (7) per tablet TAKE 1 TABLET BY MOUTH IN THE MORNING, NO PLACEBO BREAK 3 lamoTRIgine (LAMICTAL) 200 MG IMMEDIATE release tablet Take 1 tablet by mouth every morning. 3 lamoTRIgine (LAMICTAL) 25 MG IMMEDIATE release tablet TAKE 2 TABLETS BY MOUTH DAILY IN ADDITION TO 200MG TAB loratadine (CLARITIN) 10 mg tabletIndications:D rug allergy Take 1 tablet (10 mg total) by mouth daily. 30 tablet 5 LORazepam (ATIVAN) 0.5 MG tabletIndications:A nxiety Take 1 tablet (0.5 mg total) by mouth every 8 (eight) hours as needed for anxiety. 30 tablet 5 MELATONIN ORAL Take by mouth. metroNIDAZOLE (METROGEL) 0.75 % (37.5mg/5 gram) vaginal gel INSERT 1 APPLICATORFUL BY VAGINAL ROUTE NIGHTLY. 3 montelukast (SINGULAIR) 10 mg tablet Take 1 tablet by mouth daily. 3 MVI, adult formula containing vit K, (MULTIPLE VITAMIN) 3,300 unit- 150 mcg/10 mL injection Inject into the vein. phentermine 15 MG capsule Take 15 mg by mouth every morning. 4 pregabalin (LYRICA) 150 MG capsuleIndications: Ankylosing spondylitis of multiple sites in spine,Primary osteoarthritis involving multiple joints TAKE 1 CAPSULE BY MOUTH TWICE A DAY 180 capsule 5 propranoloL (INDERAL) 20 MG immediate release tablet TAKE 1 TABLET EVERY DAY BY ORAL ROUTE NEEDED. 3 traMADoL (ULTRAM) 50 mg tablet TAKE 1 TABLET BY MOUTH DAILY FOR 90 DAYS 3 TURMERIC ROOT EXTRACT ORAL Take by mouth. VITAMIN B COMPLEX ORAL Take by mouth. documented as of this encounter Plan of Treatment Not on file documented as of this encounter Procedures Procedure Name Priority Date/Time Associated Diagnosis Comments HEPATITIS B SURFACE ANTIBODY Routine 02/18/2025 1:50 PM EDT Need for hepatitis B screening test documented in this encounter Results * Hepatitis B surface antibody (02/18/2025 1:50 PM EDT) HBV SURFACE ANTIBODY Reactive [facility] Comment: Unvaccinated: Non Reactive Vaccinated: Reactive Blood 02/18/2025 1:50 PM EDT 02/18/2025 1:52 PM EDT us Ravinder Rodriguez MD, MPH LAB BLOOD ORDERABLES Fin al Result [facility] [address] [place] [address] documented in this encounter Visit Diagnoses Diagnosis Need for hepatitis B screening test documented in this encounter Care Teams Career Counselor Relationship Specialty Start Date End Date Jah Rodríguez MD [facility] [place] [address] PCP - General Internal Medicine 01/31/23 documented as of this encounter Additional Source Comments The information contained in this document represents components of the legal health record. It is not the complete legal health record.[facility]
--- NOTE | 2025-02-22 13:05 | A.OFFPC_ITS ---
Vital Signs 02/22/25 13:07 Height 5 ft Weight 207 lb BMI 40.4 BP 120/82 Blood Pressure Location Rt brachial Position Sitting Respiration 15 Pulse 85 Pulse Source Pulse Oximeter Temp 98.1 F Temp Source Oral Pulse Oximetry (%) 98 Oxygen Delivery Method Room Air Intake Visit Reasons: Follow-up Intake Note: Pt is here today c/o flare up autoimmune which is causes stress Allergies adalimumab (From Humira) Allergy (Mild, Verified 02/22/25 13:05) Rash itcing, with hives naproxen Allergy (Mild, Verified 02/22/25 13:05) hives etanercept (Enbrel) Adverse Reaction (Mild, Verified 02/22/25 13:05) injection site reaction methotrexate Adverse Reaction (Mild, Verified 02/22/25 13:05) rash, hairloss tizanidine Adverse Reaction (Mild, Verified 02/22/25 13:05) Unknown Medication List - Last Reconciled 02/22/25 by Jah Rodríguez MD cetirizine 20 mg (2 x 10 mg) PO BID 30 days dicyclomine 20 mg (2 x 10 mg) PO QID 30 days lamotrigine 200 mg PO DAILY lamotrigine 50 mg PO DAILY linaclotide (Linzess) 72 mcg PO QAM [lions magda PO] oavbba-kibgddwt-sccfxxq 36,000-114,000- 180,000 unit (Creon) 2 caps PO BID loratadine (Claritin) 10 mg PO DAILY [magnesium PO] montelukast 10 mg PO DAILY 90 days norethindrone-e.estradiol-iron 1 mg-20 mcg ()/75 mg (7) (06/11 ()) 1 tab PO DAILY omalizumab (Xolair) 75 mg subcut Q4W phentermine 15 mg PO DAILY [prebiotic PO DAILY] pregabalin 150 mg PO BID 90 days secukinumab (Cosentyx Pen) 150 mg subcut Q4W 4 weeks sennosides (senna) 25.8 mg PO BEDTIME tramadol 50 mg PO DAILY 90 days Tobacco use date assessed: 02/22/25 Dental Screening Dental Screen Date: 07/20/24 HPI HPI Comments History of Present Illness Details History of Present Illness The patient is a 34 year old female presenting with increased lower back pain. Lower back pain: - The patient reports experiencing signi ficant lower back pain for some time. - She describes the pain as severe enoug h that she is unable to function properly at times. 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 - The pain is described as so severe erma t it causes nausea and radiates to her knees to some extent, but is not consistent with a pinched nerve. - Tramadol, previously effective, is now insufficient when used only at night. - She has not been able to accomplish ta sks such as grocery shopping without having to stop due to pain. - Patient has been prescribed prednisone in the past, with some left over from a previous episode, which was effective in managing inflammation. - Most recent exacerbation was precipita sid by work-related stress and workload. Inadequate response to Cosentyx: - Patient is currently on Cosentyx and f eels it is not managing her symptoms of back pain. - Previous medication Humira was effecti ve but discontinued due to severe hives. - The patient is scheduled to discuss cu rrent treatment with her linux network administrator next week. Medical History: - History of severe hives induced by Hum rajiv. - Chronic lower back pain. - Current treatment with lamotrigine for mood stabilization. Medications: - Tramadol 50 mg, used at night for lowe r back pain. - Cosentyx for management of symptoms re lated to a rheumatologic condition. - Lamotrigine for mood stabilization. - Phentermine for weight management. - Xolair for treatment of hives. 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 - Currently searching for new employment . - Reports overeating as a coping mechani sm for stress, controlled with phentermine. Problem List - Chronic lower back pain. Secondary to ankylosing spondylitis - Inadequate response to Cosentyx. Plan - Increase Tramadol to twice daily to ad dress increased lower back pain until current prescription ends, with a new prescription to follow. - Advise taking leftover prednisone to m anage inflammatory exacerbation of back pain. - Monitor response to the change in medi cation regimen and discuss with linux network administrator if Cosentyx remains ineffective.. - Evaluate and discuss job-related stres s management and health insurance concerns. Review of Systems - General: No fever no chills - Neurological: No headaches no dizziness - Ear nose throat: No sore throat no hearing difficulty no ear pain - Cardiovascular: No syncope, no chest pain, no palpitations - Gastrointestinal: No vomiting or diarrhea - Endocrine: No polyuria polydipsia no heat intolerance - Genitourinary: No dysuria , no blood in urine Physical Exam General: No acute distress HEENT: No acute findings Neck: Supple Respiratory system: Able to talk in full sentences, no audible wheeze Cardiovascular: S1-S2 regular in rate and rhythm Gastrointestinal: No pain Back pain located over lumbar area Extremities: No new findings 911 DISPATCHER: Alert awake oriented x3 motor intact no pain with straight leg raise Skin: Normal turgor PFS Medical History (Updated 02/22/25 @ 13:29 by Jah Rodríguez MD) Pain management Encounter for general adult medical examination with abnormal findings Mood disorder Rash Diarrhea Abdominal cramping Encounter for routine gynecological examination Headache syndrome Encounter for control pills maintenance PTSD (post-traumatic stress disorder) Chronic pain Anxiety, generalized Depression, major, recurrent Ankylosing spondylitis Surgical History History of carpal tunnel surgery of right wrist History of wisdom tooth extraction Hx of cholecystectomy Hx of colonoscopy (~2011) Family History Father Obesity HTN (hypertension) Mother Asthma Obesity HTN (hypertension) Atrial fibrillation Stomach problems Brother No problems noted. 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 Cognitive needs: No Hearing needs: No Vision needs: Yes Female Reproductive History Menstrual Age of Menarche: 11 Questionnaire Thrive Questionnaire Date Thrive assessed: 07/13/24 I am a: Patient What is your living situation today?: I have a place to live, but I am worried about losing it in the future Within the past 12 months, did the food you bought not last and you didn't have the money to get more?: Never true Within the past 12 months, did you worry whether your food would run out before you got money to buy more?: Never true Do you have trouble paying for medicines?: No Do you have trouble getting transportation to medical appointments?: No Do you have trouble paying your heating and electricity bill?: No Do you have trouble taking care of your child, family member or friend?: No Do you have trouble with day-to-day activities such as bathing, preparing meals, shopping, managing finances, etc.?: No Are you currently unemployed and looking for a job?: No Are you interested in more education?: No Please select the resources that you would like help with: None Currently or been in a relationship where the following occur: No concerns reported THRIVE Score: 1 JESSICA-7 AMB Questionnaire JESSICA-7 Date JESSICA - 7 assessed: 07/20/24 Source: Developed by Drs. Rosas Ravi, Nelly Jacobs, Corey Wallace and colleagues, with an educational parveen from [employer]. Physical exam (Primary Care) Vital Signs: Last Vital Signs Temp 98.1 F 02/22/25 13:07 Pulse 85 02/22/25 13:07 Resp 15 02/22/25 13:07 BP 120/82 02/22/25 13:07 Pulse Ox 98 02/22/25 13:07 Oxygen Delivery Method Room Air 02/22/25 13:07 BMI result Body Mass Index 40.4 Tobacco/Smoking Status: Tobacco use Status Tobacco use date assessed 02/22/25 02/22/25 13:13 Patient Tobacco Use Status Former Tobacco user 02/22/25 13:13 e-Cigarette/Vaping Use Former Use 02/22/25 13:13 Thrive Assessment: Date of Thrive Assessment Date Thrive assessed 07/13/24 02/22/25 13:13 Currently or been in a relationship where the following occur: No concerns reported Coding Level of Care Code Est Pt Level 3 (22775) Diagnoses Acute bilateral low back pain without sciatica M54.50 Back pain laterality: bilateral Sciatica presence: without sciatica Ankylosing spondylitis of lumbar region M45.6 Ankylosing spondylitis location: lumbar region Pain management R52 Assessment & Plan Assessment & Plan (1) Acute lumbar back pain: Code(s): M54.50 - Low back pain, unspecified Category: Medical Qualifiers: Back pain laterality: bilateral Sciatica presence: without sciatica Qualified Code(s): M54.50 - Low back pain, unspecified (2) Ankylosing spondylitis: Comment: After 4 doses of induction of Cosentyx she developed pruritus with her chronic hives and stopped it. Meloxicam caused her to feel hungry faster. She uses Tylenol PRN with benefit. She has increased morning stiffness and back pain since being off of Humira. 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 She is experiencing pain left lower ribs with inspiration. There is myofascial strain contributing to her rib pain. Rheumatology history: With inflammatory back pain, history of dactylitis and polyarthritis previously controlled on Humira but she developed diffuse hives after dose 05/27/2024. Celebrex caused stomach upset in the past. Meloxicam caused her to feel hungry faster Code(s): M45.9 - Ankylosing spondylitis of unspecified sites in spine Category: Medical Qualifiers: Ankylosing spondylitis location: lumbar region Qualified Code(s): M45.6 - Ankylosing spondylitis lumbar region (3) Pain management: Code(s): R52 - Pain, unspecified Category: Medical Plan History of Present Illness The patient is a 34 year old female presenting with increased lower back pain. Lower back pain: - The patient reports experiencing significant lower back pain for some time. - She describes the pain as severe enough that she is unable to function properly at times. 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 - The pain is described as so severe that it causes nausea and radiates to her knees to some extent, but is not consistent with a pinched nerve. - Tramadol, previously effective, is now insufficient when used only at night. - She has not been able to accomplish tasks such as grocery shopping without having to stop due to pain. - Patient has been prescribed prednisone in the past, with some left over from a previous episode, which was effective in managing inflammation. - Most recent exacerbation was precipitated by work-related stress and workload. Inadequate response to Cosentyx: - Patient is currently on Cosentyx and feels it is not managing her symptoms of back pain. - Previous medication Humira was effective but discontinued due to severe hives. - The patient is scheduled to discuss current treatment with her linux network administrator next week. Medical History: - History of severe hives induced by Humira. - Chronic lower back pain. - Current treatment with lamotrigine for mood stabilization. Medications: - Tramadol 50 mg, used at night for lower back pain. - Cosentyx for management of symptoms related to a rheumatologic condition. - Lamotrigine for mood stabilization. - Phentermine for weight management. - Xolair for treatment of hives. 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 - Currently searching for new employment. - Reports overeating as a coping mechanism for stress, controlled with phentermine. Problem List - Chronic lower back pain. Secondary to ankylosing spondylitis - Inadequate response to Cosentyx. Plan - Increase Tramadol to twice daily to address increased lower back pain until current prescription ends, with a new prescription to follow. - Advise taking leftover prednisone to manage inflammatory exacerbation of back pain. - Monitor response to the change in medication regimen and discuss with linux network administrator if Cosentyx remains ineffective.. - Evaluate and discuss job-related stress management and health insurance concerns. Medications: Changed From tramadol 50 mg PO DAILY 90 days 90 tabs 0RF G44.89 - Other headache syndrome, K58.9 - Irritable bowel syndrome, unspecified, M45.9 - Ankylosing spondylitis of unspecified sites in spine, R52 - Pain, unspecified To tramadol 50 mg PO BID 180 tabs 0RF 90 days G44.89 - Other headache syndrome, K58.9 - Irritable bowel syndrome, unspecified, M45.9 - Ankylosing spondylitis of unspecified sites in spine, R52 - Pain, unspecified
[2025-02-22 13:07] VITALS: BP 120/82; PULSE 85; RESP 15; TEMP 36.7; O2SAT 98; BMI 40.4
--- OUTSIDE RECORDS SUMMARY | 2025-02-22 13:25 | XMS_ITS | Encounter Summary ---
Author Organization [facility] Address [address] [place] [phone] Phone Care Team Providers Care Flexo Folder Gluer Operator Name Role Phone Jah Rodríguez MD Primary Care Provider [phone] Encounter Details Date Type Department Care Team (Latest Contact Info) Description 01/08/2025 Transcribe Orders [facility] Laboratory [address] [id number] Ravinder Rodriguez MD, MPH [address] [place], [place] [id number] [address] [place] [id number] [email or web address] Examination, physical, employee (Primary Dx) Social History [...] 11:52 AM EDT) QuantiFERON-TB Gold Negative Negative [facility] LAB MED/PATH [place] Comment: (NOTE) No interferon-gamma [...] Ag minus Nil 0.00 IU/mL [facility] [place] TB2 Ag minus Nil 0.01 IU/mL [facility] [place] Mitogen minus Nil 9.95 IU/mL [facility]/PATH [place] Nil Result 0.05 IU/mL [facility]/PATH [place] Blood 01/08/2025 11:5 2 AM EDT 01/08/2025 11:59 AM EDT us Ravinder Rodriguez MD, MPH LAB BLOOD ORDERABLES Fin al Result [facility] MED/PATH [place] [address] [place] [address] documented in this encounter Visit Diagnoses Diagnosis Examination, physical, employee- Primary documented in this encounter Care Teams Flexo Folder Gluer Operator Relationship Specialty Start Date End Date Jah Rodríguez MD [address] [place] [address] [place] [address] PCP - General Internal Medicine 01/31/23 documented as of this encounter Additional Source Comments The information contained in this document represents components of the legal health record. It is not the complete legal health record.[facility]
--- OUTSIDE RECORDS SUMMARY | 2025-02-22 13:25 | XMS_ITS | Clinical Summary ---
Author Organization [facility] Address [address] [place] [address] Care Team Providers Care Hat Maker Name Role Phone Melonie Ji BRONWYN Primary Care Provider Surgical History Surgery Date Site/Laterality Comments CHOLECYSTECTOMY 2007 PROCEDURE: HISTORICAL CHOLECYSTECTOMY WISDOM TOOTH EXTRACTION PROCEDURE: HISTORICAL WISDOM TEETH EXTRACTION COLONOSCOPY 02/13/2010 PROCEDURE: ME COLONOSCOPY FLX DX W/COLLJ SPEC WHEN PFRMD; COMMENT: Normal Medical History Medical History Date Comments Bipolar affective disorder ( [facility]/HCC V24, CMS/HCC V28) DX:Bipolar affective disorde r ([facility]); COMMENT: Dr. Angélica Hebert OCD (obsessive compulsive disorder) DX:OCD (obsessive compulsive disorder) Chronic headache disorder 03/15/2012 DX:Chr onic headache disorder Family History Medical History Relation Name Comments Breast cancer Maternal Grandmother Relation Name Status Comments Brother Alive healthy Father Alive depression Maternal Grandfather Maternal Grandmother breast cancer ?age Mother Alive depression, ast hma Paternal Grandfather PA in 5 0's Paternal Grandmother DM, HTN [...] 01/02/2012 01/01/2002, 09/03/1994, 01/17/1991, Additional history exists HPV Vaccines (1 - 3-dose SCDM series) 2016 Depression Screening 05/23/2024 COVID-19 Vaccine ( - 2023- season) 2025 Influenza Vaccine (#1) 2025 RSV Immunization Adult Patients (1 - 1-dose 75+ series) 2064 HIB Vaccines Completed 10/17/1990, 06/24, 04/25/1990 IPV Vaccines Completed 09/03/1994, 12/22, 10/17/1990, Additional history exists MMR Vaccines Completed 09/03/1994, 10/17/1990 Hepatitis B Vaccines Completed 01/19/2001, 08/18/2000, 07/21/2000 Hepatitis A Vaccines Aged Out No long [...] age to complete this topic Care Teams Hat Maker Relationship Specialty Start Date End Date Melonie Ji FNP [address] [place] [address] [place] [phone] PCP - General Family Medicine 02/07/19
--- OUTSIDE RECORDS SUMMARY | 2025-02-22 13:25 | XMS_ITS | Clinical Summary ---
Author Organization [facility] Address [address] [place] [phone] Phone Care Team Providers Care Frozen Meat Cutter Name Role Phone Jah Rodríguez MD Primary Care Provider [phone] Allergies Active Allergy Reactions Criticality Noted Date [...] EXTRACT ORAL Take by mouth. Ac tijoe JUNEAmbrosio FE 06/11, , 1 mg-20 mcg (21)/75 mg (7) per [...] Encounters Date Type Department Care Team Description 02/18/2025 1:43 PM EDT - 02/18/2025 11:59 PM EDT Hospital Encounter [facility] [address] [place] [address] Ravinder Rodriguez MD, MPH Discharge Disposition: Home or Self Care 02/18/2025 Transcribe Orders [facility] [address] [place] [address] Ravinder Rodriguez MD, MPH Need for hepatitis B screening test (Primary Dx) 01/30/2025 Refill [facility]umatology [address] [place] [address] Celso Martinez, [facility] Medication Refill 01/30/2025 Documentation [facility] [address] [place] [phone] Hema Victor, [facility] 01/08/2025 11:50 AM EDT - 01/08/2025 11:59 PM EDT Hospital Encounter [facility] [address] [place] [address] Ravinder Rodriguez MD, MPH Discharge Disposition: Home or Self Care 01/08/2025 Transcribe Orders [facility] [address] [place] [address] Ravinder Rodriguez MD, MPH Examination, physical, employee (Primary Dx) from Last 3 Months Immunizations Immunization Administration [...] Adult Td,Tdap Booster 04/02/2023 04/02/2013 , 01/01/2002 INFLUENZA VACCINE (#1) 2024 3, 04/25/2020, 05/17/2018 COVID-19 VACCINE (4 - 2024-2 6 season) 2025 01/11/2021, 08/01/2020, 07/11/2020 SCREENING FOR DIABETES 12/25/2026 [...] EDT Need for hepatitis B screening test HC TB CELL MEDIATED ANTIGN RESPNSE GAMMA INTERFERON Routine 01/08/2025 11:52 AM EDT Examination, physical, employee HEPATITIS C ANTIBODY, QUALITATIVE Routine 03/24/2023 12:04 PM EDT Ankylosing spondylitis of multiple sites in spine from Last 3 Months or Most Recently Relevant to Health Maintenance Results * Hepatitis B surface antibody (02/18/2025 1:50 PM EDT) HBV SURFACE ANTIBODY Reactive [facility] Comment: Unvaccinated: Non Reactive Vaccinated: Reactive Blood 02/18/2025 1:50 PM EDT 02/18/2025 1:52 PM EDT us Ravinder Rodriguez MD, MPH LAB BLOOD ORDERABLES Fin al Result [facility] [address] [place] [address] * Quantiferon-TB Gold (01/08/2025 11:52 AM EDT) Pathologist [facility] QuantiFERON-TB Gold Negative Negative [facility]/PATH [place] Comment: (NOTE) No interferon-gamma response to M. [...] Ag minus Nil 0.00 IU/mL [facility] [place] TB2 Ag minus Nil 0.01 IU/mL [facility] [place] Mitogen minus Nil 9.95 IU/mL [facility] Nil Result 0.05 IU/mL [facility] Blood 01/08/2025 11:5 2 AM EDT 01/08/2025 11:59 AM EDT us Ravinder Rodriguez MD, MPH LAB BLOOD ORDERABLES Fin al Result Performing Organization Address City/[facility] Co de Phone Number [facility] MED/PATH [place] [address] [place] [address] * Hepatitis C antibody, qualitative (03/24/2023 12:04 PM EDT) HCV NON-REACTIV E NON-REACTI VE [facility] Blood 03/24/2023 12:0 4 PM EDT 03/24/2023 12:21 PM EDT us Carmelo Go MD LAB BLOOD ORDERABLES Fi nal Result Performing Organization Address City/[facility]/ZIP Co de Phone Number [facility] [address] [place] [address] from Last 3 Months or Most Recently Relevant to Health Maintenance Insurance [facility] Care Teams Frozen Meat Cutter Relationship Specialty Start Date End Date Jah Rodríguez MD [address] [facility] [place] [address] PCP - General Internal Medicine 01/31/23 Additional Source Comments The information contained in this document represents components of the legal health record. It is not the complete legal health record.[facility]
--- OUTSIDE RECORDS SUMMARY | 2025-02-22 13:25 | XMS_ITS | Encounter Summary ---
Author Organization [facility] Address [address] [place] [address] [place] [address] Phone Care Team Providers Care Chain Repairer Name Role Phone Jah Rodríguez MD Primary Care Provider [phone] Encounter Details Date Type Department Care Team (Latest Contact Info) Description 02/18/2025 Transcribe Orders [facility] Laboratory [address] [address] Ravinder Rodriguez MD, MPH [address] [place], [place] [phone] [address] [place] [phone] [email or web address] Need for hepatitis B screening test (Primary Dx) Social History Tobacco Use Types [...] documented as of this encounter Results * Hepatitis B surface antibody (02/18/2025 1:50 PM EDT) HBV SURFACE ANTIBODY Reactive [facility] Comment: Unvaccinated: Non Reactive Vaccinated: Reactive Blood 02/18/2025 1:50 PM EDT 02/18/2025 1:52 PM EDT us Ravinder Rodriguez MD, MPH LAB BLOOD ORDERABLES Fin al Result [facility] [address] [place] [address] documented in this encounter Visit Diagnoses Diagnosis Need for hepatitis B screening test- Primary documented in this encounter Care Teams Chain Repairer Relationship Specialty Start Date End Date Jah Rodríguez MD [facility] [place] [address] PCP - General Internal Medicine 01/31/23 documented as of this encounter Additional Source Comments The information contained in this document represents components of the legal health record. It is not the complete legal health record.[facility]
--- OUTSIDE RECORDS SUMMARY | 2025-02-22 13:25 | XMS_ITS | Encounter Summary ---
Author Organization [facility] Address [address] [facility] [address] [place] [phone] Phone Care Team Providers Care Medical Sales Specialist Name Role Phone Jah Rodríguez MD Primary Care Provider [phone] Encounter Details Date Type Department Care Team ([facility] st Contact Info) Description 12/23/2023 Transcribe Orders [facility] Laboratory [address] [place] [address] Lisa Gates, [facility] [address] [facility], [address] [place] [address] Social History Tobacco Use Types Packs/Day Years [...] on filedocumented in this encounter Care Teams Medical Sales Specialist Relationship Specialty Start Date End Date Jah Rodríguez MD [address] [facility] [place] [address] PCP - General Internal Medicine 01/31/23 documented as of this encounter Additional Source Comments The information contained in this document represents components of the legal health record. It is not the complete legal health record.[facility]
== END 2025-02-22 14:44 | disposition home or self-care (01) ==
PROVIDERS: PCP Internal Medicine; Visit Provider Internal Medicine
DX: M45.6 Ankylosing spondylitis lumbar region (principal); R52 Pain, unspecified

== ENCOUNTER 2025-02-28 07:58 | Outpatient (AMB) | payer BC, SELFPAY ==
--- NOTE | 2025-02-28 08:06 | A.OFFVIS_ITS ---
Vital Signs 02/28/25 08:08 Height 5 ft Weight 209 lb 7.026 oz BMI 40.9 BP 118/80 Blood Pressure Location Rt brachial Position Sitting Pulse 92 Pulse Source Pulse Oximeter Pulse Oximetry (%) 98 Oxygen Delivery Method Room Air Intake Visit Reasons: 3 Months Intake Note: Patient presents for ankylosing spondylitis. Accompanied by: Self / Same As Patient Allergies adalimumab (From Humira) Allergy (Mild, Verified 02/22/25 13:05) Rash itcing, with hives naproxen Allergy (Mild, Verified 02/22/25 13:05) hives etanercept (Enbrel) Adverse Reaction (Mild, Verified 02/22/25 13:05) injection site reaction methotrexate Adverse Reaction (Mild, Verified 02/22/25 13:05) rash, hairloss tizanidine Adverse Reaction (Mild, Verified 02/22/25 13:05) Unknown HPI HPI 3 Months: Details: She had to quit her job due to the stressess of doing a job of 6 people. 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 She had a flare of . She had 10/10 at times in lower back. She had to use a wheel chair while at [employer]. Her fingers were swollen when she was in [place]. She has knee pain since being off of Humira. SHe has pain in feet with stiffness. No dactylitis. She goes to [employer] twice a year and is fine without issues. She feels like how she was before Humira. SHe has nocturnal pain waking her up. Morning stiffness hours, which was 30 minutes in the past. She had 4 cosentyx mantanece doses. Nabumatone caused stomach pain. She has some relief ibuprofen 800mg with 1000mg daily. She is on xolair. [facility] Medical History Pain management Encounter for general adult medical examination with abnormal findings Mood disorder Rash Diarrhea Abdominal cramping Encounter for routine gynecological examination Headache syndrome Encounter for control pills maintenance PTSD (post-traumatic stress disorder) Chronic pain Anxiety, generalized Depression, major, recurrent Ankylosing spondylitis Surgical History History of carpal tunnel surgery of right wrist History of wisdom tooth extraction Hx of cholecystectomy Hx of colonoscopy (~2011) Family History Father Obesity HTN (hypertension) Mother Asthma Obesity HTN (hypertension) Atrial fibrillation Stomach problems Brother No problems noted. 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 Good respiratory effort Skin: hives on dorsal hands MSK: Pain bilateral MCPs with synovitis of left 2nd MCP. Normal range of motion of upper extremities. Tender bilateral trochanteric bursae. Negative JESUS. Tender to palpate bilateral SI joints. No lumbar spinous process tenderness. Good lumbar flexion. Tender right MTPs. Assessment & Plan Assessment & Plan (1) Ankylosing spondylitis: Comment: She has failed Cosentyx. Stressors at work have led to exacerbation of inflammatory back pain, enthesitis and new synovitis of hands. We discussed next steps of therapy. She would like to proceed with Rinvoq. We discussed side effects, benefits and drug monitoring. CRP remains elevated from May and November 2024 labs. She had side effect on multiple NSAIDs. She has tolerated ibuprofen so far. Rheumatology history: She has non radiographic ankylosing spondylitis. Present with inflammatory back pain, history of dactylitis and polyarthritis previously controlled on Humira but she developed diffuse hives after dose 05/27/2024. Enbrel caused injection site reaction (first biologic). Celebrex caused stomach upset in the past. Meloxicam caused her to feel hungry faster. Meloxicam caused her to feel hungry sooner than usual. Nabumetone caused GI upset. Code(s): M45.9 - Ankylosing spondylitis of unspecified sites in spine Category: Medical Qualifiers: Ankylosing spondylitis location: lumbar region Qualified Code(s): M45.6 - Ankylosing spondylitis lumbar region Plan: Continue Cosentyx maintenance every 4 weeks Labs for drug monitoring on high-risk medication ordered She will take ibuprofen 600 mg every 8 hours Okay to take Tylenol 1000 mg q.8 hourly with ibuprofen Start omeprazole GI prophylaxis while on chronic NSAID She will call office as soon as she has new health insurance. We will then process Rinvoq. Requesting report a MRI pelvis 2019 [facility] Return to clinic in 3 months Medications: New ibuprofen take with food 600 mg PO TID 270 tabs 1RF 90 days omeprazole 20 mg PO DAILY 30 caps 2RF Coding Level of Care Code Est Pt Level 4 (14248) Complex EM visit Add On G2211 Diagnoses Ankylosing spondylitis of lumbar region M45.6 Ankylosing spondylitis location: lumbar region
[2025-02-28 08:08] VITALS: BP 118/80; PULSE 92; O2SAT 98; BMI 40.9
== END 2025-02-28 08:48 | disposition home or self-care (01) ==
LOC: HO.RHES 07:59
PROVIDERS: PCP Internal Medicine; Visit Provider Internal Medicine Rheumatology
DX: M45.6 Ankylosing spondylitis lumbar region (principal)
CPT/HCPCS: 99214

== ENCOUNTER 2025-02-28 07:58 | Outpatient (REF) | payer BC, SELFPAY ==
[2025-02-28 13:41] LABS: MANUAL DIFF FLAG NO
[2025-02-28 14:06] LABS: Alanine Aminotransferase 16 U/L (0-31); Aspartate Amino Transferase 19 U/L (5-31); Estimated Glomerular Filt Rate > 60
[2025-02-28 14:14] LABS: Hematocrit 43.8 % (37.0-47.0); Hemoglobin 14.6 g/dl (12.0-16.0); Imm Gran Abs Auto 0.02 X10*3/uL (0.00-0.03); Imm Gran Pct Auto 0.3 % (0.0-0.4); Lymphocytes Absolute Auto 2.1 X10*3/uL (1.2-4.9); Mean Corpuscular HGB Conc 33.3 g/dl (31.0-35.0); Mean Corpuscular Hemoglobin 30.5 pg (27.0-33.0); Mean Corpuscular Volume 91.4 fL (80.0-98.0); NRBC Abs Auto 0.000 X10*3/uL (0.0-0.012); NRBC Pct Auto 0.0 /100WBC (0.0-0.2); Platelet Count 302 X10*3/uL (160-400); Red Blood Count 4.79 X10*6/uL (4.20-5.50); White Blood Count 7.6 X10*3/uL (4.8-10.8)
== END 2025-02-28 07:59 | disposition home or self-care (01) ==
LOC: HO.HKASLDS 07:58
PROVIDERS: PCP Internal Medicine; Visit Provider Internal Medicine Rheumatology
DX: M45.6 Ankylosing spondylitis lumbar region (principal); M46.1 Sacroiliitis, not elsewhere classified; Z51.81 Encounter for therapeutic drug level monitoring; Z79.899 Other long term (current) drug therapy
CPT/HCPCS: 36415; 82565; 84450; 84460; 85025; 85652; 86140

== ENCOUNTER 2025-04-16 08:23 | Outpatient (AMB) | payer OTHER, SELFPAY ==
[2025-04-16 08:31] VITALS: BP 118/80; PULSE 90; O2SAT 97; BMI 39.4
--- NOTE | 2025-04-16 08:31 | A.OFFPC_ITS ---
Vital Signs 04/16/25 08:31 Height 5 ft Weight 202 lb BMI 39.4 BP 118/80 Blood Pressure Location Lt brachial Position Sitting Pulse 90 Pulse Source Pulse Oximeter Pulse Oximetry (%) 97 Intake Visit Reasons: 9m follow up Allergies adalimumab (From Humira) Allergy (Mild, Verified 04/16/25 08:32) Rash itcing, with hives naproxen Allergy (Mild, Verified 04/16/25 08:32) hives etanercept (Enbrel) Adverse Reaction (Mild, Verified 04/16/25 08:32) injection site reaction methotrexate Adverse Reaction (Mild, Verified 04/16/25 08:32) rash, hairloss tizanidine Adverse Reaction (Mild, Verified 04/16/25 08:32) Unknown Medication List - Last Reconciled 04/16/25 by Jah Rodríguez MD cetirizine 20 mg (2 x 10 mg) PO BID 30 days dicyclomine 20 mg (2 x 10 mg) PO QID 30 days ibuprofen 600 mg PO TID 90 days lamotrigine 200 mg PO DAILY lamotrigine 50 mg PO DAILY linaclotide (Linzess) 72 mcg PO QAM [lions magda PO] awmcmm-bnyotugu-gcssfut (pork) 36,000-114,000- 180,000 unit (Creon) 2 caps PO BID loratadine (Claritin) 10 mg PO DAILY [magnesium PO] montelukast 10 mg PO DAILY 90 days norethindrone-e.estradiol-iron 1 mg-20 mcg (24)/75 mg (4) 1 tab PO DAILY omalizumab (Xolair) 75 mg subcut Q4W omeprazole 20 mg PO DAILY phentermine 15 mg PO DAILY [prebiotic PO DAILY] pregabalin 150 mg PO BID 90 days secukinumab (Cosentyx Pen) 150 mg subcut Q4W 4 weeks sennosides (senna) 25.8 mg PO BEDTIME tramadol 50 mg PO BID 90 days upadacitinib ER (Rinvoq) 15 mg PO DAILY Tobacco use date assessed: 02/22/25 Dental Screening Dental Screen Date: 07/20/24 HPI HPI Comments History of Present Illness Details History of Present Illness The patient is a 34 year old individual presenting for a follow-up visit for medication management. Weight Management: - The patient is taking phentermine for weight management and requests to increase the dose to 37.5 mg. - The patient reports previously stoppin g diet and exercise but is now back on track. - The patient's weight has decreased to 202 lbs from 209.7 lbs in February. Chronic Pain/ankylosing spondylitis - The patient takes pregabalin and trama dol for chronic pain. - A refill is needed for pregabalin, but not for tramadol at this time. 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 - Diet and exercise: The patient had tem porarily stopped dieting and exercising but has since resumed. - Weight management: The patient's weigh t has decreased from 209.7 lbs in February to 202 lbs currently. Diagnostic Results: - Blood pressure: 118/80 mmHg. - Weight: 202 lbs, which is a decrease f rom 209.7 lbs in February. [facility] Medical History Pain management Encounter for general adult medical examination with abnormal findings Mood disorder Rash Diarrhea Abdominal cramping Encounter for routine gynecological examination Headache syndrome Encounter for control pills maintenance PTSD (post-traumatic stress disorder) Chronic pain Anxiety, generalized Depression, major, recurrent Ankylosing spondylitis Surgical History History of carpal tunnel surgery of right wrist History of wisdom tooth extraction Hx of cholecystectomy Hx of colonoscopy (~2011) Family History Father Obesity HTN (hypertension) Mother Asthma Obesity HTN (hypertension) Atrial fibrillation Stomach problems Brother No problems noted. 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 Cognitive needs: No Hearing needs: No Vision needs: Yes Female Reproductive History Menstrual Age of Menarche: 11 Questionnaire Thrive Questionnaire Date Thrive assessed: 07/13/24 I am a: Patient What is your living situation today?: I have a place to live, but I am worried about losing it in the future Within the past 12 months, did the food you bought not last and you didn't have the money to get more?: Never true Within the past 12 months, did you worry whether your food would run out before you got money to buy more?: Never true Do you have trouble paying for medicines?: No Do you have trouble getting transportation to medical appointments?: No Do you have trouble paying your heating and electricity bill?: No Do you have trouble taking care of your child, family member or friend?: No Do you have trouble with day-to-day activities such as bathing, preparing meals, shopping, managing finances, etc.?: No Are you currently unemployed and looking for a job?: No Are you interested in more education?: No Please select the resources that you would like help with: None Currently or been in a relationship where the following occur: No concerns reported THRIVE Score: 1 JESSICA-7 AMB Questionnaire JESSICA-7 Date JESSICA - 7 assessed: 07/20/24 Source: Developed by Drs. Rosas Ravi, Nelly Jacobs, Corey Wallace and colleagues, with an educational parveen from [employer]. Review of Systems Narrative Review of Systems - General: No fever no chills - Neurological: No headaches no dizziness - Ear nose throat: No sore throat no hearing difficulty no ear pain - Cardiovascular: No syncope, no chest pain, no palpitations - Gastrointestinal: No nausea vomiting or diarrhea - Endocrine: No polyuria polydipsia no heat intolerance - Genitourinary: No dysuria , no blood in urine Physical exam (Primary Care) Vital Signs: Last Vital Signs Pulse 90 04/16/25 08:31 BP 118/80 04/16/25 08:31 Pulse Ox 97 04/16/25 08:31 BMI result Body Mass Index 39.4 Tobacco/Smoking Status: Tobacco use Status Tobacco use date assessed 02/22/25 04/16/25 08:33 Patient Tobacco Use Status Former Tobacco user 04/16/25 08:33 e-Cigarette/Vaping Use Former Use 04/16/25 08:33 Thrive Assessment: Date of Thrive Assessment Date Thrive assessed 07/13/24 04/16/25 08:33 Currently or been in a relationship where the following occur: No concerns reported Narrative Physical Exam - General: No acute distress - HEENT: No acute findings - Neck: Supple - Respiratory system: Able to talk in full sentences, no audible wheeze - Cardiovascular: S1-S2 regular in rate and rhythm - Gastrointestinal: No pain - Extremities: No new findings - 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: Alert awake oriented x3 motor intact - Skin: Normal turgor Coding Level of Care Code Est Pt Level 4 (67360) Diagnoses Ankylosing spondylitis of lumbar region M45.6 Ankylosing spondylitis location: lumbar region Class 2 obesity due to excess calories without serious comorbidity with body mass index (BMI) of 39.0 to 39.9 in adult E66.812; E66.09; Z68.39 Obesity classification: adult class 2 (BMI 35 - 39.9) Serious obesity comorbidity presence: without serious comorbidity Body mass index: BMI 39.0-39.9 Pain management R52 Moderate tramadol dependence F11.20 Assessment & Plan Assessment & Plan (1) Ankylosing spondylitis: Comment: She has failed Cosentyx. Stressors at work have led to exacerbation of inflammatory back pain, enthesitis and new synovitis of hands. We discussed next steps of therapy. She would like to proceed with Rinvoq. We discussed side effects, benefits and drug monitoring. CRP remains elevated from May and November 2024 labs. She had side effect on multiple NSAIDs. She has tolerated ibuprofen so far. Rheumatology history: She has non radiographic ankylosing spondylitis. Present with inflammatory back pain, history of dactylitis and polyarthritis previously controlled on Humira but she developed diffuse hives after dose 05/27/2024. Enbrel caused injection site reaction (first biologic). Celebrex caused stomach upset in the past. Meloxicam caused her to feel hungry faster. Meloxicam caused her to feel hungry sooner than usual. Nabumetone caused GI upset. Code(s): M45.9 - Ankylosing spondylitis of unspecified sites in spine Category: Medical Qualifiers: Ankylosing spondylitis location: lumbar region Qualified Code(s): M45.6 - Ankylosing spondylitis lumbar region (2) Obesity due to excess calories: Code(s): E66.09 - Other obesity due to excess calories Category: Medical Qualifiers: Obesity classification: adult class 2 (BMI 35 - 39.9) Serious obesity comorbidity presence: without serious comorbidity Body mass index: BMI 39.0- 39.9 Qualified Code(s): E66.812 - Obesity, class 2; E66.09 - Other obesity due to excess calories; Z68.39 - Body mass index [BMI] 39.0-39.9, adult (3) Pain management: Code(s): R52 - Pain, unspecified Category: Medical (4) Moderate tramadol dependence: Code(s): F11.20 - Opioid dependence, uncomplicated Category: Medical Plan Problem List - Weight management - Chronic pain lower back/ankylosing spondylitis - Medication management and refill Plan - A refill for pregabalin will be provided. - The dose of phentermine will be increased to 37.5 mg. - The patient is advised to continue with diet and exercise to support weight loss. - The patient will continue taking Rinvoq. - A follow-up appointment is scheduled for June. Medications: Changed From phentermine must administer 2 hours after breakfast 15 mg PO DAILY 30 caps 0RF To phentermine must administer 2 hours after breakfast 37.5 mg PO DAILY 30 caps 0RF Refilled pregabalin 150 mg PO BID 180 caps 0RF 90 days
--- OUTSIDE RECORDS SUMMARY | 2025-04-16 08:40 | XMS_ITS | Clinical Summary ---
Author Organization [facility] Address [address] [place] [address] Care Team Providers Care Last Waxer Name Role Phone Melonie Ji BRONWYN Primary Care Provider [phone] Surgical History Surgery Date Site/Laterality Comments CHOLECYSTECTOMY 2007 PROCEDURE: HISTORICAL CHOLECYSTECTOMY WISDOM TOOTH EXTRACTION PROCEDURE: HISTORICAL WISDOM TEETH EXTRACTION COLONOSCOPY 02/13/2010 PROCEDURE: CT COLONOSCOPY FLX DX W/COLLJ SPEC WHEN PFRMD; COMMENT: Normal Medical History Medical History Date Comments Bipolar affective disorder ( [facility]/HCC V24, CMS/HCC V28) DX:Bipolar affective disorde r ([facility]); COMMENT: Dr. Angélica Hebert OCD [...] series) 2016 Depression Screening 05/23/2024 COVID-19 Vaccine (2024- season) 2025 Influenza Vaccine (#1) 2025 RSV [...] age to complete this topic Care Teams Last Waxer Relationship Specialty Start Date End Date Melonie Ji FNP [address] [place] [address] [place] [id number] PCP - General Family Medicine 02/07/19
== END 2025-04-16 09:13 | disposition home or self-care (01) ==
PROVIDERS: PCP Internal Medicine; Visit Provider Internal Medicine
DX: M45.6 Ankylosing spondylitis lumbar region (principal); F11.20 Opioid dependence, uncomplicated; E66.812 Obesity, class 2; Z68.39 Body mass index [BMI] 39.0-39.9, adult; E66.09 Other obesity due to excess calories; R52 Pain, unspecified